=== PATIENT | female | born 1975 | race Caucasian/White ===

== ENCOUNTER 2019-11-26 15:12 | Emergency (ER) | payer SELFPAY ==
[2019-11-26 15:17] VITALS: BP 156/95; PULSE 84; RESP 16; TEMP 36.6; O2SAT 100; BMI 41.5
--- NOTE | 2019-11-26 15:56 | W.ED.SKABFB ---
HPI - Skin/Abscess/Foreign Bdy General: Chief complaint: Skin/Abscess/Foreign Body Stated complaint: Knot on left leg Time Seen by Provider: 11/26/19 15:19 History of Present Illness: HPI narrative: Patient has a swollen tender area on her left thigh lower aspect of it to the medial sidetimes last couple days also states she has urinary frequency MD complaint: other Onset (ago): day(s) (2) Quality: burning Relieving factors: none Associated symptoms: Deny chills, fever(s), nausea or vomiting Review of Systems Narrative: Tender area to the left thigh x2 days history of varicose veins. Const: Denies: fever, chills or body aches Eyes: Denies: change in vision or blurry vision ENMT: Denies: throat pain or nasal congestion Card: Denies: chest pain or shortness of breath on exertion Resp: Denies: shortness of breath, productive cough or non-productive cough GI: Denies: abdominal pain, nausea or vomiting : Reports: urinary frequency Musc: Denies: extremity pain Skin/Breast: Denies: rash Neuro: Denies: headache Psych: Denies: anxiety or depression Alan/Lymph: Denies: easy bruising PFSH ED PFSH: Statuses (acute, chronic, etc) shown below reflect problem list status as previously entered and may not be historically accurate Social History Smoking and tobacco status: current every day smoker Physical Exam Const: COMMON NORMALS: no apparent distress, average body habitus and oriented x3 HENMT: COMMON NORMALS: normocephalic HEAD & SCALP: normal to inspection and normocephalic FACE & SINUS: normal facial exam Eye: COMMON NORMALS: conjunctivae normal GENERAL EYE: normal appearance of both eyes CONJUNCTIVA: Yes conjunctivae normal Neck/C-Spine: COMMON NORMALS: no JVD Chest: COMMONS NORMALS: inspection of chest normal Resp: COMMON NORMALS: normal respiratory effort and clear to auscultation bilaterally AUSCULTATION: clear to auscultation bilaterally Cardio: COMMON NORMALS: no JVD, regular rate and regular rhythm RATE: regular rate RHYTHM: regular rhythm GI: COMMON NORMALS: normal to inspection, nondistended, normoactive bowel sounds Extremity: COMMON NORMALS: normal to inspection and full ROM Neuro: COMMON NORMALS: oriented x3 Skin: OTHER: Left thigh lower aspect medial aspect patient has what appears to be phlebitis to the varicose vein. Course Vital Signs: Vital signs: Vital Signs Temperature 98 F 11/26/19 15:17 Pulse Rate 84 11/26/19 15:17 Respiratory Rate 16 11/26/19 15:17 Blood Pressure 156/95 11/26/19 15:17 Pulse Oximetry 100 11/26/19 15:17 Coding Level of Care Code ED Manager Perioperative for Timothy Cueto
[2019-11-26 16:39] VITALS: BP 123/82; RESP 16
[2019-11-26 17:07] LABS: Urine Appearance SL Hazy (CLEAR); Urine Color Yellow (Yellow)
[2019-11-26 17:09] LABS: Add Urine Microscopic? YES; Bilirubin Urine Neg (NEGATIVE); Blood Urine Neg (Negative); Glucose Urine UA Norm (Normal); Ketones Urine Negative (Negative); Leukocyte Esterase Urine Negative (Negative); Nitrate Urine Negative (Negative); Protein Urine Neg (Negative); Specific Gravity, Urine 1.005 (1.005-1.030); Urobilinogen Urine Norm (Negative); pH Urine 5 (5-7)
[2019-11-26 17:14] LABS: Bacteria Urine TRACE; Squamous Epithelial Cell Urine 15-25 (0-5)
[2019-11-26 17:22] VITALS: BP 123/82; PULSE 78; RESP 18; O2SAT 97
== END 2019-11-26 17:42 | disposition home or self-care (01) ==
PROVIDERS: Emergency Provider Nurse Practitioner Family; Family Provider Internal Medicine; PCP Internal Medicine
DX: R22.42 Localized swelling, mass and lump, left lower limb (principal); R20.8 Other disturbances of skin sensation; R35.0 Frequency of micturition; F17.200 Nicotine dependence, unspecified, uncomplicated; Z86.79 Personal history of other diseases of the circulatory system
CPT/HCPCS: 81001; 99282

== ENCOUNTER 2020-05-07 21:15 | Emergency (ER) | payer SELFPAY ==
[2020-05-07 21:17] VITALS: BP 116/72; PULSE 86; RESP 18; TEMP 36.9; O2SAT 98; BMI 42.9
--- NOTE | 2020-05-07 21:29 | PC.NURSE ---
EKG done at 2124 and shown to ER doctor
[2020-05-07] MEDS: LORazepam 2 mg/mL INJ 1 mL 1 MG IVP (22:11)
[2020-05-07 22:22] VITALS: BP 105/71; PULSE 80; RESP 16; O2SAT 99
--- NOTE | 2020-05-07 22:40 | W.ED.ARRPALP ---
HPI - Arrhythmia/Palpitations General: Chief Complaint: Arrhythmia/Palpitations Stated Complaint: chest pain Time Seen by Provider: 05/07/20 21:29 History of Present Illness: HPI narrative: 44-year-old female with longstanding history of anxiety, thyroid disorder and arrhythmia presents to the emergency department with complaints of racing heart earlier tonight. She reports she has had both SVT as well as atrial fibrillation. Patient has not had atrial fibrillation or she on any blood thinners in quite some time. Patient denies any chest pain she reports she is a little anxious little short of breath. Patient reports she is had symptoms like this multiple times in the past. She has not recently been ill she denies any abdominal pain nausea vomiting or diarrhea. No skin rash. No other symptoms reported. She did take a Xanax just prior to arrival to see if it would help and it did a small degree but not really. MD complaint: rapid heart beat, heart racing , skipped beats , palpitations and irregular heart beat Onset (ago): hour(s) Duration: now resolved Severity: similar to previous episodes Context: occurred during rest Arrhythmia history: atrial fibrillation and SVT Associated symptoms: Reports anxiety, nausea, paresthesias, sense of impending doom and short of breath; Deny cough, diaphoresis, muscle cramps, syncope or vomiting Treatments prior to arrival: other (Xanax) Review of Systems General: Reports: 10 or more systems reviewed and unremarkable except in HPI and below Const: Denies: fever(s), chills or diaphoresis ENMT: Denies: throat pain Card: Reports: palpitations, irregular heart rhythm and lightheadedness; Denies: chest pain or syncope Resp: Denies: dyspnea GI: Reports: nausea; Denies: vomiting : Denies: flank pain or difficulty voiding Musc: Denies: muscle cramps Skin/Breast: Denies: rash or pruritus Neuro: Denies: headache(s) Psych: Reports: anxiety Physical Exam Const: COMMON NORMALS: no acute distress, average body habitus, patient oriented x3, no limitations, healthy appearing, alert and well nourished HENMT: COMMON NORMALS: normocephalic HEAD & SCALP: normocephalic Eye: COMMON NORMALS: Equal, round and reactive pupils present, EOMs intact bilaterally and conjunctivae normal CONJUNCTIVA: Yes conjunctivae normal PUPIL: Yes Equal, round and reactive pupils present Neck/C-Spine: COMMON NORMALS: full ROM, no lymphadenopathy, supple, no meningeal signs, no JVD, Thyroid normal and No carotid bruits THYROID: Thyroid normal Chest: COMMONS NORMALS: normal inspection of the chest and normal palpation of entire chest wall Resp: COMMON NORMALS: normal respiratory effort, No retractions, No use of accessory muscles, clear to auscultation bilaterally and percussion normal AUSCULTATION: clear to auscultation bilaterally PERCUSSION: percussion normal Cardio: COMMON NORMALS: no JVD GI: COMMON NORMALS: Normal to inspection, nondistended, normoactive bowel sounds present, Soft to palpation, non-tender, No hepatosplenomegaly present, no masses and no bruits PALPATION: Yes Soft to palpation and Yes No hepatosplenomegaly present : COMMON NORMALS: Yes no CVA tenderness BLADDER/KIDNEY EXAM: Yes no CVA tenderness Back/Pelvis: COMMON NORMALS: no CVA tenderness Extremity: COMMON NORMALS: normal to inspection, full ROM, capillary refill normal, no joint enlargement, no clubbing, cyanosis or edema, no calf tenderness and no pedal edema Neuro: COMMON NORMALS: patient oriented x3 SENSORIUM/ORIENTATION: Yes alert MENINGEAL SIGNS: Yes no meningeal signs Skin: COMMON NORMALS: no rashes or lesions noted, no wounds, turgor normal, no jaundice, no petechiae and no mottling GENERAL SKIN EXAM: no rashes or lesions noted and turgor normal Course Vital Signs: Vital signs: Vital Signs Temperature 98.5 F 05/07/20 21:17 Pulse Rate 80 05/07/20 22:22 Respiratory Rate 16 05/07/20 22:22 Blood Pressure 105/71 05/07/20 22:22 Pulse Oximetry 99 05/07/20 22:22 MDM - Arrhythmia/Palpitations MDM Narrative: Medical decision making narrative: 44-year-old female with a history of anxiety disorder and thyroid disorder presents to the emergency department with complaints of possible arrhythmia. She does have a history of SVT and atrial fibrillation reportedly. Patient's electrocardiogram revealed sinus rhythm with ventricular rate of 87 and no significant arrhythmia or ST elevation present. Recommend routine labs including thyroid-stimulating hormone and administration of Ativan and serial reexaminations. Discharge Plan Discharge Patient Disposition: Home, Self-Care Clinical Impression: Palpitations, Anxiety Condition: Stable Discharge Orders: Discharge Order (Routine); Ordered 05/07/20 Ordered By: Pato Lowe Referrals: Aaron Liao MD [Primary Care Provider] - Discharge Diet: Advance as tolerated Discharge Activity: Resume usual activity Patient Instructions: Anxiety (ED) Coding Level of Care Code ED Steward/Stewardess Second for Chg Fwd Exam Comprehensive
[2020-05-07 23:50] LABS: Basophils # 0.1 10^3/uL (0.0-0.1); Basophils % 0.4 %; Eosinophils # 0.2 10^3/uL (0.0-0.8); Eosinophils % 1.7 %; Hemoglobin 14.5 g/dL (11.5-15.3); Lymphocytes # 2.5 10^3/uL (0.8-4.8); Lymphocytes % 20.2 %; Mean Corpuscular HGB Conc 32.2 g/dL (30.0-36.0); Mean Corpuscular Hemoglobin 30.3 pg (28.0-34.0); Mean Corpuscular Volume 94.1 fL (81-99); Mean Platelet Volume 10.5 fL (7.4-10.4); Monocytes # 0.8 10^3/uL (0.2-0.9); Monocytes % 6.4 %; Neutrophils # 8.81 10^3/uL (1.8-7.7); Nucleated Red Blood Cells % 0 %; Platelet Count 303 10^3/cmm (130-400); Red Blood Count 4.78 10^6/uL (4.1-5.3); Red Cell Distribution Width 14.8 % (12.1-15.1); White Blood Count 12.4 10^3/uL (4.0-10.0)
[2020-05-08 00:04] VITALS: BP 106/65; PULSE 66; RESP 16; TEMP 36.7; O2SAT 97
[2020-05-08 00:36] LABS: Blood Urea Nitrogen 9 mg/dL (6-20); Carbon Dioxide 24 mmol/L (22-29); Chloride 100 mmol/L (98-107); Glucose 120 mg/dL (65-115); Magnesium 1.8 mg/dL (1.7-2.3); Osmolality Calculated 281 mOsm/kg (285-295); Sodium 137 mmol/L (136-145); Thyroid Stimulating Hormone 1.31 uIU/mL (0.27-4.20)
[2020-05-08 03:22] LABS: Add Urine Microscopic? YES; Bilirubin Urine Neg (NEGATIVE); Blood Urine Neg (Negative); Glucose Urine UA Norm (Normal); Ketones Urine Negative (Negative); Leukocyte Esterase Urine 1+ (Negative); Nitrate Urine Negative (Negative); Protein Urine Neg (Negative); Specific Gravity, Urine 1.015 (1.005-1.030); Urine Appearance Hazy (CLEAR); Urine Color Yellow (Yellow); Urobilinogen Urine Norm (Negative); pH Urine 5 (5-7)
[2020-05-08 03:32] LABS: Add Urine Culture? No; Bacteria Urine 2+; Squamous Epithelial Cell Urine 25-40 (0-5); Transitional Epi Cells Urine 0-4 /hpf; WBC Urine 25-40 /hpf (0-5)
== END 2020-05-08 01:57 | disposition home or self-care (01) ==
PROVIDERS: Emergency Medicine; Emergency Provider Family Medicine; PCP Internal Medicine
DX: R00.2 Palpitations (principal); F41.9 Anxiety disorder, unspecified
CPT/HCPCS: 12345; 36415; 80048; 81001; 81003; 83735; 84443; 85025; 96374; 96375; 99283; J2060

== ENCOUNTER 2023-04-20 09:25 | Emergency (ER) | payer MEDICAID, SELFPAY ==
[2023-04-20 09:37] VITALS: BP 147/95; PULSE 84; RESP 16; TEMP 36.7; O2SAT 98; BMI 39.1
--- NOTE | 2023-04-20 09:53 | ED_ITS ---
HPI - Extremity Problem General: Chief complaint: Extremity Problem,Nontraumatic Stated complaint: Right leg pain Time Seen by Provider: 04/20/23 09:37 Source: patient Mode of arrival: ambulatory Limitations: no limitations History of Present Illness: Patient is a 47-year-old female presents to ED today with a complaint of right lower extremity pain. Patient states she initially began noticing discomfort about 3 days ago after waking up. She states since that time she has noticed swelling to the right calf and pain radiating up to the posterior aspect of her thigh. She has not noticed any redness/warmth or coolness/pallor to the extremity. She has no known history of DVT. No recent surgery, she is not on hormone therapy, no recent periods of prolonged inactivity. MD Complaint: extremity pain and extremity swelling Onset (ago): day(s) Pain Consistency: constant Location: right and lower extremity Radiation: none Relieving factors: nothing Exacerbating factors: nothing Associated symptoms: Reports no associated symptoms; Deny chest pain or fever(s) Context: other (hx of varicose veins) Review of Systems Const: Denies: fever(s), chills, body aches, fatigue or malaise Card: Denies: chest pain, palpitations, lightheadedness, syncope or pre- syncope Resp: Denies: dyspnea Musc: Reports: extremity pain and extremity swelling; Denies: neck pain, back pain, joint pain, joint swelling, joint redness, joint warmth or limited range of motion Neuro: Denies: numbness in extremities, weakness in extremities or sensory changes [facility] ED PFSH: Social History Smoking and tobacco status: current every day smoker Physical Exam Const: COMMON NORMALS: no acute distress, patient oriented x3, no limitations, alert and well nourished GENERAL APPEARANCE: cooperative NUTRITIONAL APPEARANCE: obese ORIENTATION/CONSCIOUSNESS: Yes awake, Yes oriented to person, Yes oriented to place and Yes oriented to time Resp: COMMON NORMALS: normal respiratory effort and clear to auscultation bilaterally AUSCULTATION: clear to auscultation bilaterally Cardio: COMMON NORMALS: regular rate and regular rhythm RATE: regular rate RHYTHM: regular rhythm Extremity: COMMON NORMALS: full ROM, capillary refill normal and no joint enlargement GENERAL: Yes normal exam except as noted OTHER: pt has pain/swelling to R calf/positive Tomeka's; sensation normal; DP/PT pulses and cap refill are normal; varicosities noted Neuro: COMMON NORMALS: patient oriented x3, moves all extremities, no focal motor deficits, no sensory deficits noted and gait normal SENSORIUM/ORIENTATION: Yes alert, Yes oriented to person, Yes oriented to place and Yes oriented to time Skin: COMMON NORMALS: no rashes or lesions noted GENERAL SKIN EXAM: no rashes or lesions noted Course Vital Signs: Vital signs: Vital Signs Temperature 98.0 F 04/20/23 09:37 Pulse Rate 62 04/20/23 12:03 Respiratory Rate 16 04/20/23 09:37 Blood Pressure 131/79 04/20/23 12:03 Pulse Oximetry 94 04/20/23 12:03 Oxygen Delivery Me thod Room Air 04/20/23 09:37 MDM - Extremity (Nontraumatic) Medical Decision Making US negative for DVT. Recommend ice, elevation, compression stockings, follow-up with primary care next week. Return ED precautions given. Discharge Plan Discharge Patient Disposition: Home Clinical Impression: Pain and swelling of right lower leg Condition: Stable Prescriptions: No Action furosemide 40 mg tablet 40 mg PO BID alprazolam 1 mg tablet 1 mg PO TID PRN (Reason: Anxiety) omeprazole 40 mg capsule,delayed release(DR/EC) 40 mg PO DAILY venlafaxine 100 mg tablet 100 mg PO BID potassium chloride 20 mEq tablet,ER particles/crystals 20 meq PO QID levothyroxine 50 mcg tablet 50 mcg PO DAILY metoprolol tartrate 50 mg tablet 50 mg PO BID triamterene-hydrochlorothiazid 37.5-25 mg tablet 1 tab PO DAILY diltiazem HCl 30 mg tablet 30 mg PO TID Aspir-81 81 mg Tablet,Delayed Release (Dr/Ec) 81 mg PO DAILY Discharge Orders: Discharge ED (Routine); Ordered 04/20/23 Ordered By: Berat Cline Referrals: Aaron Liao MD [Primary Care Provider] - Coding Level of Care Code ED Engraver Pantograph for Chg Nory
--- NOTE | 2023-04-20 10:01 | USCV_ITS ---
Mildred Rojas Age: 47 Gender: F : 1975 Exam Date: 04/20/2023 10:33 Ordering Phys: Berta Cline Technologist: Blas Blank [place]am Location[place] [facility] [place] [facility] [place] Indication: rt lowwer extremity pain FINDINGS: Normal 2-D Doppler and augmentation and compressibility throughout the lower extremity venous structures. Additional imaging through the proximal calf veins also reveals no thrombus. Limited evaluation of the greater saphenous vein is patent with no thrombus. CONCLUSIONS No DVT right lower extremity. Dr. Linda Whitman DO (Electronically Signed) Final Date: 20 April 2023 12:50 S
[2023-04-20 12:03] VITALS: BP 131/79; PULSE 62; O2SAT 94
[2023-04-20 13:25] VITALS: RESP 16; O2SAT 100
[2023-04-20] MEDS: morphine 4 mg/mL SDV 1 mL IM (13:25)
[2023-04-20] MEDS: ondansetron 2 mg/ML SDV 2 mL 4 MG IM (13:25)
[2023-04-20 13:33] VITALS: BP 154/96; PULSE 63; RESP 16; O2SAT 100
[2023-04-20 13:34] VITALS: BP 154/96; PULSE 63; RESP 16; O2SAT 100
== END 2023-04-20 13:36 | disposition home or self-care (01) ==
PROVIDERS: Emergency Provider Physician Assistant; PCP Internal Medicine
DX: M79.604 Pain in right leg (principal); M79.89 Other specified soft tissue disorders; Z79.82 Long term (current) use of aspirin; F17.210 Nicotine dependence, cigarettes, uncomplicated
CPT/HCPCS: 93971; 96372; 99284; J2270; J2405

== ENCOUNTER 2023-09-06 10:30 | Emergency (ER) | payer MEDICAID, SELFPAY ==
[2023-09-06 10:55] VITALS: BP 167/86; PULSE 79; RESP 18; TEMP 36.8; O2SAT 98; BMI 40.3
--- NOTE | 2023-09-06 11:20 | ED_ITS ---
HPI - Abdominal Pain General: Chief Complaint: Abdominal Pain Stated Complaint: lower abd pain Time Seen by Provider: 09/06/23 10:58 Source: patient Mode of arrival: ambulatory History of Present Illness: 48-year-old female presents emergency room complaining of left lower quadrant abdominal pain this been going on for the last week. Sharp pain spasming in nature intermittent. It has become more more intense over the last week she previously had hysterectomy still has a left ovary. She denies any medic easier melena dysuria urgency or frequency. MD elicited complaint: abdominal pain Pertinent past history: none Associated Symptoms: Denies chills, dysuria and fever(s) Review of Systems Const: Denies: fever(s) or chills Card: Denies: chest pain Resp: Denies: dyspnea GI: Denies: abdominal pain : Denies: dysuria, urinary frequency or urinary urgency Musc: Denies: neck pain or back pain Skin/Breast: Denies: rash PFSH ED PFSH: Social History Smoking and tobacco/nicotine status: current every day tobacco/nicotine user Physical Exam Const: GENERAL APPEARANCE: cooperative and comfortable ORIENTATION/CONSCIOUSNESS: Yes awake, Yes oriented to person, Yes oriented to place and Yes oriented to time HENMT: COMMON NORMALS: normocephalic, atraumatic and hearing grossly normal bilaterally HEAD & SCALP: normocephalic and atraumatic Resp: COMMON NORMALS: normal respiratory effort, No retractions, No use of accessory muscles and clear to auscultation bilaterally AUSCULTATION: clear to auscultation bilaterally Cardio: COMMON NORMALS: regular rate, regular rhythm and No murmurs present (Cardio) RATE: regular rate RHYTHM: regular rhythm GI: COMMON NORMALS: No hepatosplenomegaly present AUSCULTATION: Yes normoactive bowel sounds PALPATION: Yes Tenderness to palpation present (GI) (Mild left lower quadrant), No Guarding due to palpation present (GI) and Yes No hepatosplenomegaly present Extremity: COMMON NORMALS: normal to inspection, capillary refill normal, no clubbing, cyanosis or edema, no calf tenderness and no pedal edema Neuro: SENSORIUM/ORIENTATION: Yes oriented to person, Yes oriented to place and Yes oriented to time Skin: COMMON NORMALS: no rashes or lesions noted GENERAL SKIN EXAM: no rashes or lesions noted Course Vital Signs: Vital signs: Vital Signs Temperature 98.3 F 09/06/23 10:55 Pulse Rate 79 09/06/23 10:55 Respiratory Rate 18 09/06/23 12:26 Blood Pressure 167/86 09/06/23 10:55 Pulse Oximetry 98 09/06/23 12:26 Oxygen Delivery Me thod Room Air 09/06/23 12:26 MDM - Abdominal Pain Medical Decision Making Labs and imaging reviewed no significant leukocytosis CT shows diverticulitis without perforation or abscess discharge home with outpatient treatment. Medical Records I reviewed the patient's medical records. Lab Data I reviewed the patient's lab results. 09/06/23 11:46 09/06/23 11:46 Labs/Radiology: Laboratory Results WBC 10.72 10^3/uL (3.29-11.43) 09/06/23 11:46 RBC 4.76 10^6/uL (3.85-5.65) 09/06/23 11:46 Hgb 14.60 g/dL (11.27-16.99) 09/06/23 11:46 Hct 44.9 % (36-47) 09/06/23 11:46 MCV 94.3 fl (85-98) 09/06/23 11:46 MCH 30.7 pg (27-33) 09/06/23 11:46 MCHC 32.5 g/dL (30-55) 09/06/23 11:46 RDW 15.1 % (12.1-15.1) 09/06/23 11:46 Plt Count 315 10^3/cmm (157-399) 09/06/23 11:46 MPV 10.0 fL (7.4-10.4) 09/06/23 11:46 Neut % (Auto) 70.4 % 09/06/23 11:46 Lymph % (Auto) 19.6 % 09/06/23 11:46 Dougherty % (Auto) 6.6 % 09/06/23 11:46 Eos % (Auto) 2.4 % 09/06/23 11:46 Baso % (Auto) 0.5 % 09/06/23 11:46 Neut # (Auto) 7.55 10^3/uL (1.8-7.7) 09/06/23 11:46 Lymph # (Auto) 2.1 10^3/uL (0.8-4.8) 09/06/23 11:46 Dougherty # (Auto) 0.7 10^3/uL (0.2-0.9) 09/06/23 11:46 Eos # (Auto) 0.3 10^3/uL (0.0-0.8) 09/06/23 11:46 Baso # (Auto) 0.1 10^3/uL (0.0-0.1) 09/06/23 11:46 Nucleated RBC % (auto) 0 % 09/06/23 11:46 Nucleated RBCs # 0.0 /100WBC 09/06/23 11:46 Sodium 136 mmol/L (136-145) 09/06/23 11:46 Potassium 3.1 mmol/L (3.5-5.1) L 09/06/23 11:46 Chloride 95 mmol/L (98-107) L 09/06/23 11:46 Carbon Dioxide 27 mmol/L (22-29) 09/06/23 11:46 Anion Gap 17.1 (5-19) 09/06/23 11:46 BUN 8 mg/dL (6-20) 09/06/23 11:46 Creatinine 0.9 mg/dL (0.5-0.9) 09/06/23 11:46 GFR Calculation 66.8 mL/min (90-130) L 09/06/23 11:46 Glucose 186 mg/dL (65-115) H 09/06/23 11:46 Calculated Osmolality 285 mOsm/kg (285-295) 09/06/23 11:46 Calcium 9.4 mg/dL (8.5-10.5) 09/06/23 11:46 Total Bilirubin 0.3 mg/dL (0.15-1.2) 09/06/23 11:46 AST 20 U/L (0-32) 09/06/23 11:46 ALT 17 U/L (0-33) 09/06/23 11:46 Alkaline Phosphatase 101 U/L (35-105) 09/06/23 11:46 Total Protein 7.3 g/dL (6.6-8.7) 09/06/23 11:46 Albumin 3.7 g/dL (3.5-5.2) 09/06/23 11:46 Globulin 3.6 g/dL (1.3-4.6) 09/06/23 11:46 Lipase 7 U/L (13-60) L 09/06/23 11:46 Urine Color Dark yellow (Yellow) 09/06/23 11:20 Urine Appearance Clear (CLEAR) 09/06/23 11:20 Urine pH 6 (5-7) 09/06/23 11:20 Ur Specific [place] 1.015 (1.005-1.030) 09/06/23 11:20 Urine Protein Neg (Negative) 09/06/23 11:20 Urine Glucose (UA) Norm (Normal) 09/06/23 11:20 Urine Ketones Negative (Negative) 09/06/23 11:20 Urine Blood Neg (Negative) 09/06/23 11:20 Urine Nitrate Negative (Negative) 09/06/23 11:20 Urine Bilirubin Neg (Negative) 09/06/23 11:20 Urine Urobilinogen Norm mg/dL (Negative) 09/06/23 11:20 Ur Leukocyte Esterase Negative (Negative) 09/06/23 11:20 All radiology interpretation(s) finalized by discharge Discharge Plan Discharge Patient Disposition: Home Clinical Impression: Diverticulitis Condition: Stable Prescriptions: New Cipro 500 mg tablet 500 mg PO BID Qty: 14 0RF hydrocodone-acetaminophen 5-325 mg tablet 1 tab PO Q6H PRN (Reason: pain) Qty: 15 0RF ondansetron HCl 4 mg tablet 4 mg PO Q6H PRN (Reason: nausea and vomiting) Qty: 20 0RF No Action furosemide 40 mg tablet 80 mg PO DAILY alprazolam 1 mg tablet 1 mg PO TID PRN (Reason: Anxiety) omeprazole 40 mg capsule,delayed release(DR/EC) 40 mg PO DAILY venlafaxine 100 mg tablet 100 mg PO BID potassium chloride 20 mEq tablet,ER particles/crystals 20 meq PO QID metoprolol tartrate 50 mg tablet 50 mg PO BID triamterene-hydrochlorothiazid 37.5-25 mg tablet 1 tab PO DAILY diltiazem HCl 30 mg tablet 30 mg PO TID aspirin [Aspir-81] 81 mg Tablet,Delayed Release (Dr/Ec) 81 mg PO DAILY Discharge Orders: Discharge ED (Routine); Ordered 09/06/23 Ordered By: Chandana Wick Referrals: Aaron Liao MD [Primary Care Provider] - Discharge Diet: Usual diet Discharge Activity: Resume usual activity Patient Instructions: Diverticulitis (ED), Diverticulitis Diet (ED), Opioid Safety, Pain Management Activity Restrictions/Additional Instructions: Thank you for choosing [facility] for your healthcare needs today. Please realize this is an emergency room and that we are providing you with a medical screening exam and this may not be complete and all inclusive of all the testing and or work up that you may need to determine your ailment or severity of your illness. It is very important that you follow up as instructed or that you return to the Emergency Department should you have concerns or if your condition changes or worsens in any way. You are seen in the emergency room for left lower quadrant abdominal pain CT shows that you have acute diverticulitis. This can be treated as an outpatient with oral antibiotics pain medications and nausea medications clear liquid diet for the next 24 to 48 hours and advance as tolerated. You should follow-up with your primary care doctor within the next 2 weeks at some point in the next few months you should have a colonoscopy done. Coding Level of Care Code ED Inspector Returned Materials for Timothy Cueto
--- NOTE | 2023-09-06 11:21 | CT_ITS ---
WS: [id number] CT ABDOMEN PELVIS TECHNIQUE: Contrast-enhanced CT of the abdomen and pelvis with coronal and sagittal reformatted image s. CLINICAL INFORMATION: abd pain COMPARISON: 2019 DLP: 1198.[address] scans at [facility] use at least one of these dose optimization techniques: automated e xposure control; mA and/or kV adjustment per patient size (includes targeted exams where dose is matc hed to clinical indication); or iterative reconstruction. FINDINGS: Normal appendix in the RIGHT lower quadrant. No evidence of acute appendicitis. Sigmoid diverticulosi s. Inflammatory stranding and edema in the LEFT lower quadrant about the sigmoid colon compatible wit h acute diverticulitis. No evidence of drainable abscess or fluid collection. Lung bases are well aerated. Diffuse fatty filtration of the liver. Mild hepatomegaly. Normal portal vein and splenic vein. Normal spleen. Spinal granulomas. Normal GE junction. Cholecystectomy clips. M ild fatty atrophy of the pancreas. Normal caliber abdominal aorta. Celiac and SMA are patent. Adrenal glands are normal. Normal renal parenchymal enhancement. No hydronephrosis. Small LEFT renal cyst. Tiny fat-containing umbilical hernia. Multi follicular LEFT ovary is unchanged in appearance. Scleros is along both sacroiliac joints compatible with sacroiliitis. Multiple sclerotic lesions in the aceta bulum and L2 and L3 vertebral bodies unchanged since 2019 likely benign bone islands or enchondromas. IMPRESSION: 1. Acute diverticulitis with inflammatory stranding and edema about the sigmoid colon in the LEFT lo wer quadrant. No evidence of drainable abscess or fluid collection. 2. Normal appendix in the RIGHT lower quadrant. No evidence of acute appendicitis. 3. Hepatomegaly with diffuse fatty filtration of the liver. 4. Prior cholecystectomy. Message LEFT for Dr. Wick 09/06/2023 1:22 PM
[2023-09-06 11:24] LABS: Add Urine Microscopic? NO; Charge for UA Resulting for Rev
[2023-09-06 11:27] LABS: Protein Urine Neg (Negative); Specific Gravity, Urine 1.015 (1.005-1.030); Urine Appearance Clear (CLEAR); Urine Color Dark Yellow (Yellow); pH Urine 6 (5-7)
[2023-09-06 11:28] LABS: Bilirubin Urine Neg (Negative); Blood Urine Neg (Negative); Glucose Urine UA Norm (Normal); Ketones Urine Negative (Negative); Leukocyte Esterase Urine Negative (Negative); Nitrate Urine Negative (Negative); Urobilinogen Urine Norm (Negative)
[2023-09-06 11:53] LABS: Basophils # 0.1 10^3/uL (0.0-0.1); Basophils % 0.5 %; Eosinophils # 0.3 10^3/uL (0.0-0.8); Eosinophils % 2.4 %; Hematocrit 44.9 % (36-47); Lymphocytes # 2.1 10^3/uL (0.8-4.8); Lymphocytes % 19.6 %; Mean Corpuscular HGB Conc 32.5 g/dL (30-55); Mean Corpuscular Hemoglobin 30.7 pg (27-33); Mean Corpuscular Volume 94.3 fl (85-98); Monocytes # 0.7 10^3/uL (0.2-0.9); Monocytes % 6.6 %; Neutrophils # 7.55 10^3/uL (1.8-7.7); Neutrophils % 70.4 %; Nucleated Red Blood Cells % 0 %; Platelet Count 315 10^3/cmm (157-399); Red Blood Count 4.76 10^6/uL (3.85-5.65); Red Cell Distribution Width 15.1 % (12.1-15.1); White Blood Count 10.72 10^3/uL (3.29-11.43)
[2023-09-06 12:11] LABS: Alanine Aminotransferase 17 U/L (0-33); Albumin Level 3.7 g/dL (3.5-5.2); Alkaline Phosphatase 101 U/L (35-105); Anion Gap 17.1 (5-19); Aspartate Amino Transferase 20 U/L (0-32); Blood Urea Nitrogen 8 mg/dL (6-20); Calcium 9.4 mg/dL (8.5-10.5); Carbon Dioxide 27 mmol/L (22-29); Chloride 95 mmol/L (98-107); Globulin 3.6 g/dL (1.3-4.6); Glomerular Filtration Rate 66.8 mL/min (90-130); Glucose 186 mg/dL (65-115); Lipase 7 U/L (13-60); Osmolality Calculated 285 mOsm/kg (285-295); Potassium 3.1 mmol/L (3.5-5.1); Sodium 136 mmol/L (136-145); Total Bilirubin 0.3 mg/dL (0.15-1.2); Total Protein 7.3 g/dL (6.6-8.7)
[2023-09-06 12:26] VITALS: RESP 18; O2SAT 98
[2023-09-06] MEDS: iohexol 350 mg/mL 500 mL Btl (per mL) IV (12:37)
[2023-09-06] MEDS: ondansetron 2 mg/ML SDV 2 mL 4 MG IVP (14:17)
[2023-09-06] MEDS: morphine 4 mg/mL SDV 1 mL IVP (14:18)
== END 2023-09-06 14:22 | disposition home or self-care (01) ==
PROVIDERS: Emergency Provider Family Medicine; PCP Internal Medicine
DX: K57.92 Diverticulitis of intestine, part unspecified, without perforation or abscess without bleeding (principal); Z79.82 Long term (current) use of aspirin; Z72.0 Tobacco use
CPT/HCPCS: 36415; 74177; 80053; 81003; 83690; 85025; 96374; 96375; 99285; J2270; J2405; Q9967

== ENCOUNTER 2023-10-06 19:46 | Emergency (ER) | payer MEDICAID, SELFPAY ==
[2023-10-06 19:47] VITALS: BMI 43.5
--- NOTE | 2023-10-06 19:49 | ECG_ITS ---
[facility] Test Date: 2023-10-06 Pat Name: Mildred Rojas Department: Room: Gender: Female Vinyl Dipper: : 1975 Requested By: Nelson Arellano Order Number: [id number] Jeffrey MD: Solitario Walker M.D. Measurements Intervals [place] Rate: 89 P: 75 DC: 140 QRS: 52 QRSD: 110 T: 61 QT: 380 QTc: 464 Interpretive Statements SINUS RHYTHM ST DEVIATION AND MODERATE T-WAVE ABNORMALITY, CONSIDER ANTERIOR ISCHEMIA [-0.1+ mV T-WAVE IN V3/V4] Compared to ECG 04/10/2019 21:31:03 T-wave abnormality now present Possible ischemia now present Electronically Signed On 10-07-2023 19:36:37 SCOUTS by Solitario Walker M.D. [id number]
[2023-10-06 19:50] VITALS: BP 132/82; PULSE 85; RESP 20; TEMP 36.8; O2SAT 96
--- NOTE | 2023-10-06 19:58 | XRR_ITS ---
PROCEDURE INFORMATION: Exam: XR Chest Exam date and time: 10/06/2023 8:16 PM Age: 48 years old Clinical indication: Chest pressure; Patient HX: C/O chest pain; Additional info: R sided cp TECHNIQUE: Imaging protocol: Radiologic exam of the chest. Views: 1 view. COMPARISON: CR XR chest 1V [id number] 04/10/2019 9:14 PM FINDINGS: Lungs: Right upper lobe calcified granuloma. Pleural spaces: Unremarkable. No pleural effusion. No pneumothorax. Heart/Mediastinum: Unremarkable. No cardiomegaly. Bones/joints: Unremarkable. XR/XR chest 1V portable [id number] IMPRESSION: Negative for infiltrate
--- NOTE | 2023-10-06 20:01 | ED_ITS ---
HPI - Chest Pain 2 General: Chief Complaint: Chest Pain Stated Complaint: Chest Pain Time Seen by Provider: 10/06/23 19:48 History of Present Illness: 48-year-old female with no prior history of coronary disease. She does have history of atrial fibrillation and SVT. She presents after sudden onset right- sided chest pain while at dinner a couple of hours prior to arrival. She is short of breath with her pain. She notes that it is painful to breathe. She has had a cough. No fever. She denies nausea. She has a history of cholecystectomy. She does have a history of reflux, as well as hypertension. Associated symptoms: Reports dyspnea; Deny abdominal pain, fever(s), nausea, palpitations or vomiting Review of Systems 2 Const: Denies: fever(s), chills or body aches Eyes: Denies: change in vision Card: Reports: chest pain; Denies: palpitations Resp: Reports: dyspnea and non-productive cough; Denies: productive cough or wheezing GI: Denies: abdominal pain, nausea, vomiting, diarrhea or hematochezia : Denies: difficulty voiding Skin/Breast: Denies: rash Neuro: Denies: weakness in extremities, dizziness or confusion PFSH ED 2 PFSH: Social History Smoking and tobacco/nicotine status: current every day tobacco/nicotine user Physical Exam 2 Const: COMMON NORMALS: no acute distress GENERAL APPEARANCE: cooperative; not ill appearing and not frail appearing HENMT: COMMON NORMALS: normocephalic, atraumatic and Normal external nose present HEAD & SCALP: normocephalic and atraumatic FACE & SINUS: normal facial exam and face symmetric NOSE: Normal external nose present Eye: COMMON NORMALS: Equal, round and reactive pupils present and EOMs intact bilaterally PUPIL: Yes Equal, round and reactive pupils present Neck/C-Spine: GENERAL: Yes trachea midline Chest: CHEST: Yes Symmetrical chest wall rise and Yes tenderness (Right lower lateral chest wall) Resp: COMMON NORMALS: normal respiratory effort, No retractions, No use of accessory muscles and clear to auscultation bilaterally AUSCULTATION: clear to auscultation bilaterally Cardio: COMMON NORMALS: regular rate and regular rhythm RATE: regular rate RHYTHM: regular rhythm GI: COMMON NORMALS: Normal to inspection, nondistended, normoactive bowel sounds present Extremity: COMMON NORMALS: no pedal edema Neuro: JIMMY COMA SCALE: document GCS findings [place] coma scale eye opening: Spontaneous Jimmy coma scale verbal response: Orientated [place] coma scale motor response: Obey commands Jimmy coma scale total score: 15 S ENSORY EXAM: Yes extremities (intact) Psych: COMMON NORMALS: speech normal SPEECH: Yes normal speech Skin: COMMON NORMALS: no rashes or lesions noted GENERAL SKIN EXAM: no rashes or lesions noted Course 2 Vital Signs: Vital signs: Vital Signs Temperature 98.2 F 10/06/23 19:50 Pulse Rate 85 10/06/23 19:50 Respiratory Rate 20 H 10/06/23 19:50 Blood Pressure 132/82 10/06/23 19:50 Pulse Oximetry 96 10/06/23 19:50 MDM - Chest Pain Medical Decision Making 48-year-old female with mainly right-sided pleuritic chest discomfort. Her vitals have been good. White blood cell count is 12. Creatinine is 1. Blood sugar is 144. Chest x-ray was negative. EKG shows a sinus rhythm in the inferior leads, with biphasic T waves present. [place] is normal. QRS interval is 121 ms, indicating IV conduction delay. Other intervals are normal. Rate is 65. CT of the chest is performed due to high D-dimer, which shows bilateral pulmonary emboli in the segmental and subsegmental branches. With no hypoxia, stable vitals, no right heart strain evident, negative troponins, normal BNP, she was given the choice of observation or home. She would like to go home. She is given Lovenox here. She is given a prescription for rivaroxaban, which should be on formulary for her. Close outpatient follow-up. Return for any worsening symptoms. Lab Data 10/06/23 19:57 10/06/23 19:57 Radiology Impressions Chest X-Ray 10/06/23 19:58 IMPRESSION: Negative for infiltrate Chest CTA 10/06/23 21:48 IMPRESSION: 1. Bilateral pulmonary emboli in the segmental and subsegmental branch pulmonary arteries, negative for right heart strain given an RV to LV ratio of approximately 0.8. 2. Cardiomegaly. 3. Hepatic steatosis. 4. Patchy bilateral largely ground-glass airspace opacities may reflect alveolar edema and/or an infectious process. 5. Left adrenal hypertrophy suspected, similar to prior exam. ADDENDUM: 10/06/23 6554 THIS REPORT CONTAINS FINDINGS THAT MAY BE CRITICAL TO PATIENT CARE. The findings were verbally communicated via telephone conference with NELSON VALENTINO at 10:57 PM RN BARIATRIC on 10/06/2023. The findings were acknowledged and understood. Laboratory Results WBC 11.81 10^3/uL (3.29-11.43) H 10/06/23 19:57 RBC 4.44 10^6/uL (3.85-5.65) 10/06/23 19:57 Hgb 13.60 g/dL (11.27-16.99) 10/06/23 19:57 Hct 40.9 % (36-47) 10/06/23 19:57 MCV 92.1 fl (85-98) 10/06/23 19:57 MCH 30.6 pg (27-33) 10/06/23 19:57 MCHC 33.3 g/dL (30-55) 10/06/23 19:57 RDW 15.8 % (12.1-15.1) H 10/06/23 19:57 Plt Count 319 10^3/cmm (157-399) 10/06/23 19:57 MPV 11.2 fL (7.4-10.4) H 10/06/23 19:57 Neut % (Auto) 68.9 % 10/06/23 19:57 Lymph % (Auto) 21.9 % 10/06/23 19:57 [place] % (Auto) 6.4 % 10/06/23 19:57 Eos % (Auto) 2.2 % 10/06/23 19:57 Baso % (Auto) 0.3 % 10/06/23 19:57 Neut # (Auto) 8.13 10^3/uL (1.8-7.7) H 10/06/23 19:57 Lymph # (Auto) 2.6 10^3/uL (0.8-4.8) 10/06/23 19:57 [place] # (Auto) 0.8 10^3/uL (0.2-0.9) 10/06/23 19:57 Eos # (Auto) 0.3 10^3/uL (0.0-0.8) 10/06/23 19:57 Baso # (Auto) 0.0 10^3/uL (0.0-0.1) 10/06/23 19:57 Nucleated RBC % (auto) 0 % 10/06/23 19:57 Nucleated RBCs # 0.0 /100WBC 10/06/23 19:57 D-Dimer 2.46 ug/mLFEU (0-0.59) H 10/06/23 19:57 Sodium 138 mmol/L (136-145) 10/06/23 19:57 Potassium 3.6 mmol/L (3.5-5.1) 10/06/23 19:57 Chloride 96 mmol/L (98-107) L 10/06/23 19:57 Carbon Dioxide 27 mmol/L (22-29) 10/06/23 19:57 Anion Gap 18.6 (5-19) 10/06/23 19:57 BUN 9 mg/dL (6-20) 10/06/23 19:57 Creatinine 1.0 mg/dL (0.5-0.9) H 10/06/23 19:57 GFR Calculation 59.2 mL/min (90-130) L 10/06/23 19:57 Glucose 144 mg/dL (65-115) H 10/06/23 19:57 Calculated Osmolality 287 mOsm/kg (285-295) 10/06/23 19:57 Calcium 9.5 mg/dL (8.5-10.5) 10/06/23 19:57 Total Bilirubin 0.3 mg/dL (0.15-1.2) 10/06/23 19:57 AST 21 U/L (0-32) 10/06/23 19:57 ALT 26 U/L (0-33) 10/06/23 19:57 Alkaline Phosphatase 100 U/L (35-105) 10/06/23 19:57 Troponin T Baseline < 6 ng/L (0-10) 10/06/23 19:57 Troponin T 120 Minute 6.02 ng/L (0-10) 10/06/23 21:39 Delta Troponin T 0.54082 ABS# (0-10) 10/06/23 21:39 NT-Pro-B Natriuret Pep 68 pg/mL (0-125) 10/06/23 19:57 Total Protein 7.3 g/dL (6.6-8.7) 10/06/23 19:57 Albumin 4.0 g/dL (3.5-5.2) 10/06/23 19:57 Globulin 3.3 g/dL (1.3-4.6) 10/06/23 19:57 Lipase 8 U/L (13-60) L 10/06/23 19:57 All radiology interpretation(s) finalized by discharge Discharge Plan Discharge Patient Disposition: Home Clinical Impression: Pulmonary embolism Condition: Stable Prescriptions: New Percocet 7.5-325 mg tablet 1 tab PO Q6H PRN (Reason: pain) Qty: 10 0RF rivaroxaban 15 mg tablet 15 mg PO BID 21 Days Qty: 42 0RF Rx Instructions: must administer with a meal/food No Action furosemide 40 mg tablet 80 mg PO DAILY alprazolam 1 mg tablet 1 mg PO TID PRN (Reason: Anxiety) omeprazole 40 mg capsule,delayed release(DR/EC) 40 mg PO DAILY venlafaxine 100 mg tablet 100 mg PO BID potassium chloride 20 mEq tablet,ER particles/crystals 20 meq PO QID metoprolol tartrate 50 mg tablet 50 mg PO BID triamterene-hydrochlorothiazid 37.5-25 mg tablet 1 tab PO DAILY diltiazem HCl 30 mg tablet 30 mg PO TID aspirin [Aspir-81] 81 mg Tablet,Delayed Release (Dr/Ec) 81 mg PO DAILY Cipro 500 mg tablet 500 mg PO BID Qty: 14 0RF hydrocodone-acetaminophen 5-325 mg tablet 1 tab PO Q6H PRN (Reason: pain) Qty: 15 0RF ondansetron HCl 4 mg tablet 4 mg PO Q6H PRN (Reason: nausea and vomiting) Qty: 20 0RF Discharge Orders: Discharge ED (Routine); Ordered 10/06/23 Ordered By: Nelson Valentino Referrals: Aaron Liao MD [Primary Care Provider] - 1-3 days Patient Instructions: Pulmonary Embolism (ED), Opioid Safety, Pain Management Activity Restrictions/Additional Instructions: Medication as directed. Return for worsening shortness of breath, worsening chest pain despite treatment, fever, other concerning symptoms. See your doctor next week. He will need to continue medication for treatment of this condition. Coding Level of Care Code ED Lending Advisor for Timothy Cueto
[2023-10-06] MEDS: ondansetron 2 mg/ML SDV 2 mL 4 MG IVP ×2 (20:03→23:29)
[2023-10-06] MEDS: morphine 4 mg/mL SDV 1 mL IVP (20:09)
[2023-10-06 20:10] LABS: Basophils % 0.3 %; Eosinophils # 0.3 10^3/uL (0.0-0.8); Eosinophils % 2.2 %; Hematocrit 40.9 % (36-47); Lymphocytes # 2.6 10^3/uL (0.8-4.8); Lymphocytes % 21.9 %; Mean Corpuscular HGB Conc 33.3 g/dL (30-55); Mean Corpuscular Hemoglobin 30.6 pg (27-33); Mean Corpuscular Volume 92.1 fl (85-98); Mean Platelet Volume 11.2 fL (7.4-10.4); Monocytes # 0.8 10^3/uL (0.2-0.9); Monocytes % 6.4 %; Neutrophils # 8.13 10^3/uL (1.8-7.7); Neutrophils % 68.9 %; Nucleated Red Blood Cells % 0 %; Platelet Count 319 10^3/cmm (157-399); Red Blood Count 4.44 10^6/uL (3.85-5.65); Red Cell Distribution Width 15.8 % (12.1-15.1); White Blood Count 11.81 10^3/uL (3.29-11.43)
[2023-10-06] MEDS: diphenhydrAMINE 50 mg/mL SDV 1mL IVP (20:19)
[2023-10-06 21:08] LABS: D Dimer 2.46 ug/mLFEU (0-0.59)
[2023-10-06 21:16] LABS: Troponin(5th) Baseline < 6 ng/L (0-10)
[2023-10-06 21:19] LABS: Alanine Aminotransferase 26 U/L (0-33); Alkaline Phosphatase 100 U/L (35-105); Aspartate Amino Transferase 21 U/L (0-32); Blood Urea Nitrogen 9 mg/dL (6-20); Calcium 9.5 mg/dL (8.5-10.5); Carbon Dioxide 27 mmol/L (22-29); Chloride 96 mmol/L (98-107); Globulin 3.3 g/dL (1.3-4.6); Glomerular Filtration Rate 59.2 mL/min (90-130); Glucose 144 mg/dL (65-115); Lipase 8 U/L (13-60); NT Pro B Type Natriuretic Pept 68 pg/mL (0-125); Osmolality Calculated 287 mOsm/kg (285-295); Sodium 138 mmol/L (136-145); Total Bilirubin 0.3 mg/dL (0.15-1.2); Total Protein 7.3 g/dL (6.6-8.7)
[2023-10-06 21:30] LABS: Anion Gap 18.6 (5-19); Potassium 3.6 mmol/L (3.5-5.1)
[2023-10-06 21:45] VITALS: BP 136/95; PULSE 72; RESP 20; O2SAT 91
--- NOTE | 2023-10-06 21:48 | CTR_ITS ---
PROCEDURE INFORMATION: Exam: CTA Chest With Contrast Exam date and time: 10/06/2023 10:14 PM Age: 48 years old Clinical indication: Pain and abnormal findings; Abnormal diagnostic tests; Elevated d-dimer; Chest pressure; Patient HX: Chest pain with dimer of 2.47. TECHNIQUE: Imaging protocol: Computed tomographic angiography of the chest with contrast. Exam focused on the arteries. 3D rendering (Not supervised by radiologist): MIP and/or 3D reconstructed images were created by the technologist. Radiation optimization: All CT scans at this facility use at least one of these dose optimization techniques: automated exposure control; mA and/or kV adjustment per patient size (includes targeted exams where dose is matched to clinical indication); or iterative reconstruction. Contrast material: OMNI 350; Contrast volume: 60 ml; Contrast route: INTRAVENOUS (IV); REPORTING DATA: Count of CT and Cardiac NM exams in prior 12 months: This patient has received [address] and 0 known cardiac nuclear medicine studies in the 12 months prior to the current study. COMPARISON: CT angio chest w abd pel w con 08/14/2017 10:25 PM RADIATION DOSE METRICS: Total DLP (mGy-cm): 510.53 FINDINGS: Pulmonary arteries: Bilateral pulmonary emboli in the segmental and subsegmental branch pulmonary arteries, negative for right heart strain given an RV to LV ratio of approximately 0.8. Aorta: Unremarkable. No aortic aneurysm. No aortic dissection. Lungs: Patchy bilateral largely ground-glass airspace opacities may reflect alveolar edema and/or an infectious process. Pleural spaces: Unremarkable. No pneumothorax. No pleural effusion. Heart: Cardiomegaly. Lymph nodes: Unremarkable. No enlarged lymph nodes. Liver: Hepatic steatosis. Adrenal glands: Left adrenal hypertrophy suspected, similar to prior exam. Bones/joints: Unremarkable. No acute fracture. Soft tissues: Unremarkable. CT/CT angio chest PE protcl [id number] IMPRESSION: 1. Bilateral pulmonary emboli in the segmental and subsegmental branch pulmonary arteries, negative for right heart strain given an RV to LV ratio of approximately 0.8. 2. Cardiomegaly. 3. Hepatic steatosis. 4. Patchy bilateral largely ground-glass airspace opacities may reflect alveolar edema and/or an infectious process. 5. Left adrenal hypertrophy suspected, similar to prior exam.
--- NOTE | 2023-10-06 21:58 | ECG_ITS ---
[facility] Test Date: 2023-10-06 Pat Name: Mildred Rojas Department: Room: Gender: Female Software Installation Engineer: : 1975 Requested By: Nelson Arellano Order Number: [id number] Jeffrey MD: Solitario Walker M.D. Measurements Intervals [place] Rate: 65 P: 66 WI: 148 QRS: 16 QRSD: 121 T: 13 QT: 419 QTc: 438 Interpretive Statements SINUS RHYTHM MODERATE INTRAVENTRICULAR CONDUCTION DELAY [110+ ms QRS DURATION] NONSPECIFIC ST & T-WAVE ABNORMALITY Compared to ECG 10/06/2023 19:49:12 Intraventricular conduction delay now present Possible ischemia no longer present T-wave abnormality still present Electronically Signed On 10-07-2023 19:47:31 GAS PIPE LAYER by Solitario Walker M.D. [email or web address]
[2023-10-06 22:04] LABS: Troponin 5 2HR 6.02 ng/L (0-10); Troponin 5 2HR Delta 0.02001 ABS# (0-10)
[2023-10-06] MEDS: iohexol 350 mg/mL 500 mL Btl (per mL) IV (22:27)
[2023-10-06 22:59] VITALS: BP 132/78; PULSE 68; RESP 14; O2SAT 95
[2023-10-06 23:30] VITALS: BP 126/89; PULSE 67; RESP 14; O2SAT 94
[2023-10-06 23:36] VITALS: RESP 19; O2SAT 95
[2023-10-06] MEDS: fentaNYL 50 mcg/mL INJ 2mL 100 MCG IVP (23:36)
[2023-10-06] MEDS: enoxaparin 120 mg/0.8 mL Syringe SUBCUT (23:48)
[2023-10-06] MEDS: oxyCODONE-APAP 5-325 mg Tablet 2 TAB PO (23:50)
[2023-10-07] VITALS: BP 139/98; PULSE 69; RESP 14; O2SAT 94
[2023-10-07 00:43] VITALS: BP 159/65; PULSE 80; RESP 21; O2SAT 95
[2023-10-07 03:51] LABS: Adenovirus Not Detected (NOT DETECT); Chlamydia Pneumoniae Not Detected (NOT DETECT); Coronavirus 229E,HKU1,NL63,OC4 Not Detected (NOT DETECT); Human Metapneumovirus Not Detected (NOT DETECT); Human Rhinovirus/Enterovirus Not Detected (NOT DETECT); Influenza A Not Detected (NOT DETECT); Influenza A H1 Not Detected (NOT DETECT); Influenza A H1-2009 Not Detected (NOT DETECT); Influenza A H3 Not Detected (NOT DETECT); Influenza B Not Detected (NOT DETECT); Mycoplasma Pneumoniae Not Detected (NOT DETECT); Parainfluenza Virus Type 1 Not Detected (NOT DETECT); Parainfluenza Virus Type 2 Not Detected (NOT DETECT); Parainfluenza Virus Type 3 Not Detected (NOT DETECT); Parainfluenza Virus Type 4 Not Detected (NOT DETECT); Respiratory Syncytial Virus A Not Detected (NOT DETECT); Respiratory Syncytial Virus B Not Detected (NOT DETECT); SARS-COV-2 Not Detected (NOT DETECT)
== END 2023-10-07 00:43 | disposition home or self-care (01) ==
PROVIDERS: Emergency Provider Emergency Medicine; PCP Internal Medicine
DX: I26.99 Other pulmonary embolism without acute cor pulmonale (principal); Z79.82 Long term (current) use of aspirin; Z72.0 Tobacco use; Z11.52 Encounter for screening for COVID-19
CPT/HCPCS: 36415; 71045; 71275; 80053; 83690; 83880; 84484; 85025; 85378; 87635; 93005; 96372; 96374; 96375; 96376; 99285; J1200; J1650; J2270; J2405; J3010; Q9967

== ENCOUNTER 2025-08-23 14:19 | Emergency (ER) | payer MEDICAID, SELFPAY ==
--- OUTSIDE RECORDS SUMMARY | 2024-06-24 07:00 | XMS_ITS ---
Author Organization [facility] Address [address] [place] [address] Care Team Providers Care Computer Information Science Professor Name Role Phone Aaron Liao MD Primary Care Provider Alejandro Carpenter [phone] REASON FOR VISIT SVT/Paroxysmal Afib per Dr. Liao- 01/10/24 Encounters Encounter Location Date Provider Diagnosis [facility] [address] [place] [phone] 06/24/2024 Alejandro Sales Plan Of Treatment Next Appt Details Provider Name:Dianne Gómez karla, 08/27/2025 01:00:00 PM, [address] [place] [address], [phone], Progress Notes * Mildred ROJAS ADOB:[birth year] (50 yo F)Acc No.[id number]:06/24/2024 Progress Notes Patient: Mildred Pierce Provider: Olinda Sales MD :1975 A ge:49 Y S ex:Female Date:06/24/2024 Address: [facility], [id number] Pcp:aAron Liao MD Subjective: * Chief Complaints: * S VT/Paroxysmal Afib per Dr. Liao- 01/10/24 * Electronic signature of Ricco Sales MD on 08/23/2025 at 02:22 PM METAL FINISH INSPECTOR Sign off status: Pending * Provider: Olinda Sales MD Date: 0 06/24/2024 Generated for Valdemar estrella/Rolan/Yolanda on: 10/23/2024 02:22 PM METAL FINISH INSPECTOR
--- OUTSIDE RECORDS SUMMARY | 2024-06-26 07:45 | XMS_ITS ---
Author Organization [facility] Address [address] [place] [address] Care Team Providers Care Machine Set Up Technician Name Role Phone Aaron Liao MD Primary Care Provider Alejandro Carpenter [phone] Encounters Encounter Location Date Provider Diagnosis [facility] [address] [place] [phone] 06/26/2024 Alejandro Sales Plan Of Treatment Next Appt Details Provider Name:Dianne Gómez karla, 08/27/2025 01:00:00 PM, [address] [place] [address], [phone], Progress Notes * Mildred ROJAS ADOB:[birth year] (50 yo F)Acc No.[id number]:06/26/2024 Patient: Vilma bartholomewMildred ontiveros Provider: Olinda Sales MD :1975 A ge:49 Y S ex:Female Date:06/26/2024 Address:[facility] [facility] [place], [id number] Pcp:Aaron Liao MD Check In:01:48 PM CSTCheck O ut:01:49 PM FISHER SPONGE HOOKING Billing Information: * Procedure Codes: * Electronic signature of Ricco Sales MD on 08/23/2025 at 02:22 PM FISHER SPONGE HOOKING Sign off status: Pending * Provider: Olinda Sales MD Date: 0 06/26/2024 Generated for Valdemar estrella/Rolan/Yolanda on: 1 10/23/2024 02:22 PM FISHER SPONGE HOOKING
--- OUTSIDE RECORDS SUMMARY | 2025-01-21 02:15 | XMS_ITS ---
Author Organization [facility] Address [address] [place] [address] Care Team Providers Care Gis Consultant Name Role Phone Aaron Liao MD Primary Care Provider Alejandro Carpenter [phone] Encounters Encounter Location Date Provider Diagnosis [facility] [address] [place] [phone] 01/21/2025 Alejandro Sales Plan Of Treatment Next Appt Details Provider Name:Dianne Gómez karla, 08/27/2025 01:00:00 PM, [address] [place] [address], [phone], Progress Notes * Mildred ROJAS ADOB:[birth year] (50 yo F)Acc No.[id number]:01/21/2025 Patient: Vilma Mildred liu Provider: Olinda Sales MD :1975 A ge:49 Y S ex:Female Date:01/21/2025 Address:[facility], [id number] Pcp:Aaron Liao MD Billing Information: * Procedure Codes: * Electronic signature of Ricco Sales MD on 08/23/2025 at 02:22 PM ATHLETE MANAGER Sign off status: Pending * Provider: Olinda Sales MD Date: 0 01/21/2025 Generated for Valdemar estrella/Faxing/eTransmitting on: 10/23/2024 02:22 PM ATHLETE MANAGER
--- OUTSIDE RECORDS SUMMARY | 2025-02-03 07:00 | XMS_ITS ---
Author Organization [facility] Address [address] [place] [address] Care Team Providers Care Credit Officer Name Role Phone Aaron Liao MD Primary Care Provider Alejandro Carpenter [phone] Encounters Encounter Location Date Provider Diagnosis [facility] [address] [place] [phone] 02/03/2025 Alejandro Sales Plan Of Treatment Next Appt Details Provider Name:Dianne Gómez karla, 08/27/2025 01:00:00 PM, [address] [place] [address], [phone], Progress Notes * Mildred ROJAS ADOB:[birth year] (50 yo F)Acc No.[id number]:02/03/2025 Patient: Vilma Mildred liu Provider: Olinda Sales MD :1975 A ge:49 Y S ex:Female Date:02/03/2025 Address:[facility] [facility] [facility], [id number] Pcp:Aaron Liao MD * Electronic signature of Ricco Sales MD on 08/23/2025 at 02:23 PM TRANSPLANT COORDINATOR Sign off status: Pending * Provider: Olinda Sales MD Date: 0 02/03/2025 Generated for Valdemar estrella/Rolan/eTransmitting on: 1 10/23/2024 02:23 PM TRANSPLANT COORDINATOR
--- OUTSIDE RECORDS SUMMARY | 2025-02-09 02:15 | XMS_ITS ---
Author Organization [facility] Address [address] [place] [address] Care Team Providers Care Slitter Creaser Slotter Operator Name Role Phone Aaron Liao MD Primary Care Provider Alejandro Carpenter [phone] Encounters Encounter Location Date Provider Diagnosis [facility] [address] [place] [phone] 02/09/2025 Alejandro Sales Plan Of Treatment Next Appt Details Provider Name:Dianne Gómez karla, 08/27/2025 01:00:00 PM, [address] [place] [address], [phone], Progress Notes * Mildred ROJAS ADOB:[birth year] (50 yo F)Acc No.[id number]:02/09/2025 Patient: Vilma Mildred liu Provider: Olinda Sales MD :1975 A ge:49 Y S ex:Female Date:02/09/2025 Address:[facility] [facility] [facility], [id number] Pcp:Aaron Liao MD Check In:07:48 AM WHIZZER OPERATOR Billing Information: * Procedure Codes: * Electronic signature of Ricco Sales MD on 08/23/2025 at 02:23 PM WHIZZER OPERATOR Sign off status: Pending * Provider: Olinda Sales MD Date: 0 02/09/2025 Generated for Valdemar estrella/Rolan/Yolanda on: 1 10/23/2024 02:23 PM WHIZZER OPERATOR
--- OUTSIDE RECORDS SUMMARY | 2025-03-03 03:30 | XMS_ITS ---
Author Organization [facility] Address [address] [place] [address] Care Team Providers Care Mortar Mixer Operator Name Role Phone Aaron Liao MD Primary Care Provider Unavail able Alejandro Sales Unavailable [phone] Dianne Park Unavailable [phone] REASON FOR VISIT 4 wks s/p 03/04/25 angio/lg Encounters Encounter Location Date Provider Diagnosis [facility] [address] [place] [address], [place] [address] 03/03/2025 Dianne Park Plan Of Treatment Next Appt Details Provider Name:Dianne acosta, 08/27/2025 01:00:00 PM, [address] [place] [address], [place], [phone], Progress Notes * Mildred ROJAS ADOB:[birth year] (50 yo F)Acc No.[id number]:03/03/2025 Patient: Vilma Mildred liu Provider: Kevin Park NP :1975 A ge:49 Y S ex:Female Date:03/03/2025 Address:[address] [place] [address] [facility], [id number] Pcp:Aaron Liao MD Subjective: * Chief Complaints: * 4 wks s/p 03/04/25 angio/lg * Electronic signature of Dianne Park MSN, BUTTONHOLE MARKER-C on 08/23/2025 at 02:23 PM VOCATIONAL NURSING INSTRUCTOR Sign off status: Pending * Provider: Kevin Park NP Date: 0 03/03/2025 Generated for Valdemar estrella/Rolan/Yolanda on: 1 10/23/2024 02:23 PM VOCATIONAL NURSING INSTRUCTOR
--- OUTSIDE RECORDS SUMMARY | 2025-03-04 04:00 | XMS_ITS ---
Author Organization [facility] Address [address] [place] [address] Care Team Providers Care Employee Relations Specialist Name Role Phone Aaron Liao MD Primary Care Provider Alejandro Carpenter [phone] REASON FOR VISIT Right rad approach [facility] possible ptca 03/04/2025 @ 10 am, check in at 8 am//gs Encounters Encounter Location Date Provider Diagnosis [facility] [address] [place] [phone] 03/04/2025 Alejandro Sales Plan Of Treatment Next Appt Details Provider Name:Dianne Gómez karla, 08/27/2025 01:00:00 PM, [address] [place] [address], [place], [address], Progress Notes * Mildred ROJAS ADOB:[birth year] (50 yo F)Acc No.[id number]:03/04/2025 [place] Patient: Vilma Mildred liu Provider: Olinda Sales MD :1975 A ge:49 Y S ex:Female Date:03/04/2025 Address:[address] [facility], [id number] Pcp:Aaron Liao MD Subjective: * Chief Complaints: * R ight rad approach [facility] possible ptca 03/04/2025 @ 10 am, check in at 8 am//gs Billing Information: * Procedure Codes: * Electronic signature of Ricco Sales MD on 08/23/2025 at 02:23 PM MODEL ENGINE MECHANIC Sign off status: Pending * Provider: Olinda Sales MD Date: 0 03/04/2025 Generated for Valdemar estrella/Rolan/Yolanda on: 1 10/23/2024 02:23 PM MODEL ENGINE MECHANIC
--- OUTSIDE RECORDS SUMMARY | 2025-05-07 04:30 | XMS_ITS ---
Author Organization [facility] Address [address] [place] [address] Care Team Providers Care Cubing Machine Tender Name Role Phone Aaron Liao MD Primary Care Provider Unavail able Alejandro Sales Unavailable [phone] Lenin Walker Unavailable [phone] REASON FOR VISIT [id number] Encounters Encounter Location Date Provider Diagnosis [facility] [address] [place] [address] [place] [address] 05/07/2025 Lenin Walker Plan Of Treatment Next Appt Details Provider Name:Dianne Gómez karla, 08/27/2025 01:00:00 PM, [address], [phone], Progress Notes * Mildred ROJAS ADOB:[birth year] (50 yo F)Acc No.[id number]:05/07/2025 Progress Notes Patient: Vilma brodyjúnior Mildred Edgardo Provider: Bryce Walker MD :1975 A ge:49 Y S ex:Female Date:05/07/2025 Address:[address] [place] [id number] Pcp:Aaron Liao MD Subjective: * Chief Complaints: * [phone] Care Plan Details* * Electronic signature of Estela Walker MD on 08/23/2025 at 02:22 PM CHILD NURSE Sign off status: Pending * Provider: Bryce Walker MD Date: 0 05/07/2025 Generated for Valdemar estrella/Rolan/Yolanda on: 1 10/23/2024 02:22 PM CHILD NURSE
[2025-08-23 14:19] VITALS: BP 137/96; PULSE 157; RESP 18; TEMP 38.1; O2SAT 96; BMI 48.4
--- NOTE | 2025-08-23 14:23 | XRR_ITS ---
PROCEDURE INFORMATION: Exam: XR Chest Exam date and time: 08/23/2025 2:42 PM Age: 50 years old Clinical indication: Pain; Chest pressure; Prior surgery; Surgery date: 6+ months; Surgery type: Cardiac stents; Additional info: Chest pain; SOB. TECHNIQUE: Imaging protocol: Radiologic exam of the chest. Views: 1 view. COMPARISON: CT angio chest PE protcl [id number] 10/06/2023 10:14 PM FINDINGS: Lungs: Mild increased density density in the lower lungs more marked on the left. Some of this may represent overlying soft tissue but some may represent some mild edema. Stable granuloma right upper lobe. Pleural spaces: Unremarkable. No pleural effusion. No pneumothorax. Heart/Mediastinum: Mild cardiomegaly. Pulmonary vascularity not congested. Bones/joints: Uerq-tr-gvhwqtzu degenerative changes thoracic spine. Mild degenerative changes AC joints. Upper abdomen: Unremarkable. XR/XR chest 1V portable 30748 IMPRESSION: 1. Mild increased density in the lower lungs more prominent on the left. Some may represent overlying soft tissue but this suspicious suspicious for edema. 2. Mild cardiomegaly. 3. Degenerative changes thoracic spine and AC joints.
--- OUTSIDE RECORDS SUMMARY | 2025-08-23 14:23 | XMS_ITS | Patient Health Record ---
Author Organization [facility] Address [address] [place] [address] Care Team Providers Care Show Design Supervisor Name Role Phone Aaron Liao MD Primary Care Provider Unavail able Henrry Alejandro Unavailable [phone] Lenin Walker Unavailable [phone] Dianne Park Unavailable [phone] Allergies Allergen (clinical drug ingredient) Drug/Non Drug Allergy documented on EMR Reaction Allergy Type Onset Date Status sulfamethoxazole / trimethoprim Sulfamethoxazole-Tri methoprim , Drug Allergy Active cephalexin Cephalexin , Drug Allergy Activ e morphine Morphine Unknown Drug Allergy Active Substance with sulfonamide structure and antibacterial mechanism of action (substance) Sulfa Antibiotics hives Drug Allergy A ctive Results Component Value Reference Range Flag Notes Schedule Confirmation Reviewed date:03/09/2025 08:09:28 AM Interpretation: Performing Lab: Notes/Report: Heart Cath Lt poss PTCA NM Lexiscan Cardiolite-[id number] Reviewed date:02/09/2025 03:49:06 PM Interpretation: Performing Lab: Notes/Report: [id number] NM Lexiscan Cardiolite-[id number] Reviewed date:02/11/2025 04:42:01 PM Interpretation: Performing Lab: Notes/Report: See Below For Report NM Lexiscan Cardiolite Read See Below For Report Lipid Panel Reflex DLDL 8003 0, 21902 Reviewed date:03/09/2025 08:09:28 AM Interpretation: Performing Lab: Notes/Report: Trig 198 NA Classification Guidelines:Triglyceride s Adults: >20yrs Desirable <150 Borderline High 150-199 High 200-499 Very high >=500 Children: Male 0-4 yr 22-99 5-9 yr 30-101 10-14 yr 32-125 15-19 yr 37-148 Children: Female 0-4 yr 34-112 5-9 yr 32-105 10-14 yr 37-131 15-19 yr 39-132 Chol 191 <=200 MG/DL HDL 29 39-96 MG/DL LOW Reference Ranges:HDL Male: 5-9y 38-75 10-14y 37-74 15-19y 30-63 >=20y 40-59 Female: 5-9y 36-73 10-14y 37-70 15-19y 35-74 >=20y 40-59 CH/HDL 6.6 0.0-4.9 RATIO HI LDL 122 0-130 MG/DL LDL result is inaccurate , if Trig is >400 mg/dl. See DLDL result. Basic Metabolic Panel (BMP) 34930 Reviewed date:03/09/2025 08:09:28 AM Interpretation: Performing Lab: Notes/Report: Sodium 136 136-145 MMOL/L Potassium 3.6 3.5-5.1 MMOL/L Chloride 100 98-107 MMOL/L CO2 29.3 20.0-31.0 MMOL/L Glucose Serum 166 71-110 MG/DL HI Testing p erformed at [facility], [address] [place] [address] [place] [address]. CLIA ID#: [id number] BUN 10 7-21 MG/DL Creat 1.00 .51-1.17 MG/DL W-ynjpwu-l-benzoquinon e imine (NAPQI) is a metabolite of acetaminophen, NAPQI concentrations of apparoximately 10 mg/L correlation to toxic levels of acetaminophen demonstrates a greater than or equil to 10% change in results. NAPQI concentrations greater than this may lead to falsely depressed results for patient samples. Use of this assay is not recommended for patients undergoing treatment with phenindione, due to the potential for falsely depressed results. GFR 68.8 NA Calculation pe rformed from GFR calculator provided by the National Kidney Foundation. Glomerular Filtration rate(GRF) is the best overall index of kidney function. Normal GFR varies according to age,sex, body size, and declines with age. The National Kidney Foundation recommends using the CKD-EPI Creatinine Equation(2020) to estimate GFR. Anion Gap 10 5-15 BUN/Creat Ratio 10.0 12.0-20.0 % LOW Calcium 8.6 8.7-10.4 MG/DL LOW Osmo Serum,Calculated 285 280-300 MOSM/KG Troponin-I 28413 Reviewed date:03/09/2025 08:09:28 AM Interpretation: Performing Lab: Notes/Report: Troponin-I 16 2-34 pg/mL WBC Auto Diff--93253 Reviewed date:03/09/2025 08:09:28 AM Interpretation: Performing Lab: Notes/Report: Added by Discern Rules Neutro Auto% 53.3 40.0-70.0 % Lymph Auto% 34.9 22.0-44.0 % [place] Auto% 7.5 3.0-7.0 % HI Eos Auto% 3.2 2.0-4.0 % Baso Auto% 0.6 0.0-1.0 % NRBC% .00 .00-.20 /100 intact WBC's Neutro Abs 4.31 .80-7.70 Absolute Neutrophil Count 4310 NA Lymph Abs 2.82 .10-4.10 [place] Abs .61 .20-1.00 Eos Abs .26 .00-.40 Baso Abs .05 .00-.20 NRBC# .00 .00-.20 X10'3 Imm Gran Abs .04 .00-.10 Imm Gran% .5 .0-.4 % HI CBC Ref[place] Diff 27[address], 8 1949 Reviewed date:03/09/2025 08:09:28 AM Interpretation: Performing Lab: Notes/Report: WBC 8.1 4.5-11.0 X10'3 RBC 4.31 4.00-5.20 X10'6 Hgb 12.2 12.0-16.0 G/DL Hct 39.0 36.0-46.0 % MCV 90.5 80.0-100.0 FL MCH 28.3 27.0-31.0 PG MCHC 31.3 31.0-37.0 G/DL Platelet 337 150-400 X10'3 RDW-SD 52.9 35.0-49.0 FL HI RDW-CV 15.9 12.2-15.6 % HI MPV 10.4 9.2-12.0 FL Review Auto Diff Conf POCT-ACT--NO CPT Reviewed date:03/09/2025 08:09:28 AM Interpretation: Performing Lab: Notes/Report: POCT-ACT 241 75-120 SEC HI zzzHeart Cath Lt poss PTCA Reviewed date:03/09/2025 08:09:28 AM Interpretation: Performing Lab: Notes/Report: [id number] Lipid Panel Reflex DLDL 8006 1, 57171 Reviewed date:03/09/2025 08:09:28 AM Interpretation: Performing Lab: Notes/Report: Diagnosis Description: Abnormal result of other cardiovascular function study Diagnosis Description: Paroxysmal atrial fibrillation Diagnosis Description: Gastro-esophageal reflux disease without esophagitis Diagnosis Description: Chest pain, unspecified Diagnosis Description: Shortness of breath Diagnosis Description: Palpitations Diagnosis Description: Other fatigue Trig 151 NA Classification Guidelines:Triglyceride s Adults: >20yrs Desirable <150 Borderline High 150-199 High 200-499 Very high >=500 Children: Male 0-4 yr 22-99 5-9 yr 30-101 10-14 yr 32-125 15-19 yr 37-148 Children: Female 0-4 yr 34-112 5-9 yr 32-105 10-14 yr 37-131 15-19 yr 39-132 Chol 225 <=200 MG/DL HI HDL 34 39-96 MG/DL LOW Reference Ranges:HDL Male: 5-9y 38-75 10-14y 37-74 15-19y 30-63 >=20y 40-59 Female: 5-9y 36-73 10-14y 37-70 15-19y 35-74 >=20y 40-59 CH/HDL 6.7 0.0-4.9 RATIO HI LDL 161 0-130 MG/DL HI LDL result is inaccurate , if Trig is >400 mg/dl. See DLDL result. Basic Metabolic Panel (BMP) 36525 Reviewed date:03/09/2025 08:09:28 AM Interpretation: Performing Lab: Notes/Report: Diagnosis Description: Abnormal result of other cardiovascular function study Diagnosis Description: Paroxysmal atrial fibrillation Diagnosis Description: Gastro-esophageal reflux disease without esophagitis Diagnosis Description: Chest pain, unspecified Diagnosis Description: Shortness of breath Diagnosis Description: Palpitations Diagnosis Description: Other fatigue Sodium 137 136-145 MMOL/L Potassium 4.1 3.5-5.1 MMOL/L Chloride 101 98-107 MMOL/L CO2 30.2 20.0-31.0 MMOL/L Glucose Serum 106 71-110 MG/DL Testing eliud porras at [facility], [address] [place] [address] Dr. Ignacio Laughlin, [place] [address]. CLIA ID#: [id number] BUN 8 7-21 MG/DL Creat .97 .51-1.17 MG/DL B-noxglj-v-benzoquinon e imine (NAPQI) is a metabolite of acetaminophen, NAPQI concentrations of apparoximately 10 mg/L correlation to toxic levels of acetaminophen demonstrates a greater than or equil to 10% change in results. NAPQI concentrations greater than this may lead to falsely depressed results for patient samples. Use of this assay is not recommended for patients undergoing treatment with phenindione, due to the potential for falsely depressed results. GFR 71.4 NA Calculation pe rformed from GFR calculator provided by the National Kidney Foundation. Glomerular Filtration rate(GRF) is the best overall index of kidney function. Normal GFR varies according to age,sex, body size, and declines with age. The National Kidney Foundation recommends using the CKD-EPI Creatinine Equation(2020) to estimate GFR. Anion Gap 10 5-15 BUN/Creat Ratio 8.2 12.0-20.0 % LOW Calcium 9.9 8.7-10.4 MG/DL Osmo Serum,Calculated 283 280-300 MOSM/KG WBC Auto Diff--75669 Reviewed date:03/09/2025 08:09:28 AM Interpretation: Performing Lab: Notes/Report: Added by Discern Rules Neutro Auto% 60.0 40.0-70.0 % Lymph Auto% 24.7 22.0-44.0 % [place] Auto% 9.6 3.0-7.0 % HI Eos Auto% 3.0 2.0-4.0 % Baso Auto% 1.0 0.0-1.0 % NRBC% .00 .00-.20 /100 intact WBC's Neutro Abs 4.87 .80-7.70 Absolute Neutrophil Count 4870 NA Lymph Abs 2.00 .10-4.10 [place] Abs .78 .20-1.00 Eos Abs .24 .00-.40 Baso Abs .08 .00-.20 NRBC# .00 .00-.20 X10'3 Imm Gran Abs .14 .00-.10 HI Imm Gran% 1.7 .0-.4 % HI CBC Reflex Man Diff 76957, 8 5007 Reviewed date:03/09/2025 08:09:28 AM Interpretation: Performing Lab: Notes/Report: Diagnosis Description: Abnormal result of other cardiovascular function study Diagnosis Description: Paroxysmal atrial fibrillation Diagnosis Description: Gastro-esophageal reflux disease without esophagitis Diagnosis Description: Chest pain, unspecified Diagnosis Description: Shortness of breath Diagnosis Description: Palpitations Diagnosis Description: Other fatigue WBC 8.1 4.5-11.0 X10'3 RBC 4.78 4.00-5.20 X10'6 Hgb 13.2 12.0-16.0 G/DL Hct 43.0 36.0-46.0 % MCV 90.0 80.0-100.0 FL MCH 27.6 27.0-31.0 PG MCHC 30.7 31.0-37.0 G/DL LOW Platelet 357 150-400 X10'3 RDW-SD 52.4 35.0-49.0 FL HI RDW-CV 15.9 12.2-15.6 % HI MPV 10.0 9.2-12.0 FL Review Auto Diff Conf Partial Thromboplastin Time 08456 Reviewed date:03/09/2025 08:09:28 AM Interpretation: Performing Lab: Notes/Report: PTT 23.7 22.6-31.8 SEC Therapeutic Range: 60-100. Critical Value Starting at > 100. Prothrombin Time 74905 Reviewed date:03/09/2025 08:09:28 AM Interpretation: Performing Lab: Notes/Report: Diagnosis Description: Abnormal result of other cardiovascular function study Diagnosis Description: Paroxysmal atrial fibrillation Diagnosis Description: Gastro-esophageal reflux disease without esophagitis Diagnosis Description: Chest pain, unspecified Diagnosis Description: Shortness of breath Diagnosis Description: Palpitations Diagnosis Description: Other fatigue ProTime 10.4 9.1-11.9 SEC Normal Range : 9.1-11.9 INR .98 .90-1.20 Therapeutic Range: 2.0-3.0 Therapaeutic Range for heart valve replacement: 2.5-3.50 Schedule Confirmation Reviewed date:02/19/2025 09:02:27 AM Interpretation: Performing Lab: Notes/Report: Heart Cath Lt poss PTCA zzzHeart Cath Lt poss PTCA Reviewed date:03/09/2025 08:09:28 AM Interpretation: Performing Lab: Notes/Report: See Below For Report This report was dictated outside of the Gnodal system. Read See Below For Report Schedule Confirmation Reviewed date:02/19/2025 09:02:27 AM Interpretation: Performing Lab: Notes/Report: Heart Cath Lt poss PTCA Reason For Referral No Information Medications Medication SIG (Take, Route, Frequency, Duration) Notes Start Date End Date Status traZODone HCl 150 MG Tablet 1 tablet at bedtime Orally Once a day Active lamoTRIgine 100 MG Tablet Oral; Duration : 30 Days Active Vitamin D (Ergocalciferol) 1.25 MG (23612 UT) Capsule TAKE ONE CAPSULE BY MOUTH ONCE WEEKLY Oral; Duration: 28 Days Active Levothyroxine Sodium 75 MCG Capsule 1 tablet in the morning on an empty stomach Orally Once a day Active Gabapentin 300 MG Capsule 1 capsule Oral ly Three times a day Active Triamterene-HCTZ 37.5-25 MG Tablet 1 tablet in the morning Orally Once a day Active dilTIAZem HCl 60 MG Tablet 1 tablet Oral ly twice a day; Duration: 90 days Active Hydroxychloroquine Sulfate 2 00 MG Tablet as directed Orally twice a day Active Venlafaxine HCl ER 150 MG Capsule Extended Release 24 Hour 1 capsule with food Orally Once a day Active Omeprazole 40 MG Capsule Delayed Release 1 capsule 30 minutes before morning meal Orally Once a day Active ALPRAZolam 1 MG Tablet 1 tablet Orally T wice a day Active oxyCODONE-Acetaminophen 5-32 5 MG Tablet 1 tablet as needed Orally every 6 hrs Active Nitrofurantoin Monohyd Macro 100 MG Capsule TAKE ONE CAPSULE BY MOUTH TWICE DAILY Oral; Duration: 10 Days Active Furosemide 40 MG Tablet 1 tablet Orally 2x a day Active Potassium Chloride ER 20 MEQ Tablet Extended Release 1 tablet with food Orally 4x a day Active Metoprolol Tartrate 50 MG Tablet TAKE ONE TABLET BY MOUTH TWICE DAILY; MAY take extra EVERY DAY NEEDED; Duration: 30 Active Eliquis 5 MG Tablet as directed Orally 2xday Active Prasugrel HCl 10 MG Tablet Oral; Duratio n: 30 Days Active Immunizations Vaccine Route Administration Date Status Comme nts Influenza (whole), CPT 44636 Inactive Unknown 07/24/2018 Administered Social History Tobacco Use: Social History Observation Description Date Details (start date - stop date) Current Smoker NA - NA Social History Drugs/Alcohol: Social Info Question Answer Notes Caffeine Intake: 2-3 cups per day soda Tobacco Use: Social Info Question Answer Notes Tobacco Control (Standard) Tobacco use: Current smoker How many cigarettes a day do you smoke? 11-20 Additional Details Category Social Info Options Details Drugs/Alcohol: Do you smoke marijuana? De nies Do you drink alcohol? Denies Section Notes: Tobacco - 1ppd Problems Problem Type SNOMED Code ICD Code Onset Dates Problem Status W/U Status Risk Notes Problem Hypersomnia (92814970) Hypersomnia, unspecified (G47.10) Active confirmed Problem Sleep related hypoventilation (165543901) Sleep related hypoventilation in conditions classified elsewhere (G47.36) Active confirmed Problem Tobacco user (227767368) Cigarette nicotine dependence without complication (F17.210) Active confirmed Problem History of pulmonary embolus (646031370) History of pulmonary embolism (Z86.711) Active confirmed Problem Excessive daytime sleepiness - normal night sleep (232443565) Daytime sleepiness (R40.0) Active confirmed Problem Chronic dental infection (K04.7) Active confirmed Problem Long-term current use of drug therapy (735982495) Antiplatelet or antithrombotic long-term use (Z79.02) Active confirmed Problem Atherosclerotic heart disease of [place] coronary artery without angina pectoris (630383927673956) Arteriosclerosis of coronary artery (I25.10) Active confirmed Problem History of placement of stent for coronary artery disease (situation) (168634830) H/O heart artery stent (Z95.5) Active confirmed Problem Extreme obesity with alveolar hypoventilation (073896339) Obesity hypoventilation syndrome (E66.2) Active confirmed Problem Diverticular disease of colon (649689331) Diverticulosis large intestine w/o perforation or abscess w/o bleeding (K57.30) Active confirmed Problem Atrophic gastritis (13393270) Mild chronic gastritis (K29.50) Active confirmed Problem Gastroesophageal reflux disease (841584784) Chronic gastroesophageal reflux disease (K21.9) Active confirmed Problem Paroxysmal atrial fibrillation (515642295) Paroxysmal atrial fibrillation (I48.0) Active confirmed [id number] nomed Description:P aroxysmal atrial fibrillation Problem Fatigue (77130824) Other fatigue (R53.83) Active confirmed [id number] nomed Description:F atigue Problem Syncope and collapse (783582375) Syncope and collapse (R55) Active confirmed [id number] nomed Description:S yncope and collapse Vital Signs Heart Rate 74 /min 04/09/2025 Oximetry 99 % 04/09/2025 Blood pressure diastolic 78 mm Hg 04/09/2025 Weight-kg 133.36 kg 04/09/2025 Height 64 in 04/09/2025 Blood pressure systolic 130 mm Hg 04/09/2025 Weight 294 lbs 04/09/2025 BMI 50.46 kg/m2 04/09/2025 Procedures Procedure Date Ordered Date Performed Result Body Sit e Coronary Angio with Left Heart Cath 02/18/2025 02/18/2025 N/A Encounters Encounter Location Date Provider Diagnosis [facility] [address] [place] [address], [place] [address] 02/18/2025 [facility] Abnormal cardiovascu lar stress test R94.39 ; Paroxysmal atrial fibrillation I48.0 ; Chronic gastroesophageal reflux disease K21.9 ; Chest pain, unspecified R07.9 ; Shortness of breath R06.02 ; Palpitations R00.2 and Other fatigue R53.83 [facility] [address] [place] [address], [place] [address] 02/09/2025 [facility] [address] [place] [address], [place] [address] 03/04/2025 [facility] [address] [place] [address], [place] [address] 04/09/2025 [facility] Arteriosclerosis of coronary artery I25.10 ; Paroxysmal atrial fibrillation I48.0 ; H/O heart artery stent Z95.5 and Fatigue R53.83 [facility] [address] [place] [address] [place] [address] 04/23/2025 Lenin Walker [facility] [address] [place] [address], [place] [address] 03/09/2025 [facility] [address] [place] [address], [place] [address] 02/18/2025 [facility] [address] [place] [address], [place] [address] 02/11/2025 [facility] [address] [place] [address] 01/21/2025 [facility] Assessments Encounter Date Diagnosis (ICD Code) Assessment Notes Treatment Notes Treatment Clinical Notes Section Notes 04/09/2025 Paroxysmal atrial fibrillation (ICD-10 - I48.0) [id number] med Description:Par oxysmal atrial fibrillation 04/09/2025 Arteriosclerosis of coronary artery (ICD-10 - I25.10) 02/18/2025 Abnormal cardiovascular stress test (ICD-10 - R94.39) 04/09/2025 H/O heart artery stent (ICD-10 - Z95.5) 02/18/2025 Paroxysmal atrial fibrillation (ICD-10 - I48.0) [id number] med Description:Par oxysmal atrial fibrillation 04/09/2025 Fatigue (ICD-10 - R53.83) 02/18/2025 Chronic gastroesophageal reflux disease (ICD-10 - K21.9) 02/18/2025 Chest pain, unspecified (ICD-10 - R07.9) [id number] med Description:Michelle st pain 02/18/2025 Shortness of breath (ICD-10 - R06.02) [id number]- 02/18/2025 Palpitations (ICD-10 - R00.2) [id number]-Pnr med Description:Pal pitations 02/18/2025 Other fatigue (ICD-10 - R53.83) [id number]-Hsr med Description:Fat igue 02/18/2025 Other Medical Decisio n making process: Basis findings recommend we going proceed with heart catheterization via radial approach and possible risk include not limited to arterial thrombosis dissection hematoma consult renal failure CVA [place] answer we will get this procedure scheduled with his abnormal cardiac study continue follow closely with rheumatology family doctor for her rheumatoid arthritic type problems. 04/09/2025 Other Medical Decision-making process: I am going to start working on metoprolol we will cut it on 25 mg every afternoon for a week then we will stop it altogether increase the diltiazem to 60 twice a day for her A-fib and SVT. If she feels much better that will be a regimen be continued blood pressure gets high we have room to increase the diltiazem final hand she comes off this medicine does not feel any better at all and the redness get worse than we will go back to the standard regimen that she has been on. For the past send results evaluation look for to come back to clinic in 9 months or sooner if other issues are present she does have ischemic heart disease if she does talk about surgery she needs to be at least on prasugrel until mid-June for we can hold that for any duration for operation that is elective. Plan Of Treatment Pending Test Test Name Order Date Prothrombin Time 15428 02/18/2025 Basic Metabolic Panel (BMP) 19514 2024 Lipid Panel Reflex DLDL 77404, 33780 CBC Reflex Man Diff 92337, 69620 025 Electrocardiogram 12 Lead Tracing-97663 02/18/2025 Sleep Study with CPAP-19177 12/10/2023 Diagnostic Colonoscopy-67579 04/29/2024 EGD, Upper GI Diagnostic-95671 Electrocardiogram (EKG) - 37067 05/27/20 Next Appt Details Provider Name:Dianne Qiana acosta, 08/27/2025 01:00:00 PM, [address], [address], Insurance Providers Payer Name Payer Address Payer Phone Subscriber Number Group Number Insured Name Patient Relationship to Insured Coverage Start Date Coverage End Date [place] Medicaid [address] [place] [address] [id number] Mildred Rojas Self - patient is the insured Medications Administered Medication Instructions Date of Administration Dosage Notes BUPivacaine HCl 12/29/2022 1 mL inferior alveolar nerve Medical (General) History Medical History History ICD Code Hypercholesterolemia Hypertensive disorder Morbid obesity Thyroid structure Tobacco user Heart Disease Bladder Infections Hemorrhoids Bronchitis Pneumonia bladder infections bronchitis anxiety GERD hyperparathyroidism irritable bowel syndrome sleep apnea Surgical History Surgery Date(Month/Year) Hysterectomy Fatty Tumor Cholecystectomy 05/2008 RAH+right SO+left salpingectomy+BETTINA 03/10 19 IMPRESSION: 1. Successful st enting of the mid right coronary and the distal right coronary with Synergy drug-eluting stents. 2. Mild to moderate LAD and mild diagonal disease. 3. Normal left main and circumflex vessel. 03/04/2025 Hospitalization History Reason Date(Month/Year) ED - Physician Chief Comp laint: Pain all over. Feels like she cannot move her joints. Nursing Chief Complaint: 85sitting at kitchen table sudden onset of pain to bilateral lobes of chest, shoulders, posterior neck. also has pain to L hip/leg. can barely move anything. NAUSEA, chronic pain unmanaged through pain clinic. took OXY 5mg 1.5 hours ago, NO RELIEF 03.14- 03.15.2025 ER- PULM embolism - pine
--- OUTSIDE RECORDS SUMMARY | 2025-08-23 14:23 | XMS_ITS | Clinical Summary ---
Author Organization [facility] Address [address] [place] [address] Phone Care Team Providers Care Extrusion Die Corrector Name Role Phone Unavailable Primary Care Provider Unavailabl e Social History Tobacco Use Types Packs/Day Years Used Date Smoking Tobacco: Never Assessed Comments Unknown Sex and Gender Information Value Date Recorded Sex Assigned at Not on file Legal Sex Female 11:49 AM CDT Gender Identity Not on file Sexual Orientation Not on file Last Filed Vital Signs Vital Sign Reading Time Taken Comments Blood Pressure - - Pulse - - Temperature - - Respiratory Rate - - Oxygen Saturation - - Inhaled Oxygen Concentration - - Weight 125.2 kg (276 lb) 08/12/2024 12:59 PM CDT Height 165.1 cm (5' 5 ) 08/12/2024 12:59 PM CDT Body Mass Index 45.93 08/12/2024 12:59 PM CDT Plan of Treatment Health Maintenance Due Date Last Done Comments Colonoscopy Every 6 Months 1975 Colorectal Cancer Screening Annual FOBT/FIT Test 06/15 Colorectal Cancer Screening Cologuard 1975 Colorectal Cancer Screening Flex Sigmoidoscopy 975 Annual Depression Screening 1986 Annual Physical 1993 Hepatitis C Antibody Screen 1993 DTap/Tdap/Td Vaccines (1 - Tdap) 1994 Mammogram 2015 Colorectal CA Screen 10 Year Colonoscopy 2020 Colorectal Cancer Screening 2020 Pneumococcal Vaccine Age 50+ (1 of 1 - PCV) 2025 Zoster Vaccine (Shingles) (1 of 2) 2025 Flu Vaccine (#1) 06/22/2025 Influenza Vaccine 06/22/2025 Insurance [place]ICAID [place]
--- NOTE | 2025-08-23 14:24 | ECG_ITS ---
[facility] Date: 2025-08-23 Pat Name: Mildred Rojas Department: Room: Gender: Female Stem Maker: : 1975 Requested By: Rolly Campoverde Order Number: [id number] Jeffrey MD: Roby Berumen M.D. Measurements Intervals [place] Rate: 156 P: 0 PA: 0 QRS: 61 QRSD: 112 T: -67 QT: 281 QTc: 453 Interpretive Statements SUPRAVENTRICULAR TACHYCARDIA MODERATE INTRAVENTRICULAR CONDUCTION DELAY [110+ ms QRS DURATION] ST DEVIATION AND MODERATE T-WAVE ABNORMALITY, CONSIDER ANTEROLATERAL ISCHEMIA [-0.1+ mV T-WAVE IN V3-V6] ST DEVIATION AND MODERATE T-WAVE ABNORMALITY, CONSIDER ISCHEMIA [-0.1+ mV T-WAVE IN II/aVF] Compared to ECG 10/06/2023 21:58:29 HEART RATE HAS INCREASED Electronically Signed On 08-23-2025 15:29:21 ADJUNCT TEACHER by Roby Berumen M.D. [id number]
--- NOTE | 2025-08-23 14:26 | W.ED.GENADLT ---
HPI - General Adult General: Chief complaint: Arrhythmia/Palpitations Stated complaint: sob Time Seen by Provider: 08/23/25 14:19 Source: patient and EMS Mode of arrival: EMS Limitations: no limitations History of Present Illness: 50-year-old female has a history of SVT states that starting today 2 hours ago started having palpitations heart rate increased causing her like her heart was racing and having pain. States this is typically feels like when she has SVT she has mild dyspnea as well. Denies any cough denies any fevers. Associated symptoms: Reports chest pain and palpitations Related Data Home Medications ?Medication ?Instructions ?Recorded ?Confirmed alprazolam 1 mg tablet 1 mg PO TID PRN Anxiety 04/20/23 08/23/25 aspirin 81 mg tablet,delayed 81 mg PO DAILY 04/20/23 08/23/25 release furosemide 40 mg tablet 80 mg PO DAILY 04/20/23 08/23/25 metoprolol tartrate 50 mg tablet 50 mg PO BID 04/20/23 08/23/25 omeprazole 40 mg capsule,delayed 40 mg PO DAILY 04/20/23 08/23/25 release potassium chloride 20 mEq 20 meq PO QID 04/20/23 08/23/25 tablet,extended release(part/cryst) triamterene 37.5 1 tab PO DAILY 04/20/23 08/23/25 mg-hydrochlorothiazide 25 mg tablet venlafaxine 100 mg tablet 100 mg PO BID 04/20/23 08/23/25 albuterol sulfate 2.5 mg/3 mL 2.5 mg inhalation QID PRN 08/23/25 08/23/25 (0.083 %) solution for nebulization Shortness Of Breath apixaban 5 mg tablet (Eliquis) 5 mg PO BID 08/23/25 08/23/25 diltiazem HCl 60 mg tablet 60 mg PO BID 08/23/25 08/23/25 ergocalciferol (vitamin D2) 1,250 50,000 unit PO Q7D 08/23/25 08/23/25 mcg (50,000 unit) capsule hydroxychloroquine 200 mg tablet 200 mg PO BID 08/23/25 08/23/25 lamotrigine 100 mg tablet 100 mg PO BID 08/23/25 08/23/25 levothyroxine 88 mcg tablet 88 mcg PO QAM 08/23/25 08/23/25 nitroglycerin 0.4 mg sublingual See Rx Instructions .Route .COMPLEX 08/23/25 08/23/25 tablet pilocarpine HCl 5 mg tablet 5 mg PO TID PRN Dry Mouth 08/23/25 08/23/25 prasugrel HCl 10 mg tablet 10 mg PO DAILY 08/23/25 08/23/25 pregabalin 50 mg capsule 50 mg PO BID 08/23/25 08/23/25 Allergies Allergy/AdvReac Type Severity Reaction Status Date / Time cephalexin (From Keflex) Allergy ADR-Faintin Verified 09/06/23 12:48 g morphine Allergy ALGY-Redness Verified 10/06/23 23:10 of Skin Sulfa (Sulfonamide Allergy ADR-Agitate Verified 09/06/23 12:48 Antibiotics) d sulfamethoxazole (From Allergy ADR-Faintin Verified 09/06/23 12:48 Bactrim) g trimethoprim (From Bactrim) Allergy ADR-Faintin Verified 09/06/23 12:48 g Review of Systems Card: Reports: chest pain and palpitations [facility] ED PFSH: Social History Smoking and tobacco/nicotine status: current every day tobacco/nicotine user Physical Exam Const: COMMON NORMALS: no acute distress, patient oriented x3 and healthy appearing HENMT: COMMON NORMALS: normocephalic and atraumatic HEAD & SCALP: normocephalic and atraumatic Neck/C-Spine: COMMON NORMALS: full ROM and supple Chest: COMMONS NORMALS: normal inspection of the chest Resp: COMMON NORMALS: normal respiratory effort, No retractions, No use of accessory muscles and clear to auscultation bilaterally AUSCULTATION: clear to auscultation bilaterally Cardio: COMMON NORMALS: No murmurs present (Cardio) RATE: tachycardic Extremity: COMMON NORMALS: normal to inspection and full ROM Neuro: COMMON NORMALS: patient oriented x3, moves all extremities and no focal motor deficits Psych: COMMON NORMALS: mental status grossly normal, Normal thought process present and cooperative THOUGHT PROCESS: Normal thought process present Skin: COMMON NORMALS: no rashes or lesions noted and no wounds GENERAL SKIN EXAM: no rashes or lesions noted Course Vital Signs: Vital signs: Vital Signs Temperature 99.2 F 08/23/25 14:36 Pulse Rate 157 H 08/23/25 14:19 Respiratory Rate 18 08/23/25 14:19 Blood Pressure 137/96 08/23/25 14:19 Pulse Oximetry 96 08/23/25 14:19 Oxygen Delivery Me thod Room Air 08/23/25 14:19 MDM - General Adult Medical Decision Making Patient presents here with SVT. Patient had converted herself here before she did receive adenosine. Did observe her afterwards and is continue to be in normal sinus rhythm. Electrolytes CBC are normal. Chest x-ray showed no acute findings on my impression. Her symptoms have improved after converting SVT. She has no signs of ACS or pulmonary emboli. She is stable for discharge at this time I did go over all the findings with her she understands agrees to plan she is return if worsening Medical Records I reviewed the patient's medical records. Lab Data I reviewed the patient's lab results. 08/23/25 14:36 08/23/25 14:36 Radiology Impressions Chest X-Ray 08/23/25 14:23 IMPRESSION: 1. Mild increased density in the lower lungs more prominent on the left. Some may represent overlying soft tissue but this suspicious suspicious for edema. 2. Mild cardiomegaly. 3. Degenerative changes thoracic spine and AC joints. Laboratory Results WBC 10.72 10^3/uL (3.29-11.43) 08/23/25 14:36 RBC 4.85 10^6/uL (3.85-5.65) 08/23/25 14:36 Hgb 12.30 g/dL (11.27-16.99) 08/23/25 14:36 Hct 40.2 % (36-47) 08/23/25 14:36 MCV 82.9 fl (85-98) L 08/23/25 14:36 MCH 25.4 pg (27-33) L 08/23/25 14:36 MCHC 30.6 g/dL (30-55) 08/23/25 14:36 RDW 16.6 % (12.1-15.1) H 08/23/25 14:36 Plt Count 365 10^3/cmm (157-399) 08/23/25 14:36 MPV 10.9 fL (7.4-10.4) H 08/23/25 14:36 Neut % (Auto) 68.8 % 08/23/25 14:36 Lymph % (Auto) 23.3 % 08/23/25 14:36 [place] % (Auto) 5.2 % 08/23/25 14:36 Eos % (Auto) 1.9 % 08/23/25 14:36 Baso % (Auto) 0.6 % 08/23/25 14:36 Neut # (Auto) 7.38 10^3/uL (1.8-7.7) 08/23/25 14:36 Lymph # (Auto) 2.5 10^3/uL (0.8-4.8) 08/23/25 14:36 [place] # (Auto) 0.6 10^3/uL (0.2-0.9) 08/23/25 14:36 Eos # (Auto) 0.2 10^3/uL (0.0-0.8) 08/23/25 14:36 Baso # (Auto) 0.1 10^3/uL (0.0-0.1) 08/23/25 14:36 Nucleated RBC % (auto) 0 % 08/23/25 14:36 Nucleated RBCs # 0.0 /100WBC 08/23/25 14:36 PT 14.40 SECONDS (12.1-14.9) 08/23/25 14:36 INR 1.05 (0.8-1.2) 08/23/25 14:36 Sodium 131 mmol/L (136-145) L 08/23/25 14:36 Potassium 3.8 mmol/L (3.5-5.1) 08/23/25 14:36 Chloride 94 mmol/L (98-107) L 08/23/25 14:36 Carbon Dioxide 22 mmol/L (22-29) 08/23/25 14:36 Anion Gap 18.8 (5-19) 08/23/25 14:36 BUN 7 mg/dL (6-20) 08/23/25 14:36 Creatinine 1.0 mg/dL (0.5-0.9) H 08/23/25 14:36 GFR Calculation 58.7 mL/min (90-130) L 08/23/25 14:36 Glucose 185 mg/dL (65-115) H 08/23/25 14:36 Calculated Osmolality 275 mOsm/kg (285-295) L 08/23/25 14:36 Calcium 9.1 mg/dL (8.5-10.5) 08/23/25 14:36 Total Bilirubin 0.3 mg/dL (0.15-1.2) 08/23/25 14:36 AST 23 U/L (0-32) 08/23/25 14:36 ALT 19 U/L (0-33) 08/23/25 14:36 Alkaline Phosphatase 92 U/L (35-105) 08/23/25 14:36 Total Protein 7.3 g/dL (6.6-8.7) 08/23/25 14:36 Albumin 3.8 g/dL (3.5-5.2) 08/23/25 14:36 Globulin 3.5 g/dL (1.3-4.6) 08/23/25 14:36 All radiology interpretation(s) finalized by discharge EKG Data EKG 1: I personally reviewed and interpreted this EKG as follows: EKG interpretation date: 08/23/25 EKG interpretation time: 14:24 Interpretation: svt hr [address] elevation qrs 112 qtc 369 Computer generated interpretation: Chest X-Ray 08/23/25 14:23 IMPRESSION: 1. Mild increased density in the lower lungs more prominent on the left. Some may represent overlying soft tissue but this suspicious suspicious for edema. 2. Mild cardiomegaly. 3. Degenerative changes thoracic spine and AC joints. EKG 2: I personally reviewed and interpreted this EKG as follows: EKG interpretation date: 08/23/25 EKG interpretation time: 14:33 Interpretation: nsr hr [address] elevation qrs 114 qtc 409 Computer generated interpretation: Chest X-Ray 08/23/25 14:23 IMPRESSION: 1. Mild increased density in the lower lungs more prominent on the left. Some may represent overlying soft tissue but this suspicious suspicious for edema. 2. Mild cardiomegaly. 3. Degenerative changes thoracic spine and AC joints. Discharge Plan Discharge Patient Disposition: Home Clinical Impression: Supraventricular tachycardia Condition: Stable Prescriptions: No Action furosemide 40 mg tablet 80 mg PO DAILY alprazolam 1 mg tablet 1 mg PO TID PRN (Reason: Anxiety) omeprazole 40 mg capsule,delayed release(DR/EC) 40 mg PO DAILY venlafaxine 100 mg tablet 100 mg PO BID potassium chloride 20 mEq tablet,ER particles/crystals 20 meq PO QID metoprolol tartrate 50 mg tablet 50 mg PO BID triamterene-hydrochlorothiazid 37.5-25 mg tablet 1 tab PO DAILY aspirin [Aspir-81] 81 mg Tablet,Delayed Release (Dr/Ec) 81 mg PO DAILY pilocarpine HCl 5 mg tablet 5 mg PO TID PRN (Reason: Dry Mouth) albuterol sulfate 2.5 mg /3 mL (0.083 %) solution for nebulization 2.5 mg inhalation QID PRN (Reason: Shortness Of Breath) levothyroxine 88 mcg tablet 88 mcg PO QAM nitroglycerin 0.4 mg tablet, sublingual See Rx Instructions .ROUTE .COMPLEX Rx Instructions: DISSOLVE 1 TABLET UNDER THE TONGUE EVERY 5 MINUTES NEEDED FOR CHEST PAIN. DO NOT EXCEED A TOTAL OF 3 DOSES IN 15 MINUTES ergocalciferol (vitamin D2) 1,250 mcg (50,000 unit) capsule 50,000 unit PO Q7D Rx Instructions: Sunday hydroxychloroquine 200 mg tablet 200 mg PO BID diltiazem HCl 60 mg tablet 60 mg PO BID lamotrigine 100 mg tablet 100 mg PO BID pregabalin 50 mg capsule 50 mg PO BID prasugrel HCl 10 mg tablet 10 mg PO DAILY Eliquis 5 mg tablet 5 mg PO BID Discharge Orders: Discharge ED (Routine); Ordered 08/23/25 Ordered By: Rolly Campoverde Referrals: Aaron Liao MD [Primary Care Provider, Internal Medicine] - 4-7 days Discharge Diet: Advance as tolerated Discharge Activity: Resume usual activity Patient Instructions: Supraventricular Tachycardia (ED) Print Language: Sri Lankan Coding Level of Care Code ED Concept Artist for Timothy Cueto
[2025-08-23 14:36] VITALS: TEMP 37.3
[2025-08-23 14:43] LABS: Hematocrit 40.2 % (36-47); Hemoglobin 12.30 g/dL (11.27-16.99); Mean Corpuscular HGB Conc 30.6 g/dL (30-55); Mean Corpuscular Hemoglobin 25.4 pg (27-33); Mean Corpuscular Volume 82.9 fl (85-98); Nucleated Red Blood Cells % 0 %; Platelet Count 365 10^3/cmm (157-399); Red Blood Count 4.85 10^6/uL (3.85-5.65); White Blood Count 10.72 10^3/uL (3.29-11.43)
[2025-08-23 14:55] LABS: INR 1.05 (0.8-1.2); Prothrombin Time 14.40 SECONDS (12.1-14.9)
[2025-08-23 14:59] LABS: Alanine Aminotransferase 19 U/L (0-33); Albumin Level 3.8 g/dL (3.5-5.2); Alkaline Phosphatase 92 U/L (35-105); Blood Urea Nitrogen 7 mg/dL (6-20); Calcium 9.1 mg/dL (8.5-10.5); Carbon Dioxide 22 mmol/L (22-29); Chloride 94 mmol/L (98-107); Creatinine Clr Calc Pharmacy 95.6369; Globulin 3.5 g/dL (1.3-4.6); Glucose 185 mg/dL (65-115); Osmolality Calculated 275 mOsm/kg (285-295); Sodium 131 mmol/L (136-145); Total Protein 7.3 g/dL (6.6-8.7)
[2025-08-23 15:01] LABS: Anion Gap 18.8 (5-19); Aspartate Amino Transferase 23 U/L (0-32); Potassium 3.8 mmol/L (3.5-5.1)
[2025-08-23] MEDS: LORazepam 2 mg/mL INJ 1 mL 0.5 MG IVP (15:19)
--- NOTE | 2025-08-23 15:38 | PC.PHAR ---
Pt up for discharge but has so many changes made to her med list recently that we went over all medications. Pt has 2 blood thinners currently and asa 81mg is on hold.
== END 2025-08-23 16:33 | disposition home or self-care (01) ==
PROVIDERS: Emergency Provider Emergency Medicine; PCP Internal Medicine
DX: I47.10 Supraventricular tachycardia, unspecified (principal); Z79.82 Long term (current) use of aspirin; Z79.01 Long term (current) use of anticoagulants; Z72.0 Tobacco use
CPT/HCPCS: 36415; 71045; 80053; 85025; 85610; 93005; 96374; 99285; J2060

== ENCOUNTER 2025-09-04 16:42 | Inpatient (IN) | payer MEDICAID, SELFPAY ==
--- OUTSIDE RECORDS SUMMARY | 2025-01-21 02:15 | XMS_ITS ---
Author Organization [facility] Address [address] [place] [address] Care Team Providers Care Dragline Operator Helper Name Role Phone Aaron Liao MD Primary Care Provider Alejandro Carpenter [phone] Encounters Encounter Location Date Provider Diagnosis [facility] [address] [place] [phone] 01/21/2025 Alejandro Sales Plan Of Treatment Next Appt Details Provider Name:Alejandro Sales , 01/04/2026 01:00:00 PM, [address] [place] [address], [phone], Progress Notes * Mildred ROJAS ADOB:[birth year] (50 yo F)Acc No.[id number]:01/21/2025 Patient: Vilma Mildred liu Provider: Olinda Sales MD :1975 A ge:49 Y S ex:Female Date:01/21/2025 Address:[facility], [id number] Pcp:Aaron Liao MD Billing Information: * Procedure Codes: * Electronic signature of Ricco Sales MD on 09/05/2025 at 07:05 AM SKIMMER Sign off status: Pending * Provider: Olinda Sales MD Date: 0 01/21/2025 Generated for Valdemar estrella/Rolan/eTransmitting on: 11/05/2024 07:05 AM SKIMMER
--- OUTSIDE RECORDS SUMMARY | 2025-02-03 07:00 | XMS_ITS ---
Author Organization [facility] Address [address] [place] [address] Care Team Providers Care Steersman Name Role Phone Aaron Liao MD Primary Care Provider Alejandro Carpenter [phone] Encounters Encounter Location Date Provider Diagnosis [facility] [address] [place] [phone] 02/03/2025 Alejandro Sales Plan Of Treatment Next Appt Details Provider Name:Alejandro Sales , 01/04/2026 01:00:00 PM, [address] [place] [address], [place], [phone], Progress Notes * Mildred ROJAS ADOB:[birth year] (50 yo F)Acc No.[id number]:02/03/2025 Patient: Vilma Mildred liu Provider: Olinda Sales MD :1975 A ge:49 Y S ex:Female Date:02/03/2025 Address:[facility] [facility], [id number] Pcp:Aaron Liao MD * Electronic signature of Ricco Sales MD on 09/05/2025 at 07:07 AM FORECLOSURE HOME INSPECTOR Sign off status: Pending * Provider: Olinda Sales MD Date: 0 02/03/2025 Generated for Estelai delores/Brittanyg/eTransmitting on: 1 11/05/2024 07:07 AM FORECLOSURE HOME INSPECTOR
--- OUTSIDE RECORDS SUMMARY | 2025-02-09 02:15 | XMS_ITS ---
Author Organization [facility] Address [address] [place] [address] Care Team Providers Care Cooler Deliverer Name Role Phone Aaron Liao MD Primary Care Provider Alejandro Carpenter [phone] Encounters Encounter Location Date Provider Diagnosis [facility] [address] [place] [phone] 02/09/2025 Alejandro Sales Plan Of Treatment Next Appt Details Provider Name:Alejandro Sales , 01/04/2026 01:00:00 PM, [address] [place] [address], [phone], Progress Notes * Mildred ROJAS ADOB:[birth year] (50 yo F)Acc No.[id number]:02/09/2025 Patient: Vilma Mildred liu Provider: Olinda Sales MD :1975 A ge:49 Y S ex:Female Date:02/09/2025 Address:[address] [facility], [id number] Pcp:Aaron Liao MD Check In:07:48 AM REGULATORY COMPLIANCE ENGINEER Billing Information: * Procedure Codes: * Electronic signature of Ricco Sales MD on 09/05/2025 at 07:08 AM REGULATORY COMPLIANCE ENGINEER Sign off status: Pending * Provider: Olinda Sales MD Date: 0 02/09/2025 Generated for Valdemar estrella/Rolan/eTransmitting on: 11/05/2024 07:08 AM REGULATORY COMPLIANCE ENGINEER
--- OUTSIDE RECORDS SUMMARY | 2025-03-03 03:30 | XMS_ITS ---
Author Organization [facility] Address [address] [place] [address] Care Team Providers Care Butadiene Converter Operator Name Role Phone Aaron Liao MD Primary Care Provider Unavail Alejandro Candelaria Unavailable [phone] Dianne Park Unavailable [phone] REASON FOR VISIT 4 wks s/p 03/04/25 angio/lg Encounters Encounter Location Date Provider Diagnosis [facility] [address] [place] [phone] 03/03/2025 Dianne Park Plan Of Treatment Next Appt Details Provider Name:Dylon Camp , 01/04/2026 01:00:00 PM, [address] [place] [address], [place], [phone], Progress Notes * Mildred ROJAS ADOB:[birth year] (50 yo F)Acc No.[id number]:03/03/2025 Patient: Vilma Mildred liu Provider: Kevin Park NP :1975 A ge:49 Y S ex:Female Date:03/03/2025 Address:[address] [place] [address] [facility], [id number] Pcp:Aaron Liao MD Subjective: * Chief Complaints: * 4 wks s/p 03/04/25 angio/lg * Electronic signature of Dianne Park , MSN, SUPERVISOR PIPELINE MAINTENANCE-C on 09/05/2025 at 07:07 AM CHILD WELFARE SPECIALIST Sign off status: Pending * Provider: Kevin Park NP Date: 0 03/03/2025 Generated for Valdemar estrella/Rolan/Yolanda on: 1 11/05/2024 07:07 AM CHILD WELFARE SPECIALIST
--- OUTSIDE RECORDS SUMMARY | 2025-03-04 04:00 | XMS_ITS ---
Author Organization [facility] Address [address] [place] [address] Care Team Providers Care Ribbon Winder Name Role Phone Aaron Liao MD Primary Care Provider Alejandro Carpenter [phone] REASON FOR VISIT Right rad approach [facility] possible ptca 03/04/2025 @ 10 am, check in at 8 am//gs Encounters Encounter Location Date Provider Diagnosis [facility] [address] [place] [address], [place] [address] 03/04/2025 Alejandro Sales Plan Of Treatment Next Appt Details Provider Name:Alejandro Sales , 01/04/2026 01:00:00 PM, [address] [place] [address], [place], [address], Progress Notes * Mildred ROJAS ADOB:[birth year] (50 yo F)Acc No.[id number]:03/04/2025 [place] Patient: Vilma Mildred liu Provider: Olinda Sales MD :1975 A ge:49 Y S ex:Female Date:03/04/2025 Address:[address] [place] [facility] [place], [id number] Pcp:Aaron Liao MD Subjective: * Chief Complaints: * R ight rad approach [facility] possible ptca 03/04/2025 @ 10 am, check in at 8 am//gs Billing Information: * Procedure Codes: * Electronic signature of Ricco Sales MD on 09/05/2025 at 07:06 AM PROTOTYPE CARPENTER Sign off status: Pending * Provider: Olinda Sales MD Date: 0 03/04/2025 Generated for Valdemar estrella/Rolan/Yolanda on: 1 11/05/2024 07:06 AM PROTOTYPE CARPENTER
--- OUTSIDE RECORDS SUMMARY | 2025-05-07 04:30 | XMS_ITS ---
Author Organization [facility] Address [address] [place] [address] Care Team Providers Care Career Law Clerk Name Role Phone Aaron Liao MD Primary Care Provider Unavail Alejandro Candelaria Unavailable [phone] Lenin Walker Unavailable [phone] REASON FOR VISIT [phone] Encounters Encounter Location Date Provider Diagnosis Count Includes [facility] [address] [place] [address] [place] [address] 05/07/2025 Lenin Walker Plan Of Treatment Next Appt Details Provider Name:Alejandro Sales , 01/04/2026 01:00:00 PM, [address] [place] [address], [phone], Progress Notes * Mildred ROJAS ADOB:[birth year] (50 yo F)Acc No.[id number]:05/07/2025 Progress Notes Patient: Vilma liu Mildred Edgardo Provider: Bryce Walker MD :1975 A ge:49 Y S ex:Female Date:05/07/2025 Address:[address] [place] [facility], [id number] Pcp:Aaron Liao MD Subjective: * Chief Complaints: * [phone] Care Plan Details* * Electronic signature of Estela Walker MD on 09/05/2025 at 07:05 AM SALES CONSULTANT Sign off status: Pending * Provider: Bryce Walker MD Date: 0 05/07/2025 Generated for Valdemar estrella/Rolan/Yolanda on: 1 11/05/2024 07:05 AM SALES CONSULTANT
--- OUTSIDE RECORDS SUMMARY | 2025-08-31 01:45 | XMS_ITS ---
Author Organization [facility] Address [address] [place] [address] Care Team Providers Care Patented Hogshead Assembler Name Role Phone Aaron Liao MD Primary Care Provider Alejandro Carpenter [phone] Encounters Encounter Location Date Provider Diagnosis [facility] [address] [place] [phone] 08/31/2025 Alejandro Salse Plan Of Treatment Next Appt Details Provider Name:Alejandro Sales , 01/04/2026 01:00:00 PM, [address] [place] [address], [phone], Progress Notes * Mildred ROJAS ADOB:[birth year] (50 yo F)Acc No.[id number]:08/31/2025 Patient: Vilma bartholomewMildred ontiveros Provider: Olinda Sales MD :1975 A ge:50 Y S ex:Female Date:08/31/2025 Address:[facility], [id number] Pcp:Aaron Liao MD Check In:07:44 AM RADIO DISPATCHER Billing Information: * Procedure Codes: * Electronic signature of Ricco Sales MD on 09/05/2025 at 07:05 AM RADIO DISPATCHER Sign off status: Pending * Provider: Olinda Sales MD Date: 10/31/2024 Generated for Valdemar estrella/Rolan/eTransmitting on: 11/05/2024 07:05 AM RADIO DISPATCHER
[2025-09-04] VITALS (48 sets, daily range): BP systolic 93–154; BP diastolic 45–102; PULSE 62–188; RESP 9–27; TEMP 36.7–37.8; O2SAT 78–99; BMI 49.9; BMI 50.5
--- NOTE | 2025-09-04 16:47 | XRR_ITS ---
PROCEDURE INFORMATION: Exam: XR Chest Exam date and time: 09/04/2025 5:43 PM Age: 50 years old Clinical indication: Cough; Prior surgery; Surgery date: 6+ months; Surgery type: Cardiac stents; Additional info: Svt; Chest pain TECHNIQUE: Imaging protocol: Radiologic exam of the chest. Views: 1 view. COMPARISON: CR (CHEST, ) 08/23/2025 2:42 PM FINDINGS: Lungs: Unremarkable. Stable granuloma right upper lobe. No consolidation. Overlying devices. Pleural spaces: Unremarkable. No pleural effusion. No pneumothorax. Heart/Mediastinum: Mild stable cardiomegaly without overt failure. Bones/joints: Mild degenerative changes thoracic spine. Upper abdomen: Unremarkable. XR/XR chest 1V portable [id number] IMPRESSION: 1. Mild stable cardiomegaly. 2. No acute process.
--- NOTE | 2025-09-04 16:47 | ECG_ITS ---
[facility] Test Date: 2025-09-04 Pat Name: Mildred Rojas Department: Room: Gender: Female Employment Law Specialist: : 1975 Requested By: Chandana Brown Order Number: [id number] Jeffrey MD: Emil West M.D. Measurements Intervals [place] Rate: 191 P: 0 [place]: 0 QRS: 73 QRSD: 102 T: -69 QT: 240 QTc: 428 Interpretive Statements SUPRAVENTRICULAR TACHYCARDIA ST DEVIATION AND MODERATE T-WAVE ABNORMALITY, CONSIDER INFERIOR ISCHEMIA [-0.1+ mV T-WAVE IN II/aVF] Compared to ECG 08/23/2025 14:24:56 Intraventricular conduction delay no longer present T-wave abnormality still present Possible ischemia still present Electronically Signed On 09-04-2025 19:41:54 BULK SEALER OPERATOR by Emil West M.D. [id number] [id number]
[2025-09-04] MEDS: adenosine 3 mg/mL SDV 2mL 6 MG IVP (16:57)
[2025-09-04] MEDS: adenosine 3 mg/mL SDV 2mL 12 MG IVP (16:59)
[2025-09-04] MEDS: ketamine 100 mg/mL Inj 5 mL 200 MG IVP (17:06)
[2025-09-04 17:12] LABS: Hematocrit 36.6 % (36-47); Hemoglobin 11.30 g/dL (11.27-16.99); Mean Corpuscular HGB Conc 30.9 g/dL (30-55); Mean Corpuscular Hemoglobin 25.6 pg (27-33); Mean Corpuscular Volume 83.0 fl (85-98); Nucleated Red Blood Cells % 0 %; Platelet Count 373 10^3/cmm (157-399); Red Blood Count 4.41 10^6/uL (3.85-5.65); White Blood Count 10.71 10^3/uL (3.29-11.43)
[2025-09-04] MEDS: ondansetron 2 mg/ML SDV 2 mL 4 MG IVP (17:12)
[2025-09-04 17:28] LABS: Alanine Aminotransferase 19 U/L (0-33); Albumin Level 4.1 g/dL (3.5-5.2); Alkaline Phosphatase 95 U/L (35-105); Anion Gap 18.7 (5-19); Aspartate Amino Transferase 18 U/L (0-32); Blood Urea Nitrogen 6 mg/dL (6-20); Calcium 9.2 mg/dL (8.5-10.5); Carbon Dioxide 26 mmol/L (22-29); Chloride 95 mmol/L (98-107); Globulin 2.8 g/dL (1.3-4.6); Glucose 174 mg/dL (65-115); Magnesium 1.8 mg/dL (1.7-2.3); Osmolality Calculated 284 mOsm/kg (285-295); Potassium 3.7 mmol/L (3.5-5.1); Sodium 136 mmol/L (136-145); Total Protein 6.9 g/dL (6.6-8.7)
--- NOTE | 2025-09-04 17:28 | ECG_ITS ---
[facility] Date: 2025-09[facility]04 Pat Name: Mildred Rojas Department: Room: Gender: Female Research Rn Spec: : 1975 Requested By: Chandana Brown Order Number: [id number] Jeffrey MD: Emil West M.D. Measurements Intervals [place] Rate: 97 P: 44 [place]: 137 QRS: 22 QRSD: 113 T: -45 QT: 376 QTc: 479 Interpretive Statements SINUS RHYTHM INFERIOR MYOCARDIAL INFARCTION , OF INDETERMINATE AGE [40+ ms Q WAVE AND/OR ST/T ABNORMALITY IN II/aVF] Compared to ECG 09/04/2025 16:47:29 Myocardial infarct finding now present Supraventricular tachycardia no longer present T-wave abnormality no longer present Possible ischemia no longer present Electronically Signed On 09-04-2025 19:43:18 RETAIL BRAND AMBASSADOR by Emil West M.D. [id number] [id number]
[2025-09-04 17:29] LABS: Troponin(5th) Baseline 82 ng/L (0-10)
--- NOTE | 2025-09-04 17:39 | W.ED.ARRPALP ---
HPI - Arrhythmia/Palpitations General: Chief Complaint: Arrhythmia/Palpitations Stated Complaint: svt Time Seen by Provider: 09/04/25 16:43 History of Present Illness: A 50-year-old female who presents to the emergency room in SVT she was seen 1 week ago with the same presentation but spontaneously resolved. She is on diltiazem and metoprolol. She denies missing any medication she does have a little bit of a low-grade fever she has been sick with a cough cold like symptoms recently. Related Data Home Medications ?Medication ?Instructions ?Recorded ?Confirmed alprazolam 1 mg tablet 1 mg PO TID PRN Anxiety 04/20/23 09/04/25 aspirin 81 mg tablet,delayed 81 mg PO DAILY 04/20/23 09/05/25 release furosemide 40 mg tablet 80 mg PO DAILY 04/20/23 09/05/25 metoprolol tartrate 50 mg tablet 50 mg PO BID 04/20/23 09/05/25 omeprazole 40 mg capsule,delayed 40 mg PO DAILY 04/20/23 09/05/25 release potassium chloride 20 mEq 20 meq PO QID 04/20/23 09/05/25 tablet,extended release(part/cryst) triamterene 37.5 1 tab PO DAILY 04/20/23 09/05/25 mg-hydrochlorothiazide 25 mg tablet venlafaxine 100 mg tablet 100 mg PO BID 04/20/23 09/05/25 albuterol sulfate 2.5 mg/3 mL 2.5 mg inhalation QID PRN 08/23/25 09/04/25 (0.083 %) solution for nebulization Shortness Of Breath apixaban 5 mg tablet (Eliquis) 5 mg PO BID 08/23/25 09/04/25 ergocalciferol (vitamin D2) 1,250 50,000 unit PO Q7D 08/23/25 09/05/25 mcg (50,000 unit) capsule hydroxychloroquine 200 mg tablet 200 mg PO BID 08/23/25 09/05/25 lamotrigine 100 mg tablet 100 mg PO BID 08/23/25 09/05/25 levothyroxine 88 mcg tablet 88 mcg PO QAM 08/23/25 09/05/25 nitroglycerin 0.4 mg sublingual See Rx Instructions .Route 08/23/25 09/05/25 tablet .COMPLEX PRN chest pain pilocarpine HCl 5 mg tablet 5 mg PO TID PRN Dry Mouth 08/23/25 09/05/25 prasugrel HCl 10 mg tablet 10 mg PO DAILY 08/23/25 09/05/25 Held on 09/06/25. Instructions: Resume on 09/14/25. Resume at the direction of your primary care provider pregabalin 50 mg capsule 50 mg PO BID 08/23/25 09/05/25 Previous Rx's ?Medication ?Instructions ?Recorded amiodarone 200 mg tablet (Pacerone) 400 mg (2 x 200 mg) PO DAILY 30 09/06/25 days #60 tabs atorvastatin 40 mg tablet 40 mg PO BEDTIME 30 days #30 tabs 09/06/25 Allergies Allergy/AdvReac Type Severity Reaction Status Date / Time cephalexin (From Keflex) Allergy ADR-Faintin Verified 09/06/23 12:48 g morphine Allergy ALGY-Redness Verified 10/06/23 23:10 of Skin Sulfa (Sulfonamide Allergy ADR-Agitate Verified 09/06/23 12:48 Antibiotics) d sulfamethoxazole (From Allergy ADR-Faintin Verified 09/06/23 12:48 Bactrim) g trimethoprim (From Bactrim) Allergy ADR-Faintin Verified 09/06/23 12:48 g Review of Systems Const: Denies: fever(s) or chills Card: Denies: chest pain Resp: Denies: dyspnea GI: Denies: abdominal pain : Denies: dysuria, urinary frequency or urinary urgency Musc: Denies: neck pain or back pain Skin/Breast: Denies: rash [facility] PFSH: Medical History (Updated 09/09/25 @ 11:42 by Chandana Wick DO) Supraventricular tachycardia Social History Smoking and tobacco/nicotine status: current every day tobacco/nicotine user Physical Exam Const: COMMON NORMALS: no acute distress GENERAL APPEARANCE: cooperative and comfortable ORIENTATION/CONSCIOUSNESS: Yes awake, Yes oriented to person, Yes oriented to place and Yes oriented to time HENMT: COMMON NORMALS: normocephalic, atraumatic and hearing grossly normal bilaterally HEAD & SCALP: normocephalic and atraumatic Resp: COMMON NORMALS: normal respiratory effort, No retractions, No use of accessory muscles and clear to auscultation bilaterally AUSCULTATION: clear to auscultation bilaterally Cardio: COMMON NORMALS: regular rhythm and No murmurs present (Cardio) RATE: tachycardic RHYTHM: regular rhythm GI: COMMON NORMALS: Soft to palpation and No hepatosplenomegaly present AUSCULTATION: Yes normoactive bowel sounds PALPATION: Yes Soft to palpation, No Tenderness to palpation present (GI), No Guarding due to palpation present (GI) and Yes No hepatosplenomegaly present Extremity: COMMON NORMALS: normal to inspection, capillary refill normal, no clubbing, cyanosis or edema, no calf tenderness and no pedal edema Neuro: SENSORIUM/ORIENTATION: Yes oriented to person, Yes oriented to place and Yes oriented to time Skin: COMMON NORMALS: no rashes or lesions noted GENERAL SKIN EXAM: no rashes or lesions noted Procedures Procedural Sedation Indication: other (Cardioversion) ASA Class: I Preparation: threat monitoring analyst applied, pulse oximeter, supplemental O2 applied, suction/airway equipment at bedside and IV secured Ketamine: IV Ketamine dose (mg): 200 Patient Tolerated Procedure: well Complications: hypoventilation Interventions: oxygen applied and airway repositioned Additional Comments: Minor hypopnea transient hypoxia easily resolves with supplemental oxygen and repositioning of airway Course Vital Signs: Vital signs: Vital Signs Temperature 98.0 F 09/06/25 09:02 Pulse Rate 76 09/06/25 09:02 Respiratory Rate 20 H 09/06/25 09:02 Blood Pressure 123/80 09/06/25 09:02 Pulse Oximetry 96 09/06/25 09:02 Oxygen Delivery Me thod Room Air 09/06/25 07:53 Oxygen Flow Rate 5 09/06/25 00:25 Fraction of Inspir ed Oxygen 40 09/05/25 03:00 MDM - Arrhythmia/Palpitations Medical Decision Making Patient presents in SVT with a sense of impending doom failed attempts with adenosine 6 mg and 12 mg. She subsequently underwent elective cardioversion which is successful on first try with procedural sedation using ketamine and cardioversion at 150 J. Immediately after cardioversion patient had brief sinus tachycardia which then improved to the rate of 90s and sustained there. She recovered from procedural sedation without any difficulty or complications. Will admit for observation she had a similar episode a week ago she may need further adjustment to her medications. Will admit for observation further evaluation and medication adjustment discussed with hospitalist consulted cardiology orders written. Medical Records I reviewed the patient's medical records. Lab Data I reviewed the patient's lab results. 09/06/25 02:45 09/06/25 02:45 Radiology Impressions Chest X-Ray 09/04/25 20:20 IMPRESSION: 1. Findings consistent with those of bronchitis/pneumonia right lower lobe.. Laboratory Results WBC 10.71 10^3/uL (3.29-11.43) 09/04/25 17:02 RBC 4.41 10^6/uL (3.85-5.65) 09/04/25 17:02 Hgb 11.30 g/dL (11.27-16.99) 09/04/25 17:02 Hct 36.6 % (36-47) 09/04/25 17:02 MCV 83.0 fl (85-98) L 09/04/25 17:02 MCH 25.6 pg (27-33) L 09/04/25 17:02 MCHC 30.9 g/dL (30-55) 09/04/25 17:02 RDW 17.1 % (12.1-15.1) H 09/04/25 17:02 Plt Count 373 10^3/cmm (157-399) 09/04/25 17:02 MPV 10.5 fL (7.4-10.4) H 09/04/25 17:02 Neut % (Auto) 62.8 % 09/04/25 17:02 Lymph % (Auto) 25.1 % 09/04/25 17:02 [place] % (Auto) 8.4 % 09/04/25 17:02 Eos % (Auto) 2.7 % 09/04/25 17:02 Baso % (Auto) 0.7 % 09/04/25 17:02 Neut # (Auto) 6.73 10^3/uL (1.8-7.7) 09/04/25 17:02 Lymph # (Auto) 2.7 10^3/uL (0.8-4.8) 09/04/25 17:02 [place] # (Auto) 0.9 10^3/uL (0.2-0.9) 09/04/25 17:02 Eos # (Auto) 0.3 10^3/uL (0.0-0.8) 09/04/25 17:02 Baso # (Auto) 0.1 10^3/uL (0.0-0.1) 09/04/25 17:02 Nucleated RBC % (auto) 0 % 09/04/25 17:02 Nucleated RBCs # 0.0 /100WBC 09/04/25 17:02 Sodium 136 mmol/L (136-145) 09/04/25 17:02 Potassium 3.7 mmol/L (3.5-5.1) 09/04/25 17:02 Chloride 95 mmol/L (98-107) L 09/04/25 17:02 Carbon Dioxide 26 mmol/L (22-29) 09/04/25 17:02 Anion Gap 18.7 (5-19) 09/04/25 17:02 BUN 6 mg/dL (6-20) 09/04/25 17:02 Creatinine 1.1 mg/dL (0.5-0.9) H 09/04/25 17:02 GFR Calculation 52.6 mL/min (90-130) L 09/04/25 17:02 Glucose 174 mg/dL (65-115) H 09/04/25 17:02 Calculated Osmolality 284 mOsm/kg (285-295) L 09/04/25 17:02 Calcium 9.2 mg/dL (8.5-10.5) 09/04/25 17:02 Magnesium 1.8 mg/dL (1.7-2.3) 09/04/25 17:02 Total Bilirubin 0.2 mg/dL (0.15-1.2) 09/04/25 17:02 AST 18 U/L (0-32) 09/04/25 17:02 ALT 19 U/L (0-33) 09/04/25 17:02 Alkaline Phosphatase 95 U/L (35-105) 09/04/25 17:02 Troponin T Baseline 82 ng/L (0-10) H 09/04/25 17:02 Total Protein 6.9 g/dL (6.6-8.7) 09/04/25 17:02 Albumin 4.1 g/dL (3.5-5.2) 09/04/25 17:02 Globulin 2.8 g/dL (1.3-4.6) 09/04/25 17:02 All radiology interpretation(s) finalized by discharge Discharge Plan Discharge Patient Disposition: Admitted As Inpatient Admit Provider: Cesar Aguilar Clinical Impression: Supraventricular tachycardia, Hypertension, History of pulmonary embolism, Hypothyroidism Condition: Stable Coding Level of Care Code ED 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
--- NOTE | 2025-09-04 18:02 | PM.HP ---
Providers/Chief Complaint Admitting Physician: Cesar Aguilar MD Primary Care Provider: Aaron Liao MD Chief Complaint: svt History of Present Illness Mildred Rojas is a 50 year old female with history of SVT, heart failure with reduced ejection fraction, anxiety/depression, hypertension, coronary artery disease, hypothyroidism, tobacco dependence, and morbid obesity who was seen in the ER for recurrent SVT by provider . Patient was seen previously for SVT that had spontaneous resolved, however this visit patient cardioverted received adenosine x 2 converted to normal sinus rhythm. Patient has history of cardiac stent x 2 in January of this year, repeat stress test this week that was abnormal. Patient endorses palpitations, shortness of breath, cough, anxiety. Patient denies chest pain, nausea, vomiting, diarrhea, abdominal pain, recent falls or injuries, or syncope. Patient was reluctant to be admitted, but given recurrence of SVT, history of reduced ejection fraction 23% and recent abnormal stress test, discussed patient comorbidities and high risk of mortality determined that the patient would definitely need to be admitted inpatient. Patient son and [id number] at the bedside, discussed medical concerns and need for admission, patient's family very supportive. ER provider contacted medical insurance coding specialist Dr. Berumen who graciously agrees for consultation. Patient will be placed in CSU with continued cardiac monitoring, n.p.o. midnight in anticipation for cardiology consultation and management. Reviewed admission with . Review of Systems General: Reports: 10 or more systems reviewed and unremarkable except in HPI and below Card: Reports: irregular heart rhythm and edema Resp: Reports: dyspnea and productive cough Psych: Reports: anxiety Medications/Allergies Home Medications ?Medication ?Instructions ?Recorded ?Confirmed ?Last Taken ?Type alprazolam 1 mg tablet 1 mg PO TID PRN Anxiety 04/20/23 08/23/25 04/20/23 History aspirin 81 mg tablet,delayed 81 mg PO DAILY 04/20/23 08/23/25 09/06/23 History release furosemide 40 mg tablet 80 mg PO DAILY 04/20/23 08/23/25 08/23/25 History metoprolol tartrate 50 mg tablet 50 mg PO BID 04/20/23 08/23/25 08/23/25 History omeprazole 40 mg capsule,delayed 40 mg PO DAILY 04/20/23 08/23/25 08/23/25 History release potassium chloride 20 mEq 20 meq PO QID 04/20/23 08/23/25 08/23/25 History tablet,extended release(part/cryst) triamterene 37.5 1 tab PO DAILY 04/20/23 08/23/25 08/23/25 History mg-hydrochlorothiazide 25 mg tablet venlafaxine 100 mg tablet 100 mg PO BID 04/20/23 08/23/25 08/23/25 History albuterol sulfate 2.5 mg/3 mL 2.5 mg inhalation QID PRN 08/23/25 08/23/25 Unknown History (0.083 %) solution for nebulization Shortness Of Breath apixaban 5 mg tablet (Eliquis) 5 mg PO BID 08/23/25 08/23/25 08/23/25 History diltiazem HCl 60 mg tablet 60 mg PO BID 08/23/25 08/23/25 08/23/25 History ergocalciferol (vitamin D2) 1,250 50,000 unit PO Q7D 08/23/25 08/23/25 08/22/25 History mcg (50,000 unit) capsule hydroxychloroquine 200 mg tablet 200 mg PO BID 08/23/25 08/23/25 08/23/25 History lamotrigine 100 mg tablet 100 mg PO BID 08/23/25 08/23/25 08/23/25 History levothyroxine 88 mcg tablet 88 mcg PO QAM 08/23/25 08/23/25 08/23/25 History nitroglycerin 0.4 mg sublingual See Rx Instructions .Route .COMPLEX 08/23/25 08/23/25 Unknown History tablet pilocarpine HCl 5 mg tablet 5 mg PO TID PRN Dry Mouth 08/23/25 08/23/25 Unknown History prasugrel HCl 10 mg tablet 10 mg PO DAILY 08/23/25 08/23/25 08/23/25 History pregabalin 50 mg capsule 50 mg PO BID 08/23/25 08/23/25 08/23/25 History Allergies Allergy/AdvReac Type Severity Reaction Status Date / Time cephalexin (From Keflex) Allergy ADR-Faintin Verified 09/06/23 12:48 g morphine Allergy ALGY-Redness Verified 10/06/23 23:10 of Skin Sulfa (Sulfonamide Allergy ADR-Agitate Verified 09/06/23 12:48 Antibiotics) d sulfamethoxazole (From Allergy ADR-Faintin Verified 09/06/23 12:48 Bactrim) g trimethoprim (From Bactrim) Allergy ADR-Faintin Verified 09/06/23 12:48 g PFSH Acute PFSH: Medical History (Updated 09/04/25 @ 18:49 by Lida Borden, DATA COORDINATOR) Supraventricular tachycardia Social History Smoking and tobacco/nicotine status: current every day tobacco/nicotine user Vitals/I&O/Wt Last Vital Signs Temp 100.1 F H 09/04/25 16:42 Pulse 93 09/04/25 17:53 Resp 18 09/04/25 17:53 BP 114/63 09/04/25 17:53 Pulse Ox 99 09/04/25 17:53 O2 Del Method Nasal Cannula 09/04/25 17:53 O2 Flow Rate 3 09/04/25 17:53 Weight last 48 hrs Weight 136.078 kg Physical Exam Const: COMMON NORMALS: patient oriented x3 and well nourished GENERAL APPEARANCE: cooperative, disheveled and appears older than stated age NUTRITIONAL APPEARANCE: obese ORIENTATION/CONSCIOUSNESS: Yes awake, Yes oriented to person, Yes oriented to place and Yes oriented to time HENMT: COMMON NORMALS: normocephalic, external ears normal and Normal nasal mucous membranes and turbinates present MOUTH: lip normal, tongue normal and other (No teeth, no dentures in place) Eye: COMMON NORMALS: Equal, round and reactive pupils present GENERAL EYE: appearance normal, both eyes and all related structures Neck/C-Spine: COMMON NORMALS: full ROM GENERAL: Yes normal visual inspection Lymph: LYMPHATIC: no lymphadenopathy noted Resp: COMMON NORMALS: normal respiratory effort, No retractions, No use of accessory muscles and clear to auscultation bilaterally Cardio: COMMON NORMALS: no JVD, regular rhythm, S1 normal heart sound present and S2 normal heart sound present GI: COMMON NORMALS: Normal to inspection, nondistended, normoactive bowel sounds present Extremity: COMMON NORMALS: full ROM GENERAL: Yes edema (2+ RENARD dependent ) Neuro: COMMON NORMALS: patient oriented x3 and CN's II-XII intact bilaterally SPEECH: speech normal Psych: APPEARANCE: Yes disheveled ATTITUDE: Yes agitated Skin: COMMON NORMALS: no rashes or lesions noted Data 09/04/25 17:02 09/04/25 17:02 A&P Assessment and plan 1. Supraventricular tachycardia: 2. Abnormal stress test: 3. Palpitations: 4. Hypertension: 5. GERD (gastroesophageal reflux disease): 6. Hypothyroidism: 7. Anxiety: 8. Tobacco abuse: Plan: SVT Abnormal Stress Test per patient earlier this week Hx of Cardiac Stent x 21 January 2025 Palpitations - Treated in ER with adenosine 6mg, 12mg - Now in NSR - Telemetry monitoring - Troponin 82, pending repeat - Pending lipid panel - Cardiac Diet, NPO Midnight - ER provider consulted for cardiology management - CSU admission Hypertension Stated Heart failure with EF 23% - Blood pressure on admission 114/63 - Continue cardioprotective medications once verified GERD - Continue PPI Hypothyroidism - Pending TSH - Resume levothyroxine once verified Tobacco Abuse - Has been trying to reduce smoking from 1 pack/day to 1/2 pack/day -Complete cessation advised - As needed nicotine patch Anxiety/Depression - Very anxious at time of admission - Resume home medications once verified Morbid Obesity - Admitting BMI 49.9 - Lifestyle modifications and weight loss advised VTE PPX: SCD's and Eliquis GI PPX: PPI Code Status: Full Code PDMP PDMP Reviewed: Not Reviewed Attestations Medical Necessity Statement*: Patient will be admitted and is expected to cross 2 midnights with SVT, abnormal stress test, need for cardiology consultation and management. and Moderate Time for a total of 75 minutes, includes reviewing past or interval history, examining/interviewing patient, placing orders, counseling patient/family/other support, updating patient/family/other support, discussing plan of care with staff, communicating with other healthcare providers and documenting encounter Diagnoses Supraventricular tachycardia I47.10 Abnormal stress test R94.39 Palpitations R00.2 Hypertension I10 GERD (gastroesophageal reflux disease) K21.9 Hypothyroidism E03.9 Anxiety F41.9 Tobacco abuse Z72.0
[2025-09-04] MEDS: LORazepam 2 mg/mL INJ 1 mL 0.5 MG IVP (18:24)
[2025-09-04 19:32] LABS: Troponin 5 2HR 123.9 ng/L (0-10); Troponin 5 2HR Delta 41.9 ABS# (0-10)
[2025-09-04 19:40] LABS: Cholesterol 213 mg/dL (0-200); HDL Cholesterol 38 mg/dL (60-100); Thyroid Stimulating Hormone 0.82 uIU/mL (0.27-4.20); Triglycerides 113 mg/dL (0-150)
--- NOTE | 2025-09-04 20:20 | XRR_ITS ---
PROCEDURE INFORMATION: Exam: XR Chest Exam date and time: 09/04/2025 9:53 PM Age: 50 years old Clinical indication: Prior surgery; Surgery date: 6+ months; Surgery type: Coronary stents; New onset of cough and fever; Additional info: Dr marquez, fever and cough TECHNIQUE: Imaging protocol: Radiologic exam of the chest. Views: 1 view. COMPARISON: CR (CHEST, ) 09/04/2025 5:43 PM FINDINGS: Lungs: Non optimal inspiration. Interval appearance of the some mild peribronchial opacities in the right base and some mild bronchial wall thickening in the right base. This consistent with bronchitis/pneumonia. Left lung largely obscured by overlying instruments. Pleural spaces: Unremarkable. No pleural effusion. No pneumothorax. Heart/Mediastinum: Heart size unchanged. Bones/joints: Mild degenerative changes thoracic spine. XR/XR chest 1V portable 10096 IMPRESSION: 1. Findings consistent with those of bronchitis/pneumonia right lower lobe..
[2025-09-04] MEDS: pantoprazole 40 mg SDV IVP (21:27)
[2025-09-04] MEDS: heparin drip 25,000 UNIT/500 ML PREMIX 38 UNIT IV (21:28)
[2025-09-04] MEDS: heparin 5,000 unit/mL INJ 1 mL IVP (21:30)
--- NOTE | 2025-09-04 22:47 | ECG_ITS ---
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 Measurements Intervals [place] Rate: 65 P: 42 AR: 134 QRS: 20 QRSD: 116 T: -49 QT: 452 QTc: 470 Interpretive Statements SINUS RHYTHM POSSIBLE RIGHT VENTRICULAR CONDUCTION DELAY [RSR (QR) IN V1/V2] INFERIOR INFARCTION, OLD NONSPECIFIC ST-T WAVE ABNORMALITIES, CONSIDER ISCHEMIA Compared to ECG 09/04/2025 17:28:56 Myocardial infarct finding still present MILD ST DEPRESSION IS NEW Electronically Signed On 09-06-2025 16:35:44 COLLAR SETTER by Roby Berumen M.D. [email or web address]
[2025-09-04 23:26] LABS: Troponin 5 6HR 173.6 ng/L (0-10); Troponin 5 6HR Delta 91.6 ng/L (0-12)
[2025-09-05] VITALS (12 sets, daily range): BP systolic 102–128; BP diastolic 60–71; PULSE 54–73; RESP 14–21; TEMP 36.2–36.6; O2SAT 18–100; BMI 50.8
[2025-09-05 00:23] LABS: Coronavirus 229E,HKU1,NL63,OC4 Not Detected (NOT DETECT); Parainfluenza Virus Type 1 Not Detected (NOT DETECT); Parainfluenza Virus Type 2 Not Detected (NOT DETECT); Parainfluenza Virus Type 3 Not Detected (NOT DETECT); Parainfluenza Virus Type 4 Not Detected (NOT DETECT); SARS-COV-2 Not Detected (NOT DETECT)
--- NOTE | 2025-09-05 00:32 | PM.CCNAC ---
Critical Care Event Note The high probability of a clinically significant, sudden or life threatening deterioration of the patient's [] system(s) required my full and direct attention, intervention and personal management. The critical care time is as shown. This time is in addition to time spent performing any reported procedures but includes the following: [x] Data and vital sign review and interpretation [x] Patient assessment, examination and intervention [x] Documentation [x] Medication orders and management Critical Care Time Code activated: No Critical Care Time (min): 25 Additional information about critical care time: - Patient's 120-minute troponin 123.9, delta of 41.9, no active chest pain, no acute ST-T wave changes - Patient's home medications had not been resumed, in the EMR she had not received any blood thinners since arriving to the ER at about 4:43 PM - Patient was started on a heparin drip at about 7 PM - Start aspirin, statin - Discussed with nursing staff in the evening time, patient's 6-hour troponin 173.6, delta 91.6 at about close to midnight - Nursing staff had informed me that patient had taken her Eliquis that she had at bedside around 7 PM -The medications that she was given were not documented in the electronic medical records - Discussed with nursing staff duplication of blood thinners - Heparin drip was stopped at around 12 AM - Will check PTT - Discussed with patient, she is alert oriented x 3 follow commands, her medications are at bedside, she has a history of CAD status post stenting x 2 in January, she did have a positive stress test - Discussed with patient that if she takes any medications at bedside she should notify nursing staff, subsequently nursing staff can notify physician, and placed medications in EMR to avoid duplication of medications - Discussed with patient duplication of blood thinners of Eliquis and heparin drip - Discussed monitoring for bleeding, monitoring for side effects, monitor for complications - She voiced understanding, all questions answered - Will resume heparin drip at around 7 AM - She currently denies any chest pain, headache, blurry vision, nausea, vomiting, bloody or black stools, nosebleeds - Reconciled the patient's home medications - Advised nursing staff to document all the medications that she is taking at bedside into the EMR to avoid duplication Coding Level of Care Code Acute Code for Timothy Cueto
--- NOTE | 2025-09-05 00:41 | PC.NURSE ---
Patient took home medication potassium, eliquis, venlafaxine, metoprolol, hydroxychoroquine. Heparin gtt put on hold until [address] Romo aware. Ptt is ordered for 0330. Patient educated on avoiding home medications while in facility.
[2025-09-05 03:26] LABS: Hematocrit 30.8 % (36-47); Hemoglobin 9.30 g/dL (11.27-16.99); Mean Corpuscular HGB Conc 30.2 g/dL (30-55); Mean Corpuscular Hemoglobin 25.7 pg (27-33); Mean Corpuscular Volume 85.1 fl (85-98); Nucleated Red Blood Cells % 0 %; Platelet Count 291 10^3/cmm (157-399); Red Blood Count 3.62 10^6/uL (3.85-5.65); White Blood Count 8.31 10^3/uL (3.29-11.43)
[2025-09-05 03:42] LABS: Partial Thromboplastin Time 35.7 SECONDS (23.9-36.7)
[2025-09-05 03:55] LABS: Alanine Aminotransferase 16 U/L (0-33); Albumin Level 3.3 g/dL (3.5-5.2); Alkaline Phosphatase 77 U/L (35-105); Anion Gap 10.7 (5-19); Aspartate Amino Transferase 22 U/L (0-32); Blood Urea Nitrogen 8 mg/dL (6-20); Calcium 8.5 mg/dL (8.5-10.5); Carbon Dioxide 30 mmol/L (22-29); Chloride 103 mmol/L (98-107); Globulin 2.7 g/dL (1.3-4.6); Glucose 125 mg/dL (65-115); Magnesium 1.9 mg/dL (1.7-2.3); Osmolality Calculated 290 mOsm/kg (285-295); Potassium 3.7 mmol/L (3.5-5.1); Sodium 140 mmol/L (136-145); Total Protein 6.0 g/dL (6.6-8.7)
[2025-09-05 05:21] LABS: Glucose Urine UA Negative (Normal); Nitrate Urine Negative (Negative); Specific Gravity, Urine 1.013 (1.005-1.030)
[2025-09-05 05:25] LABS: Add Urine Microscopic? YES
[2025-09-05] MEDS: FLECAINIDE 50 MG TABLET PO (06:09)
--- OUTSIDE RECORDS SUMMARY | 2025-09-05 07:07 | XMS_ITS | Clinical Summary ---
Author Organization [facility] Address [address] [place] [address] Phone Care Team Providers Care E Learning Coordinator Name Role Phone Unavailable Primary Care Provider [...] (#1) 06/22/2025 Influenza Vaccine 06/22/2025 Insurance MEDICAID [place]
--- OUTSIDE RECORDS SUMMARY | 2025-09-05 07:08 | XMS_ITS | Patient Health Record ---
Author Organization [facility] Address [address] [place] [address] Care Team Providers [place] Detective Name Role Phone Aaron Liao MD Primary Care Provider Unavail able Henrry Alejandro Unavailable [phone] Lenin Walker Unavailable [phone] Dianne Park Unavailable [phone] Allergies Allergen (clinical drug ingredient) Drug/Non Drug Allergy documented on EMR Reaction Allergy Type Onset Date Status sulfamethoxazole / trimethoprim Sulfamethoxazole-Tri methoprim , Drug Allergy Active cephalexin Cephalexin , Drug Allergy Activ e morphine Morphine Unknown Drug Allergy Active Substance with sulfonamide structure and antibacterial mechanism of action (substance) Sulfa Antibiotics hives Drug Allergy A ctive Results Component Value Reference Range Flag Notes NM Lexiscan Cardiolite-[id number] Reviewed date:02/09/2025 03:49:06 PM Interpretation: Performing Lab: Notes/Report: fmv=[id number]&org=iSite CBC Reflex Man Diff 08113, 8 8049 Reviewed date:03/09/2025 08:09:28 AM Interpretation: Performing Lab: Notes/Report: WBC 8.1 4.5-11.0 X10'3 RBC 4.31 4.00-5.20 X10'6 Hgb 12.2 12.0-16.0 G/DL Hct 39.0 36.0-46.0 % MCV 90.5 80.0-100.0 FL MCH 28.3 27.0-31.0 PG MCHC 31.3 31.0-37.0 G/DL Platelet 337 150-400 X10'3 RDW-SD 52.9 35.0-49.0 FL HI RDW-CV 15.9 12.2-15.6 % HI MPV 10.4 9.2-12.0 FL Review Auto Diff Conf WBC Auto Diff--36706 Reviewed date:03/09/2025 08:09:28 AM Interpretation: Performing Lab: Notes/Report: Added by Discern Rules Neutro Auto% 53.3 40.0-70.0 % Lymph Auto% 34.9 22.0-44.0 % Mcpherson Auto% 7.5 3.0-7.0 % HI Eos Auto% 3.2 2.0-4.0 % Baso Auto% 0.6 0.0-1.0 % NRBC% .00 .00-.20 /100 intact WBC's Neutro Abs 4.31 .80-7.70 Absolute Neutrophil Count 4310 NA Lymph Abs 2.82 .10-4.10 Mcpherson Abs .61 .20-1.00 Eos Abs .26 .00-.40 Baso Abs .05 .00-.20 NRBC# .00 .00-.20 X10'3 Imm Gran Abs .04 .00-.10 Imm Gran% .5 .0-.4 % HI zzzHeart Cath Lt poss PTCA Reviewed date:03/09/2025 08:09:28 AM Interpretation: Performing Lab: Notes/Report: mhr=[id number]&org=iSite POCT-ACT--NO CPT Reviewed date:03/09/2025 08:09:28 AM Interpretation: Performing Lab: Notes/Report: POCT-ACT 241 75-120 SEC HI Schedule Confirmation Reviewed date:03/09/2025 08:09:28 AM Interpretation: Performing Lab: Notes/Report: Heart Cath Lt poss PTCA zzzHeart Cath Lt poss PTCA Reviewed date:03/09/2025 08:09:28 AM Interpretation: Performing Lab: Notes/Report: See Below For Report This report was dictated outside of the [employer] system. Read See Below For Report NM Lexiscan Cardiolite-[id number] Reviewed date:09/03/2025 03:19:04 PM Interpretation: Performing Lab: Notes/Report: See Below For Report NM Lexiscan Cardiolite Read See Below For Report NM Lexiscan Cardiolite-[id number] Reviewed date:08/31/2025 12:36:44 PM Interpretation: Performing Lab: Notes/Report: mcq=[id number]&org=iSite Electrocardiogram (EKG, 9300 0) Reviewed date:08/27/2025 04:40:33 PM Interpretation: Performing Lab: Notes/Report: Basic Metabolic Panel (BMP) 01987 Reviewed date:03/09/2025 08:09:28 AM Interpretation: Performing Lab: Notes/Report: Sodium 136 136-145 MMOL/L Potassium 3.6 3.5-5.1 MMOL/L Chloride 100 98-107 MMOL/L CO2 29.3 20.0-31.0 MMOL/L Glucose Serum 166 71-110 MG/DL HI Testing p erformed at [facility], [address] [place] [address] [place] [address]. CLIA ID#: [id number] BUN 10 7-21 MG/DL Creat 1.00 .51-1.17 MG/DL F-mjokyi-w-benzoquino ne imine (NAPQI) is a metabolite of acetaminophen, [...] MG/DL LOW Osmo Serum,Calculated 285 280-300 MOSM/KG Lipid Panel Reflex DLDL 8009 9, 01778 Reviewed date:03/09/2025 08:09:28 AM Interpretation: Performing Lab: Notes/Report: Trig 198 NA Classification Guidelines:Triglycerid es Adults: >20yrs Desirable <150 Borderline High 150-199 [...] Trig is >400 mg/dl. See DLDL result. Troponin-I 41508 Reviewed date:03/09/2025 08:09:28 AM Interpretation: Performing Lab: Notes/Report: Troponin-I 16 2-34 pg/mL NM Lexiscan Cardiolite-66864 Reviewed date:02/11/2025 04:42:01 PM Interpretation: Performing Lab: Notes/Report: See Below For Report NM Lexiscan Cardiolite Read See Below For Report WBC Auto Diff--90331 Reviewed date:03/09/2025 08:09:28 AM Interpretation: Performing Lab: Notes/Report: Added by Discern Rules Neutro Auto% 60.0 40.0-70.0 % Lymph Auto% 24.7 22.0-44.0 % Mcpherson Auto% 9.6 3.0-7.0 % HI Eos Auto% 3.0 2.0-4.0 % Baso Auto% 1.0 0.0-1.0 % NRBC% .00 .00-.20 /100 intact WBC's Neutro Abs 4.87 .80-7.70 Absolute Neutrophil Count 4870 NA Lymph Abs 2.00 .10-4.10 Mcpherson Abs .78 .20-1.00 Eos Abs .24 .00-.40 Baso Abs .08 .00-.20 NRBC# .00 .00-.20 X10'3 Imm Gran Abs .14 .00-.10 HI Imm Gran% 1.7 .0-.4 % HI CBC Ref[place] Diff 54195, 8 5007 Reviewed date:03/09/2025 08:09:28 AM Interpretation: [...] Review Auto Diff Conf Partial Thromboplastin Time 96886 Reviewed date:03/09/2025 08:09:28 AM Interpretation: Performing Lab: Notes/Report: PTT 23.7 22.6-31.8 SEC Therapeutic Range: 60-100. Critical Value Starting at > 100. Lipid Panel Reflex DLDL 8006 1, 04106 Reviewed date:03/09/2025 08:09:28 AM Interpretation: Performing Lab: Notes/Report: Diagnosis Description: Abnormal result of other cardiovascular function study Diagnosis Description: Paroxysmal atrial fibrillation Diagnosis Description: Gastro-esophageal reflux disease without esophagitis Diagnosis Description: Chest pain, unspecified Diagnosis Description: Shortness of breath Diagnosis Description: Palpitations Diagnosis Description: Other fatigue Trig 151 NA Classification Guidelines:Triglycerid es Adults: >20yrs Desirable <150 Borderline High 150-199 [...] See DLDL result. Basic Metabolic Panel (BMP) 68487 Reviewed date:03/09/2025 08:09:28 AM Interpretation: Performing Lab: [...] MMOL/L Glucose Serum 106 71-110 MG/DL Testing p erformed at [facility], [address] [place] [address] [place] [address]. CLIA ID#: [id number] BUN 8 7-21 MG/DL Creat .97 .51-1.17 MG/DL W-rjakdj-e-benzoquino ne imine (NAPQI) is a metabolite of acetaminophen, [...] 8.7-10.4 MG/DL Osmo Serum,Calculated 283 280-300 MOSM/KG Prothrombin Time 26208 Reviewed date:03/09/2025 08:09:28 AM Interpretation: Performing Lab: [...] Lab: Notes/Report: Heart Cath Lt poss PTCA Crew Leader/Control Room Operator 30 days Reviewed date:08/27/2025 03:26:46 PM Interpretation: Performing Lab: Notes/Report: PURA Sánchez Cardiolite-73221 Reviewed date:08/27/2025 03:09:45 PM Interpretation: Performing Lab: Notes/Report: Schedule Confirmation Reviewed date:02/19/2025 09:02:27 AM Interpretation: Performing Lab: Notes/Report: Heart Cath Lt poss PTCA Reason For Referral No Information Medications Medication SIG (Take, Route, Frequency, Duration) Notes Start Date End Date Status Eliquis 5 MG Tablet as directed Orally 2xday Active traZODone HCl 150 MG Tablet 1 tablet at bedtime Orally Once a day Not-Taking Furosemide 40 MG Tablet 1 tablet Orally 2x a day Active Pilocarpine HCl Acti ve Pregabalin 50 MG Capsule 1 capsule Orall y twice a day Active Nitrofurantoin Monohyd Macro 100 MG Capsule TAKE ONE CAPSULE BY MOUTH TWICE DAILY Oral; Duration: 10 Days Not-Taking ALPRAZolam 1 MG Tablet 1 tablet Orally Twice a day Active Omeprazole 40 MG Capsule Delayed Release 1 capsule 30 minutes before morning meal Orally Once a day Active oxyCODONE-Acetaminophen 5-325 MG Tablet 1 tablet as needed Orally every 6 hrs Not-Taking Metoprolol Tartrate 50 MG Tablet 1 tablet with food Orally Twice a day--can take extra dose as needed for palpitaitons; Duration: 90 days Active Hydroxychloroquine Sulfate 200 MG Tablet as directed Orally twice a day Active lamoTRIgine 100 MG Tablet Oral; Duration : 30 Days Active Prasugrel HCl 10 MG Tablet 1 tablet Oral daily; Duration: 30 days Active Triamterene-HCTZ 37.5-25 MG Tablet 1 tablet in the morning Orally Once a day Active Potassium Chloride ER 20 MEQ Tablet Extended Release 1 tablet with food Orally 4x a day Active Iron (Ferrous Sulfate) 325 (65 Fe) MG Tablet 1 tablet Orally Three times a Week Active dilTIAZem HCl 60 MG Tablet 1 tablet Oral ly twice a day; Duration: 90 days Not-Taking [place] 3 500 Active Gabapentin 300 MG Capsule 1 capsule Oral ly Three times a day Not-Taking Levothyroxine Sodium 88 MCG Capsule 1 tablet in the morning on an empty stomach Orally Once a day Active Venlafaxine HCl ER 150 MG Capsule Extended Release 24 Hour 1 capsule with food Orally twice a day Active Leflunomide 10 MG Tablet 1 tablet Orally Once a day Active Vitamin D (Ergocalciferol) 1.25 MG (44345 UT) Capsule TAKE ONE CAPSULE BY MOUTH ONCE WEEKLY Oral; Duration: 28 Days Active Immunizations Vaccine Route Administration Date Status Comme nts Influenza (whole), CPT 22723 Inactive Unknown 07/24/2018 Administered Social History Tobacco [...] alcohol? Denies Section Notes: Tobacco - 1ppd Tobacco - 1ppd Problems Problem Type SNOMED Code ICD Code Onset Dates Problem Status W/U Status Risk Notes Problem Hypersomnia (84615375) Hypersomnia, unspecified (G47.10) Active confirmed Problem Sleep related hypoventilation (033078880) Sleep related hypoventilation in conditions classified elsewhere (G47.36) Active confirmed Problem Angina co-occurrent and due to coronary arteriosclerosis (disorder) (5116584708406655 2) Atherosclerotic heart disease of [place] coronary artery with other forms of angina pectoris (I25.118) Active confirmed Problem Essential hypertension (91308488) Essential hypertension (I10) Active confirmed Problem Tobacco user (265280847) Cigarette nicotine dependence without complication (F17.210) Active confirmed Problem Hyperlipidaemia (31578758) Hyperlipidemia, unspecified hyperlipidemia type (E78.5) Active confirmed Problem History of pulmonary embolus (999884790) History of pulmonary embolism (Z86.711) Active confirmed Problem Excessive daytime sleepiness - normal night sleep (328022551) Daytime sleepiness (R40.0) Active confirmed Problem Chronic dental infection (K04.7) Active confirmed Problem Long-term current use of drug therapy (512934683) Antiplatelet or antithrombotic long-term use (Z79.02) Active confirmed Problem Atherosclerotic heart disease of [place] coronary artery without angina pectoris (035921381730314) Arteriosclerosis of coronary artery (I25.10) Active confirmed Problem History of placement of stent for coronary artery disease (situation) (860334569) H/O heart artery stent (Z95.5) Active confirmed Problem Extreme obesity with alveolar hypoventilation (085625524) Obesity hypoventilation syndrome (E66.2) Active confirmed Problem Diverticular disease of colon (893297724) Diverticulosis large intestine w/o perforation or abscess w/o bleeding (K57.30) Active confirmed Problem Atrophic gastritis (40027072) Mild chronic gastritis (K29.50) Active confirmed Problem Gastroesophageal reflux disease (430928353) Chronic gastroesophageal reflux disease (K21.9) Active confirmed Problem Paroxysmal atrial fibrillation (338618455) Paroxysmal atrial fibrillation (I48.0) Active confirmed [id number] nomed Description:P aroxysmal atrial fibrillation Problem Fatigue (70123704) Other fatigue (R53.83) Active confirmed [id number] nomed Description:F atigue Problem Syncope and collapse (122246389) Syncope and collapse (R55) Active confirmed Noy-[id number]-M nomed Description:S yncope and collapse Vital Signs Heart Rate 59 /min 08/27/2025 Height-cm 162.56 cm 08/27/2025 Blood pressure diastolic 78 mm Hg 08/27/2025 Oximetry 100 % 08/27/2025 Weight-kg 138.35 kg 08/27/2025 Height 64 in 08/27/2025 Blood pressure systolic 120 mm Hg 08/27/2025 Weight 305 lbs 08/27/2025 BMI 52.35 kg/m2 08/27/2025 Procedures Procedure Date Ordered Date Performed Result Body Sit e Coronary Angio with Left Heart Cath 02/18/2025 02/18/2025 N/A Encounters Encounter Location Date Provider Diagnosis [facility] [address] [place] [address], [place] [address] 08/27/2025 Dianne Park Atherosclerotic hear t disease of [place] coronary artery with other forms of angina pectoris I25.118 ; Palpitations R00.2 ; Arteriosclerosis of coronary artery I25.10 ; Paroxysmal atrial fibrillation I48.0 ; H/O heart artery stent Z95.5 ; Essential hypertension I10 and Hyperlipidemia, unspecified hyperlipidemia type E78.5 [facility] [address] [place] [address], [place] [address] 02/18/2025 [facility] Abnormal cardiovascu lar stress test R94.39 ; Paroxysmal atrial fibrillation I48.0 ; Chronic gastroesophageal reflux disease K21.9 ; Chest pain, unspecified R07.9 ; Shortness of breath R06.02 ; Palpitations R00.2 and Other fatigue R53.83 [facility] [address] [place] [address], [place] [address] 08/31/2025 [facility] [address] [place] [address], [place] [address] 02/09/2025 [facility] [address] [place] [address], [place] [address] 03/04/2025 [facility] [address] [place] [address], [place] [address] 04/09/2025 [facility] Arteriosclerosis of coronary artery I25.10 ; Paroxysmal atrial fibrillation I48.0 ; H/O heart artery stent Z95.5 and Fatigue R53.83 [facility] [address] [place] [address], [place] [address] 09/03/2025 [facility] [address] [place] [address] [place] [address] 04/23/2025 Lenin Walker [facility] [address] [place] [address], [place] [address] 03/09/2025 [facility] [address] [place] [address], [place] [address] 02/18/2025 [facility] [address] [place] [address] 02/11/2025 [facility] [address] [place] [address] 01/21/2025 [facility] Assessments Encounter Date Diagnosis (ICD Code) Assessment Notes Treatment Notes Treatment Clinical Notes Section Notes 08/27/2025 Atherosclerotic heart disease of [place] coronary artery with other forms of angina pectoris (ICD-10 - I25.118) With patient's history we will obtain Lexiscan Cardiolite for further ischemic evaluation given her recent revascularization and ongoing symptoms of shortness of breath and episodes of chest discomfort and irregular heartbeat. She is unable to ambulate on a treadmill due to her rheumatoid arthritis and mobility limitations. 08/27/2025 Palpitations (ICD-10 - R00.2) Device was applied today. Patient was instructed on the number of days to wear device. In order to record symptoms patient must follow the prompts on the provided smart phone. Patient was instructed that the device is water resistant. They can wear the device in the shower as long as the device itself does not become submerged in water. There are extra patches in the kit provided, to allow for additional dressing changes should dressing become loose. The importance of keeping the device box was stressed. Patient will need to place the device into the box and take this to the nearest UPS drop box once monitoring period complete. We will contact them with the results once the report is finalized. Will obtain 14-day monitor for quantification of palpitation symptoms 04/09/2025 Paroxysmal atrial fibrillation (ICD-10 - I48.0) [id number] med Description:Par oxysmal atrial fibrillation 04/09/2025 Arteriosclerosis of coronary artery (ICD-10 - I25.10) 02/18/2025 Abnormal cardiovascular stress test (ICD-10 - R94.39) 04/09/2025 H/O heart artery stent (ICD-10 - Z95.5) 02/18/2025 Paroxysmal atrial fibrillation (ICD-10 - I48.0) [id number] med Description:Par oxysmal atrial fibrillation 08/27/2025 Arteriosclerosis of coronary artery (ICD-10 - I25.10) 08/27/2025 Paroxysmal atrial fibrillation (ICD-10 - I48.0) [id number] med Description:Par oxysmal atrial fibrillation Will continue with metoprolol for rate control and Eliquis for stroke prevention. EKG today shows normal sinus rhythm with ventricular rate of 71. 02/18/2025 Chronic gastroesophageal reflux disease (ICD-10 - K21.9) 04/09/2025 Fatigue (ICD-10 - R53.83) 02/18/2025 Chest pain, unspecified (ICD-10 - R07.9) [id number] med Description:Michelle st pain 08/27/2025 H/O heart artery stent (ICD-10 - Z95.5) Patient had revascularization completed in February 2025. She is to continue with prasugrel 08/27/2025 Essential hypertension (ICD-10 - I10) Blood pressure is well-controlled today on current therapies. 02/18/2025 Shortness of breath (ICD-10 - R06.02) Mohit-[id number]- 02/18/2025 Palpitations (ICD-10 - R00.2) [id number] med Description:Pal pitations 08/27/2025 Hyperlipidemia, unspecified hyperlipidemia type (ICD-10 - E78.5) Statins had previously been discussed with patient with Dr. Sales. At that time he had recommended to hold off on initiating statin therapy due to her ongoing muscle pain and nausea issues 02/18/2025 Other fatigue (ICD-10 - R53.83) [id number] med Description:Fat igue 02/18/2025 Other Medical Decisio n making process: Basis findings recommend we going proceed with heart catheterization via radial approach and possible risk include not limited to arterial thrombosis dissection hematoma consult renal failure CVA NE answer we will get this procedure scheduled [...] Test Test Name Order Date Prothrombin Time 98388 02/18/2025 Basic Metabolic Panel (BMP) 68463 2024 Lipid Panel Reflex DLDL 42618, 95790 CBC Reflex Man Diff 91795, 62870 025 Electrocardiogram 12 Lead Tracing-85012 02/18/2025 Sleep Study with CPAP-45364 12/10/2023 Diagnostic Colonoscopy-47348 04/29/2024 EGD, Upper GI Diagnostic-62845 Electrocardiogram (EKG) - 04988 05/27/20 Next Appt Details Provider Name:Alejandro Sales , 01/04/2026 01:00:00 PM, [address] [place] [address], [phone], Insurance Providers Payer Name Payer Address Payer Phone Subscriber Number Group Number Insured Name Patient Relationship to Insured Coverage Start Date Coverage End Date [place] Medicaid [address] [place] [address] [id number] Mildred Rojas Self - patient is the [...] RELIEF 03.14- 03.15.2025 ER- PULM embolism - [place]
--- NOTE | 2025-09-05 07:27 | PC.NURSE ---
Patient wanting her hydroxychloroquine 200 mg, and her potassium cl er 40meq and her leflunomide 10 mg and also pilocarpine hcl 5 mg for dry mouth this morning she stated that if she does nopt get them she will just take her home medicaqtions. I educated patient on dangers of taking home medications. She also stated that she does not want to take her lyrica or lamictal, she only takes these when she needs them and she feels that she does not need them this morning. Dr Romo was notified and new orders were placed.
--- NOTE | 2025-09-05 07:33 | P.PN_ITS ---
Subjective 2 Subjective: Patient is a 50-year-old female seen and examined at bedside on hospital rounds this morning. Patient sitting up in bed denies chest pain or palpitations, or other symptoms currently. Patient continues to remain fairly anxious, states that she does not want any further cardiac interventions. Spoke with strike off machine operator Dr. Berumen who will be reading patient's echo and adjusting her medications. Dr. Berumen states that we can discontinue heparin drip. Will continue telemetry monitoring, she will be loaded with amiodarone. Expect discharge within the next 24 hrs. Vitals/I&O/Wt Last Vital Signs Temp 97.2 F L 09/05/25 07:16 Pulse 54 L 09/05/25 07:16 Resp 15 09/05/25 07:16 BP 116/69 09/05/25 07:16 Pulse Ox 99 09/05/25 07:16 O2 Del Method Nasal Cannula 09/05/25 07:16 O2 Flow Rate 1 09/05/25 00:00 FiO2 40 09/05/25 03:00 Weight last 48 hrs Weight 138.5 kg Weight 137.7 kg Weight 136.078 kg Physical Exam 2 Const: COMMON NORMALS: patient oriented x3 and well nourished GENERAL APPEARANCE: cooperative, disheveled and appears older than stated age N UTRITIONAL APPEARANCE: obese ORIENTATION/CONSCIOUSNESS: Yes awake, Yes oriented to person, Yes oriented to place and Yes oriented to time HENMT: COMMON NORMALS: normocephalic, external ears normal and Normal nasal mucous membranes and turbinates present HEAD & SCALP: normocephalic NOSE: Normal nasal mucous membranes and turbinates present EXTERNAL EAR: Yes external ears normal MOUTH: lip normal, tongue normal and other (No teeth, no dentures in place) Eye: COMMON NORMALS: Equal, round and reactive pupils present GENERAL EYE: appearance normal, both eyes and all related structures PUPIL: Yes Equal, round and reactive pupils present Neck/C-Spine: COMMON NORMALS: full ROM and no JVD GENERAL: Yes normal visual inspection Lymph: LYMPHATIC: no lymphadenopathy noted Resp: COMMON NORMALS: normal respiratory effort, No retractions, No use of accessory muscles and clear to auscultation bilaterally AUSCULTATION: clear to auscultation bilaterally Cardio: COMMON NORMALS: no JVD, regular rhythm, S1 normal heart sound present and S2 normal heart sound present RHYTHM: regular rhythm HEART SOUNDS: S1 normal heart sound present and S2 normal heart sound present GI: COMMON NORMALS: Normal to inspection, nondistended, normoactive bowel sounds present Extremity: COMMON NORMALS: full ROM GENERAL: Yes edema (2+ RENARD dependent ) Neuro: COMMON NORMALS: patient oriented x3 and CN's II-XII intact bilaterally SENSORIUM/ORIENTATION: Yes oriented to person, Yes oriented to place and Yes oriented to time SPEECH: speech normal Psych: APPEARANCE: Yes disheveled ATTITUDE: Yes agitated Skin: COMMON NORMALS: no rashes or lesions noted GENERAL SKIN EXAM: no rashes or lesions noted Data 09/05/25 07:08 09/05/25 03:12 A&P Assessment and plan 1. Supraventricular tachycardia: 2. Abnormal stress test: 3. Palpitations: 4. Hypertension: 5. GERD (gastroesophageal reflux disease): 6. Hypothyroidism: 7. Anxiety: 8. Tobacco abuse: Plan: SVT Abnormal Stress Test per patient earlier this week Hx of Cardiac Stent x 21 January 2025 Palpitations - Treated in ER with adenosine 6mg, 12mg - Telemetry monitoring - Troponin 82, 123.9, 173.6 - Type II [place] secondary to SVT - Cardiac Diet - Greatly appreciate cardiology consultation management with Dr. Berumen Hyperlipidemia - Lipid panel with triglycerides 113, cholesterol 213, LDL 152, HDL 38 - Atorvastatin 40 mg nightly Hypertension Stated Heart failure with EF 23% - Blood pressure on admission 114/63 - Continue cardioprotective medications - Pending ECHO GERD - Continue PPI Hypothyroidism - TSH 0.82 - Levothyroxine 88 mcg daily, adjustments per PCP Tobacco Abuse - Has been trying to reduce smoking from 1 pack/day to 1/2 pack/day - Complete cessation advised - As needed nicotine patch Anxiety/Depression - Very anxious, PRN Xanax - Continue home medications Morbid Obesity - Admitting BMI 49.9 - Lifestyle modifications and weight loss advised Hx of PE - Chronic anticoagulation with Eliquis VTE PPX: SCD's and Eliquis GI PPX: PPI Code Status: Full Code PDMP PDMP Reviewed: Not Reviewed Attestations 2 Medical Necessity Statement*: Patient will continue INP treatment crossing 2 midnights with SVT, abnormal stress test, need for cardiology consultation and management, adjustment of medications with loading of amiodarone. Coding Level of Care Code 63393 Diagnoses Supraventricular tachycardia I47.10 Abnormal stress test R94.39 Palpitations R00.2 Hypertension I10 GERD (gastroesophageal reflux disease) K21.9 Hypothyroidism E03.9 Anxiety F41.9 Tobacco abuse Z72.0
--- NOTE | 2025-09-05 07:36 | PC.NURSE ---
What we will do is recheck hgb at 7am. If hgb drops further will hold heparin drip, but if it stays the same or ges better start heparin drip at 9am:Orders from Dr Romo. Day shift nurse notified of orders and CBC was sent to lab. Waiting on results.
[2025-09-05 07:48] LABS: Hematocrit 32.1 % (36-47); Hemoglobin 9.70 g/dL (11.27-16.99)
[2025-09-05] MEDS: heparin drip 25,000 UNIT/500 ML PREMIX 99.14 UNIT IV (09:21)
--- NOTE | 2025-09-05 09:36 | PC.NURSE ---
heparin stopped per Dr Berumen and VINNY Hilton.
--- NOTE | 2025-09-05 09:40 | PM.CONSULT ---
Providers/Reason For Consult Consulting Physician/Specialty*: Roby Berumen MD Reason for Consult*: PSVT Requesting Physician: Roby Berumen MD Attending Physician: Lida Borden NP Primary Care Provider: Aaron Liao MD History of Present Illness History of Present Illness Mildred Rojas is a 50 year old female with a history of Pulmonary embolism on chronic Eliquis, obesity, and SVT. She had SVT years ago and it was well controlled up until recently. She had a stress test in 01/2025 that led to a heart cath in 02/2025 and 2 drug-eluting stents at [facility] in [place]. She hasn't felt that well over the last couple of months with OLIVARES and BLE edema. The [facility] in [place] did a stress test this week that reported a reduced EF of 23%. She was scheduled to have an echo soon to verify this. Patient was recently in our emergency room 08/23/2025 for SVT which spontaneously converted to sinus rhythm. The patient returned to the emergency room yesterday with SVT which did not convert with medication but did convert with DCCV. Tele personally interpreted this am by me - sinus rhythm with HRs in the low 60s, one 3 beat run of NSVT Medications/Allergies Home Medications ?Medication ?Instructions ?Recorded ?Confirmed ?Last Taken ?Type alprazolam 1 mg tablet 1 mg PO TID PRN Anxiety 04/20/23 09/04/25 04/20/23 History aspirin 81 mg tablet,delayed 81 mg PO DAILY 04/20/23 09/05/25 09/06/23 History release furosemide 40 mg tablet 80 mg PO DAILY 04/20/23 09/05/25 08/23/25 History metoprolol tartrate 50 mg tablet 50 mg PO BID 04/20/23 09/05/25 09/05/25 History omeprazole 40 mg capsule,delayed 40 mg PO DAILY 04/20/23 09/05/25 09/04/25 History release potassium chloride 20 mEq 20 meq PO QID 04/20/23 09/05/25 09/04/25 History tablet,extended release(part/cryst) triamterene 37.5 1 tab PO DAILY 04/20/23 09/05/25 09/04/25 History mg-hydrochlorothiazide 25 mg tablet venlafaxine 100 mg tablet 100 mg PO BID 04/20/23 09/05/25 09/04/25 History albuterol sulfate 2.5 mg/3 mL 2.5 mg inhalation QID PRN 08/23/25 09/04/25 09/04/25 History (0.083 %) solution for nebulization Shortness Of Breath apixaban 5 mg tablet (Eliquis) 5 mg PO BID 08/23/25 09/04/25 09/04/25 History ergocalciferol (vitamin D2) 1,250 50,000 unit PO Q7D 08/23/25 09/05/25 08/29/25 History mcg (50,000 unit) capsule hydroxychloroquine 200 mg tablet 200 mg PO BID 08/23/25 09/05/25 09/05/25 History lamotrigine 100 mg tablet 100 mg PO BID 08/23/25 09/05/25 08/23/25 History levothyroxine 88 mcg tablet 88 mcg PO QAM 08/23/25 09/05/25 09/04/25 History nitroglycerin 0.4 mg sublingual See Rx Instructions .Route 08/23/25 09/05/25 09/04/25 History tablet .COMPLEX PRN chest pain pilocarpine HCl 5 mg tablet 5 mg PO TID PRN Dry Mouth 08/23/25 09/05/25 09/04/25 History prasugrel HCl 10 mg tablet 10 mg PO DAILY 08/23/25 09/05/25 09/04/25 History pregabalin 50 mg capsule 50 mg PO BID 08/23/25 09/05/25 08/23/25 History Allergies Allergy/AdvReac Type Severity Reaction Status Date / Time cephalexin (From Keflex) Allergy ADR-Faintin Verified 09/06/23 12:48 g morphine Allergy ALGY-Redness Verified 10/06/23 23:10 of Skin Sulfa (Sulfonamide Allergy ADR-Agitate Verified 09/06/23 12:48 Antibiotics) d sulfamethoxazole (From Allergy ADR-Faintin Verified 09/06/23 12:48 Bactrim) g trimethoprim (From Bactrim) Allergy ADR-Faintin Verified 09/06/23 12:48 g Current Medications Generic Name Dose Route Start Last Admin Trade Name Freq PRN Reason Stop Dose Admin Albuterol/Ipratropium 3 ml 09/04/25 21:26 09/05/25 09:28 Ipratropium-Albuterol 3 Ml Neb INHALATION 3 ml Q4H PRN Administration SHORTNESS OF BREATH Alprazolam 1 mg 09/05/25 00:37 09/05/25 06:49 Alprazolam 0.5 Mg Tablet PO 1 mg TID PRN Administration Anxiety Aspirin 81 mg 09/04/25 20:40 09/05/25 06:08 Aspirin 81 Mg Ec Tablet PO 81 mg DAILY MELISA Administration Atorvastatin Calcium 40 mg 09/04/25 21:00 09/04/25 21:47 Atorvastatin 40 Mg Tablet PO Not Given BEDTIME MELISA Flecainide Acetate 50 mg 09/05/25 05:00 09/05/25 06:09 Flecainide 50 Mg Tablet PO 50 mg BID MELISA Administration Heparin Sodium/Sodium Chloride 25,000 unit in 500 mls @ 0 mls/hr 09/05/25 07:00 09/05/25 09:29 Heparin Drip IV 0 unit/kg/hr CONT MELISA 0 mls/hr Protocol Titration Per Protocol Lamotrigine 100 mg 09/05/25 05:00 09/05/25 06:14 Lamotrigine 100 Mg Tablet PO Not Given BID MELISA Levothyroxine Sodium 88 mcg 09/05/25 05:00 09/05/25 06:08 Levothyroxine 88 Mcg Tablet PO 88 mcg QAM MELISA Administration Metoprolol Tartrate 50 mg 09/05/25 05:00 09/05/25 06:08 Metoprolol Tartrate 50 Mg Tablet PO 50 mg BID MELISA Administration Non-Formulary Medication 100 mg 09/05/25 07:00 09/05/25 06:48 Venlafaxine PO 100 mg BID MELISA Administration Non-Formulary Medication 1 tab 09/05/25 07:00 09/05/25 06:48 Triamterene-Hydrochlorothiazid PO 1 tab DAILY MELISA Administration Non-Formulary 5 each 09/05/25 06:30 09/05/25 06:48 Medication( PO 5 each Pilocarpine 5 Mg Tab TID MELISA Administration ) Pantoprazole Sodium 40 mg 09/04/25 18:00 09/04/25 21:27 Pantoprazole 40 Mg Sdv IVP 40 mg Q24H MELISA Administration Potassium Chloride 40 meq 09/05/25 06:11 09/05/25 06:49 Potassium Chloride Er 20 Meq Tablet PO 40 meq BID MELISA Administration Prasugrel 10 mg 09/05/25 05:00 09/05/25 06:08 Prasugrel 10 Mg Tablet PO 10 mg DAILY MELISA Administration Pregabalin 50 mg 09/05/25 05:00 09/05/25 06:15 Pregabalin 50 Mg Capsule PO Not Given BID MELISA PFSH Acute PFSH: Medical History (Updated 09/05/25 @ 09:53 by Roby Berumen MD) Supraventricular tachycardia Social History Smoking and tobacco/nicotine status: current every day tobacco/nicotine user Vitals/I&O/Wt Last Vital Signs Temp 97.2 F L 09/05/25 07:16 Pulse 67 09/05/25 09:29 Resp 18 09/05/25 09:29 BP 116/69 09/05/25 07:16 Pulse Ox 94 09/05/25 09:29 O2 Del Method Room Air 09/05/25 09:29 O2 Flow Rate 1 09/05/25 00:00 FiO2 40 09/05/25 03:00 09/04/25 09/05/25 09/05/25 22:59 06:59 14:59 Intake Total 13.219 / 13.219 Output Total 800 / 800 Balance -800 / -800 13.219 / 13.219 Weight last 48 hrs Weight 305 lb 5.443 oz Weight 303 lb 9.224 oz Weight 300 lb Physical Exam Narrative: General: In no acute distress Neck: No jugular venous distention or carotid bruits Heart: Normal S1 and S2 with a regular rate and rhythm, no cardiac murmurs Lungs: Normal respiratory effort with no use of intercostal muscles, clear lungs sounds to auscultation Extremities: Mild edema left foot Neuro: Alert and oriented x 3 Data 09/05/25 07:08 09/05/25 03:12 A&P Assessment and plan 1. Supraventricular tachycardia: Recurrent, 2 ER visits over 2 weeks, this time requiring DCCV At this point, requires an antiarrythmic medication With her severely reduced EF on stress test and h/o CAD, the safest antiarrythmic for her is amiodarone Stop flecainide Start amiodarone 400mg tid Continue metoprolol tartrate 50mg bid stop diltiazem due to h/o reduced EF verify low EF with echo 2. Abnormal stress test: no mention of needing repeat heart cath by her district ranger after the stress test this week, but they did recommend getting echo to verify LVF 3. CAD (coronary artery disease): s/p 2 TOBI 01/2025 continue prasugrel and Eliquis Can stop ASA since has been > 60 days since TOBI placement and on prasugrel and Eliquis 4. History of pulmonary embolism: continue Eliquis 5. Cardiomyopathy: EF 23% per verbal history from family Perform echo today Stop diltiazem If truly has EF less than 50%, will advance GDMT 6. NSTEMI (non-ST elevated myocardial infarction): Presumed Type II NSTEMI from SVT at this point Request recent stress test report performed this week at [facility] Continue metoprolol PDMP PDMP Reviewed: Not Reviewed Coding Level of Care Code 30903 Diagnoses Supraventricular tachycardia I47.10 Abnormal stress test R94.39 CAD (coronary artery disease) I25.10 History of pulmonary embolism Z86.711 Cardiomyopathy I42.9 NSTEMI (non-ST elevated myocardial infarction) I21.4
[2025-09-05 11:26] LABS: Hematocrit 30.7 % (36-47); Hemoglobin 9.40 g/dL (11.27-16.99)
--- NOTE | 2025-09-05 23:37 | USCV_ITS ---
Mildred Rojas Age: 50 Gender: F : 1975 Exam Date: 09/05/2025 07:27 Ordering Phys: Mani Romo MD Technologist: EVA [place]am Location[place] [facility] [place]ication: nstemi BP: 123 / 68 HR: 57 Rhythm: Sinus Technical Quality: Adequate MEASUREMENTS (Male / Female) Normal Values 2D ECHO LV Diastolic Diameter PLAX 5.8 cm 4.2 - 5.9 / 3.9 - 5.3 cm IVS Diastolic Thickness 0.6 cm 0.6 - 1.0 / 0.6 - 0.9 cm IVS Systolic Thickness 1.2 cm LVPW Diastolic Thickness 0.9 cm 0.6 - 1.0 / 0.6 - 0.9 cm LVPW Systolic Thickness 1.4 cm LVOT Diameter 2.0 cm LV Ejection Fraction 2D Teich 49.6 % LV Ejection Fraction MOD 4C 65.8 % LV Ejection Fraction MOD 2C 61.1 % LV Ejection Fraction 2C AL 63.2 % LA Diameter 4.5 cm RA Systolic Volume 4C AL 31.5 ml RA Systolic Volume 4C MOD 32.0 ml LA Sys Volume AL 65.5 cm cubed LA Sys Volume Index AL 25.3 cm cubed/m squared IVC Diameter 2.0 cm M-MODE LA Ao Ratio MM 1.6 AV Cusp Separation MM 2.0 cm DOPPLER AV Peak Velocity 151.3 cm/s LVOT Peak Velocity 100.0 cm/s AV Area Cont Eq vti 2.0 cm squared AV Area Cont Eq pk 2.2 cm squared MV Peak Velocity 103.0 cm/s MV Area PHT 5.8 cm squared Mitral E to A Ratio 1.0 TR Peak Velocity 138.0 cm/s TR Peak Gradient 7.6 mmHg TR Mean Velocity 113.0 cm/s TR Mean Gradient 5.4 mmHg TR Velocity Time Integral 39.2 cm PV Peak Velocity 100.0 cm/s RV Ejection Time 0.3 s FINDINGS Left Ventricle Normal left ventricular cavity size. There is hypokinesis of the basal and mid inferior wall segments with globally normal left ventricular systolic function with an ejection fraction of 55%. Normal left ventricular wall thickness. Normal diastolic function. Right Ventricle Normal right ventricular size and systolic function. Right Atrium Normal right atrial size. Left Atrium Normal left atrial size. IA Septum Normal appearance of the interatrial septum. Mitral Valve No mitral valve stenosis. Mild mitral valve regurgitation. Aortic Valve No aortic valve stenosis or regurgitation. Tricuspid Valve Normal tricuspid valve structure. Trace regurgitation. Normal pulmonary pressure. Pulmonic Valve Normal pulmonic valve structure. No pulmonic valve stenosis or regurgitation. Pericardium No pericardial effusion. Aorta Normal diameter of the aortic root and ascending thoracic aorta. IVC Normal IVC diameter. CONCLUSIONS Normal left ventricular cavity size. There is hypokinesis of the basal and mid inferior wall segments with globally normal left ventricular systolic function with an ejection fraction of 55%. Normal right ventricular size and systolic function. Mild mitral valve regurgitation. Roby Berumen MD, FACC (Electronically Signed) Final Date: 05 September 2025 11:29 S
[2025-09-06] VITALS (8 sets, daily range): BP systolic 101–124; BP diastolic 51–80; PULSE 65–76; RESP 16–20; TEMP 36.7–36.8; O2SAT 93–99
[2025-09-06 03:40] LABS: Hematocrit 33.8 % (36-47); Hemoglobin 9.60 g/dL (11.27-16.99); Mean Corpuscular HGB Conc 28.4 g/dL (30-55); Mean Corpuscular Hemoglobin 24.9 pg (27-33); Mean Corpuscular Volume 87.6 fl (85-98); Nucleated Red Blood Cells % 0 %; Platelet Count 285 10^3/cmm (157-399); Red Blood Count 3.86 10^6/uL (3.85-5.65); White Blood Count 6.85 10^3/uL (3.29-11.43)
[2025-09-06 04:09] LABS: Alanine Aminotransferase 17 U/L (0-33); Albumin Level 3.6 g/dL (3.5-5.2); Alkaline Phosphatase 81 U/L (35-105); Blood Urea Nitrogen 9 mg/dL (6-20); Calcium 8.9 mg/dL (8.5-10.5); Carbon Dioxide 28 mmol/L (22-29); Chloride 99 mmol/L (98-107); Globulin 2.5 g/dL (1.3-4.6); Glucose 146 mg/dL (65-115); Magnesium 1.9 mg/dL (1.7-2.3); Osmolality Calculated 283 mOsm/kg (285-295); Sodium 136 mmol/L (136-145); Total Protein 6.1 g/dL (6.6-8.7)
[2025-09-06 04:11] LABS: Anion Gap 13.0 (5-19); Aspartate Amino Transferase 21 U/L (0-32); Potassium 4.0 mmol/L (3.5-5.1)
--- NOTE | 2025-09-06 07:07 | PM.DCS ---
Discharge Providers Date of Admission: 09/04/25 17:48 Date of Discharge: September 06, 2025 Attending Provider at Admission: Cesar Aguilar MD Attending Provider at Discharge: Lida Borden NP Primary Care Provider: Aaron Liao MD Diagnoses at Discharge Discharge Diagnosis 1. Supraventricular tachycardia: 2. Abnormal stress test: 3. Hypertension: 4. GERD (gastroesophageal reflux disease): 5. Hypothyroidism: 6. Tobacco abuse: Reason for Visit Reason for Visit: svt Brief History: Admission: Mildred Rojas is a 50 year old female with history of SVT, heart failure with reduced ejection fraction, anxiety/depression, hypertension, coronary artery disease, hypothyroidism, tobacco dependence, and morbid obesity who was seen in the ER for recurrent SVT by provider . Patient was seen previously for SVT that had spontaneous resolved, however this visit patient cardioverted received adenosine x 2 converted to normal sinus rhythm. Patient has history of cardiac stent x 2 in January of this year, repeat stress test this week that was abnormal. Patient endorses palpitations, shortness of breath, cough, anxiety. Patient denies chest pain, nausea, vomiting, diarrhea, abdominal pain, recent falls or injuries, or syncope. Patient was reluctant to be admitted, but given recurrence of SVT, history of reduced ejection fraction 23% and recent abnormal stress test, discussed patient comorbidities and high risk of mortality determined that the patient would definitely need to be admitted inpatient. Patient son and [id number] at the bedside, discussed medical concerns and need for admission, patient's family very supportive. ER provider contacted home health outreach coordinator Dr. Berumen who graciously agrees for consultation. Patient will be placed in CSU with continued cardiac monitoring, n.p.o. midnight in anticipation for cardiology consultation and management. Reviewed admission with . Hospital Course Hospital Course SVT Abnormal Stress Test per patient earlier this week Hx of Cardiac Stent x 21 January 2025 Palpitations - Treated in ER with adenosine 6mg, 12mg - Telemetry monitoring - Troponin 82, 123.9, 173.6 - Type II NM secondary to SVT - Cardiac Diet - Greatly appreciate cardiology consultation management with Dr. Berumen - Loaded amiodarone - ECHO: Normal left ventricular cavity size. There is hypokinesis of the basal and mid inferior wall segments with globally normal left ventricular systolic function with an ejection fraction of 55%. Normal right ventricular size and systolic function. Mild mitral valve regurgitation. Hyperlipidemia - Lipid panel with triglycerides 113, cholesterol 213, LDL 152, HDL 38 - Atorvastatin 40 mg nightly Hypertension Stated Heart failure with EF 23% - Blood pressure on admission 114/63 - Continue cardioprotective medications - Pending ECHO GERD - Continue PPI Hypothyroidism - TSH 0.82 - Levothyroxine 88 mcg daily, adjustments per PCP Tobacco Abuse - Has been trying to reduce smoking from 1 pack/day to 1/2 pack/day - Complete cessation advised - As needed nicotine patch Anxiety/Depression - Very anxious, PRN Xanax - Continue home medications Morbid Obesity - Admitting BMI 49.9 - Lifestyle modifications and weight loss advised Hx of PE - Chronic anticoagulation with Eliquis Patient is a very pleasant 50-year-old female who discharges today in stable condition. Patient had been loaded with amiodarone, continues amiodarone 400 mg p.o. daily x 30 days and then will decrease to 200mg daily from then on per . Advised to discontinue cardizem. Patient to continue statin, review medications with primary care provider with concern for polypharmacy. Patient will follow-up with her primary care provider in 1 to 2 days at her home health outreach coordinator at the next available appointment. Patient discharges in care of spouse, all questions and concerns addressed with patient prior to discharge. Physical Exam Const: COMMON NORMALS: patient oriented x3 and well nourished GENERAL APPEARANCE: cooperative, disheveled and appears older than stated age NUTRITIONAL APPEARANCE: obese ORIENTATION/CONSCIOUSNESS: Yes awake, Yes oriented to person, Yes oriented to place and Yes oriented to time HENMT: COMMON NORMALS: normocephalic, external ears normal and Normal nasal mucous membranes and turbinates present HEAD & SCALP: normocephalic NOSE: Normal nasal mucous membranes and turbinates present EXTERNAL EAR: Yes external ears normal MOUTH: lip normal, tongue normal and other (No teeth, no dentures in place) Eye: COMMON NORMALS: Equal, round and reactive pupils present GENERAL EYE: appearance normal, both eyes and all related structures PUPIL: Yes Equal, round and reactive pupils present Neck/C-Spine: COMMON NORMALS: full ROM and no JVD GENERAL: Yes normal visual inspection Lymph: LYMPHATIC: no lymphadenopathy noted Resp: COMMON NORMALS: normal respiratory effort, No retractions, No use of accessory muscles and clear to auscultation bilaterally AUSCULTATION: clear to auscultation bilaterally Cardio: COMMON NORMALS: no JVD, regular rhythm, S1 normal heart sound present and S2 normal heart sound present RHYTHM: regular rhythm HEART SOUNDS: S1 normal heart sound present and S2 normal heart sound present GI: COMMON NORMALS: Normal to inspection, nondistended, normoactive bowel sounds present Extremity: COMMON NORMALS: full ROM GENERAL: Yes edema (2+ RENARD dependent ) Neuro: COMMON NORMALS: patient oriented x3 and CN's II-XII intact bilaterally SENSORIUM/ORIENTATION: Yes oriented to person, Yes oriented to place and Yes oriented to time SPEECH: speech normal Psych: APPEARANCE: Yes disheveled ATTITUDE: Yes agitated Skin: COMMON NORMALS: no rashes or lesions noted GENERAL SKIN EXAM: no rashes or lesions noted Discharge Data Studies Completed and Pending Completed Studies During Hospitalization Category Date Time Status XR chest 1V portable [id number] Routine Exams 09/04/25 20:20 Completed XR chest 1V portable [id number] Stat Exams 09/04/25 16:47 Completed CV. echo complete* [id number] Stat Ultrasound 09/05/25 23:37 Completed Pending at discharge Category Date Time Status Complete Blood Count w/Auto AM LABS Lab 09/07/25 04:00 Ordered Comprehensive Metabolic Panel AM LABS Lab 09/07/25 04:00 Ordered Magnesium AM LABS Lab 09/07/25 04:00 Ordered Platelet Count Q2D Lab 09/07/25 04:00 Ordered Platelet Count Q2D Lab 09/09/25 04:00 Ordered Radiology Impressions Chest X-Ray 09/04/25 20:20 IMPRESSION: 1. Findings consistent with those of bronchitis/pneumonia right lower lobe.. Laboratory Results WBC 6.85 10^3/uL (3.29-11.43) 09/06/25 02:45 RBC 3.86 10^6/uL (3.85-5.65) 09/06/25 02:45 Hgb 9.60 g/dL (11.27-16.99) L 09/06/25 02:45 Hct 33.8 % (36-47) L 09/06/25 02:45 MCV 87.6 fl (85-98) 09/06/25 02:45 MCH 24.9 pg (27-33) L 09/06/25 02:45 MCHC 28.4 g/dL (30-55) L D 09/06/25 02:45 RDW 17.5 % (12.1-15.1) H 09/06/25 02:45 Plt Count 285 10^3/cmm (157-399) 09/06/25 02:45 MPV 10.9 fL (7.4-10.4) H 09/06/25 02:45 Neut % (Auto) 57.6 % 09/06/25 02:45 Lymph % (Auto) 28.8 % 09/06/25 02:45 Castro % (Auto) 9.2 % 09/06/25 02:45 Eos % (Auto) 3.6 % 09/06/25 02:45 Baso % (Auto) 0.7 % 09/06/25 02:45 Neut # (Auto) 3.94 10^3/uL (1.8-7.7) 09/06/25 02:45 Lymph # (Auto) 2.0 10^3/uL (0.8-4.8) 09/06/25 02:45 Castro # (Auto) 0.6 10^3/uL (0.2-0.9) 09/06/25 02:45 Eos # (Auto) 0.3 10^3/uL (0.0-0.8) 09/06/25 02:45 Baso # (Auto) 0.1 10^3/uL (0.0-0.1) 09/06/25 02:45 Nucleated RBC % (auto) 0 % 09/06/25 02:45 Nucleated RBCs # 0.0 /100WBC 09/06/25 02:45 APTT 35.7 SECONDS (23.9-36.7) 09/05/25 03:12 Sodium 136 mmol/L (136-145) 09/06/25 02:45 Potassium 4.0 mmol/L (3.5-5.1) 09/06/25 02:45 Chloride 99 mmol/L (98-107) 09/06/25 02:45 Carbon Dioxide 28 mmol/L (22-29) 09/06/25 02:45 Anion Gap 13.0 (5-19) 09/06/25 02:45 BUN 9 mg/dL (6-20) 09/06/25 02:45 Creatinine 1.0 mg/dL (0.5-0.9) H 09/06/25 02:45 GFR Calculation 58.7 mL/min (90-130) L 09/06/25 02:45 Glucose 146 mg/dL (65-115) H 09/06/25 02:45 Calculated Osmolality 283 mOsm/kg (285-295) L 09/06/25 02:45 Calcium 8.9 mg/dL (8.5-10.5) 09/06/25 02:45 Magnesium 1.9 mg/dL (1.7-2.3) 09/06/25 02:45 Total Bilirubin 0.2 mg/dL (0.15-1.2) 09/06/25 02:45 AST 21 U/L (0-32) 09/06/25 02:45 ALT 17 U/L (0-33) 09/06/25 02:45 Alkaline Phosphatase 81 U/L (35-105) 09/06/25 02:45 Troponin T Baseline 82 ng/L (0-10) H 09/04/25 17:02 Troponin T 120 Minute 123.9 ng/L (0-10) H 09/04/25 18:51 Delta Troponin T 41.9 ABS# (0-10) H* 09/04/25 18:51 Troponin T Hi Sens 6Hr 173.6 ng/L (0-10) H 09/04/25 23:00 Troponin T Hi Sens 6Hr Delta 91.6 ng/L (0-12) H* 09/04/25 23:00 Total Protein 6.1 g/dL (6.6-8.7) L 09/06/25 02:45 Albumin 3.6 g/dL (3.5-5.2) 09/06/25 02:45 Globulin 2.5 g/dL (1.3-4.6) 09/06/25 02:45 Triglycerides 113 mg/dL (0-150) 09/04/25 18:51 Cholesterol 213 mg/dL (0-200) H 09/04/25 18:51 LDL Cholesterol, Calc 152 mg/dL (50-129) H 09/04/25 18:51 HDL Cholesterol 38 mg/dL (60-100) L 09/04/25 18:51 LDL/HDL Ratio 4.00 RATIO (0.00-3.22) H 09/04/25 18:51 Cholesterol/HDL Ratio 5.61 mg/dL (0.0-4.40) H 09/04/25 18:51 TSH 0.82 uIU/mL (0.27-4.20) 09/04/25 18:51 Urine Color Yellow (Yellow) 09/05/25 05:00 Urine Appearance Clear (CLEAR) 09/05/25 05:00 Urine pH 7.0 (5-7) 09/05/25 05:00 Ur Specific [place] 1.013 (1.005-1.030) 09/05/25 05:00 Urine Protein Negative (Negative) 09/05/25 05:00 Urine Glucose (UA) Negative (Normal) 09/05/25 05:00 Urine Ketones Negative (Negative) 09/05/25 05:00 Urine Blood Negative (Negative) 09/05/25 05:00 Urine Nitrate Negative (Negative) 09/05/25 05:00 Urine Bilirubin Negative (Negative) 09/05/25 05:00 Urine Urobilinogen 1.0 mg/dL (Negative) 09/05/25 05:00 Ur Leukocyte Esterase Negative (Negative) 09/05/25 05:00 Urine RBC 0-2 /hpf (0-2) 09/05/25 05:00 Urine WBC 0-5 /hpf (0-5) 09/05/25 05:00 Ur Squamous Epith Cells 0-5 /hpf (0-5) 09/05/25 05:00 Amorphous Sediment Not Reportable 09/05/25 05:00 Urine Bacteria None seen /hpf (NONE) 09/05/25 05:00 Hyaline Casts 0-4 /lpf H 09/05/25 05:00 Adenovirus (PCR) Not detected (NOT DETECT) 09/04/25 21:19 C. pneumoniae DNA (PCR) Not detected (NOT DETECT) 09/04/25 21:19 Coronavirus 229E (PCR) Not detected (NOT DETECT) 09/04/25 21:19 Human Metapneumovir PCR Not detected (NOT DETECT) 09/04/25 21:19 Influenza A (H1) PCR Not detected (NOT DETECT) 09/04/25 21:19 Influ A (H1/09) PCR Not detected (NOT DETECT) 09/04/25 21:19 Influenza A (H3) PCR Not detected (NOT DETECT) 09/04/25 21:19 Influenza Type A (PCR) Not detected (NOT DETECT) 09/04/25 21:19 Influenza Type B (PCR) Not detected (NOT DETECT) 09/04/25 21:19 M. pneumoniae (PCR) Not detected (NOT DETECT) 09/04/25 21:19 Parainfluenza 1 (PCR) Not detected (NOT DETECT) 09/04/25 21:19 Parainfluenza 2 (PCR) Not detected (NOT DETECT) 09/04/25 21:19 Parainfluenza 3 (PCR) Not detected (NOT DETECT) 09/04/25 21:19 Parainfluenza 4 (PCR) Not detected (NOT DETECT) 09/04/25 21:19 RSV Type A (PCR) Not detected (NOT DETECT) 09/04/25 21:19 RSV Type B (PCR) Not detected (NOT DETECT) 09/04/25 21:19 Entero/Rhino (PCR) Detected (NOT DETECT) A 09/04/25 21:19 SARS-CoV-2 (PCR) Not detected (NOT DETECT) 09/04/25 21:19 Vitals Last Vital Signs Temp 98.3 F 09/06/25 04:00 Pulse 73 09/06/25 04:00 Resp 18 09/06/25 04:00 BP 124/72 09/06/25 04:00 Pulse Ox 97 09/06/25 04:00 O2 Del Method Room Air 09/06/25 04:00 O2 Flow Rate 5 09/06/25 00:25 FiO2 40 09/05/25 03:00 Discharge Plan Discharge Patient Disposition: Home Condition: Stable Prescriptions: New atorvastatin 40 mg Tablet 40 mg PO BEDTIME 30 Days Qty: 30 0RF amiodarone [Pacerone] 200 mg Tablet 400 mg PO DAILY 30 Days Qty: 60 0RF Continued furosemide 40 mg tablet 80 mg PO DAILY alprazolam 1 mg tablet 1 mg PO TID PRN (Reason: Anxiety) omeprazole 40 mg capsule,delayed release(DR/EC) 40 mg PO DAILY venlafaxine 100 mg tablet 100 mg PO BID potassium chloride 20 mEq tablet,ER particles/crystals 20 meq PO QID metoprolol tartrate 50 mg tablet 50 mg PO BID triamterene-hydrochlorothiazid 37.5-25 mg tablet 1 tab PO DAILY aspirin [Aspir-81] 81 mg Tablet,Delayed Release (Dr/Ec) 81 mg PO DAILY pilocarpine HCl 5 mg tablet 5 mg PO TID PRN (Reason: Dry Mouth) albuterol sulfate 2.5 mg /3 mL (0.083 %) solution for nebulization 2.5 mg inhalation QID PRN (Reason: Shortness Of Breath) levothyroxine 88 mcg tablet 88 mcg PO QAM nitroglycerin 0.4 mg tablet, sublingual See Rx Instructions .ROUTE .COMPLEX PRN (Reason: chest pain ) Rx Instructions: DISSOLVE 1 TABLET UNDER THE TONGUE EVERY 5 MINUTES NEEDED FOR CHEST PAIN. DO NOT EXCEED A TOTAL OF 3 DOSES IN 15 MINUTES ergocalciferol (vitamin D2) 1,250 mcg (50,000 unit) capsule 50,000 unit PO Q7D Rx Instructions: Sunday hydroxychloroquine 200 mg tablet 200 mg PO BID lamotrigine 100 mg tablet 100 mg PO BID pregabalin 50 mg capsule 50 mg PO BID Eliquis 5 mg tablet 5 mg PO BID Held prasugrel HCl 10 mg tablet 10 mg PO DAILY Hold Instructions: Resume on 09/14/25. Resume at the direction of your primary care provider Discharge Order = DC NOW: Discharge Order (Routine); Ordered 09/06/25 Ordered By: Lida Borden Referrals: Aaron Liao MD [Primary Care Provider, Internal Medicine] Patient Instructions: Opioid Safety, Patient Portal & Nichole Instructions Discharge Attestations Time Spent in Discharge Care*: greater than 30 min Quality Metrics Clinical Quality Measures [ No reported AMI, CVA or VTE this stay] Coding Level of Care Code 11642 Diagnoses Supraventricular tachycardia I47.10 Abnormal stress test R94.39 Palpitations R00.2 Hypertension I10 GERD (gastroesophageal reflux disease) K21.9 Hypothyroidism E03.9 Anxiety F41.9 Tobacco abuse Z72.0
--- NOTE | 2025-09-06 09:07 | PC.NURSE ---
Discharge Pt discharged home with family via wheelchair to personal vehicle. Discharge instructions given. Rx sent to [facility] in [place] No questions or concerns at this time. voiced understanding of discharge plan and the follow up care needed. Belongings with the patient.
== END 2025-09-06 09:06 | disposition home or self-care (01) | DRG 201 ==
LOC: ER 17:55 → CSU 19:19
PROVIDERS: Family Medicine; Internal Medicine Cardiovascular Disease; Admitting Provider Family Medicine; Emergency Provider Family Medicine; PCP Internal Medicine; Visit Provider Registered Nurse
DX: I47.10 Supraventricular tachycardia, unspecified (principal); I11.0 Hypertensive heart disease with heart failure; K21.9 Gastro-esophageal reflux disease without esophagitis; E03.9 Hypothyroidism, unspecified; I25.10 Atherosclerotic heart disease of native coronary artery without angina pectoris; E66.01 Morbid (severe) obesity due to excess calories; Z68.42 Body mass index [BMI] 45.0-49.9, adult; E78.5 Hyperlipidemia, unspecified; I50.20 Unspecified systolic (congestive) heart failure; F41.9 Anxiety disorder, unspecified; F32.A Depression, unspecified; F17.200 Nicotine dependence, unspecified, uncomplicated; Z86.711 Personal history of pulmonary embolism; Z79.01 Long term (current) use of anticoagulants; Z79.82 Long term (current) use of aspirin
CPT/HCPCS: 36415; 71045; 80053; 80061; 81001; 83735; 84443; 84484; 85014; 85018; 85025; 85730; 87486; 87581; 87633; 93005; 93306; 94640; 94660; 94799; 96374; 96375; 96376; 99291; 99292; J0153; J1644; J2060; J2405; J2470; J3490; J7030; J9999